=== PATIENT | female | born 2000 | race Caucasian/White ===

== ENCOUNTER 2019-02-15 22:50 | Emergency (ER) | payer SELFPAY ==
[2019-02-15 23:07] VITALS: BP 136/98
--- NOTE | 2019-02-16 01:09 | ED Physician Documentation ---
PD HPI HEENT - Stated complaint Stated Complaint: R EAR PX - Chief complaint Chief Complaint: Heent - History obtained from History obtained from: Patient - History of Present Illness Timing - onset: How many days ago (2-3) Timing - duration: Days Timing - details: Gradual onset, Constant, Waxing and waning Location: Right ear Improves: Nothing Worsens: Swalllowing Associated symptoms: No: Fever Similar symptoms before: Has not had sx before Recently seen: Not recently seen Review of Systems Constitutional: denies: Fever, Chills, Sweats Ears: reports: Ear pain PD PAST MEDICAL HISTORY - Past Medical History Past Medical History: No - Past Surgical History Past Surgical History: No - Present Medications Home Medications: Ambulatory Orders Medication Instructions Recorded Confirmed Amox/Clav 875/125 [Augmentin] 1 each PO Q12H #13 tablet 02/16/19 Hydrocodone/Acetaminophen 1 - 2 each PO Q6H PRN #14 tablet 02/16/19 [Hydrocodon-Acetaminophen 5-325] Neomycin/Polymyx/Hc Otic Drops 4 drops RIGHTEAR TID #1 bottle 02/16/19 [Cortisporin Ear Susp] - Allergies Allergies/Adverse Reactions: Allergies Allergy/AdvReac Type Severity Reaction Status Date / Time No Known Drug Allergies Allergy Verified 02/15/19 23:07 - Social History Does the pt smoke?: No Smoking Status: Never smoker Does the pt drink ETOH?: No Does the pt have substance abuse?: No PD ED PE NORMAL - Vitals Vital signs reviewed: Yes - General General: Alert and oriented X 3, No acute distress, Well developed/nourished - HEENT HEENT: Moist mucous membranes, Pharynx benign - Neck Neck: Supple, no meningeal sign PD ED PE EXPANDED - HEENT HEENT: R TM red, Other (right external auditory canal is erythematous and edematous. there is painful discomfort with traction on pinna and/or pressure on tragus) Results - Vitals Vitals: Vital Signs - 24 hr 02/15/19 23:03 Temperature 37 C Heart Rate 98 Respiratory 16 Rate Blood Pressure 136/98 H O2 Saturation 100 Oxygen O2 Source Room air PD MEDICAL DECISION MAKING - ED course Complexity details: considered differential, d/w patient Departure - Departure Disposition: Home, Self Care Clinical Impression: Otitis externa Qualifiers: Otitis externa type: unspecified type Chronicity: acute Laterality: right Qualified Code(s): H60.501 - Unspecified acute noninfective otitis externa, right ear Otitis media Qualifiers: Otitis media type: suppurative Chronicity: acute Laterality: right Recurrence: non-recurrent Spontaneous tympanic membrane rupture: without spontaneous rupture Qualified Code(s): H66.001 - Acute suppurative otitis media without spontaneous rupture of ear drum, right ear Condition: Good Health Concerns: right ear pain Plan of Treatment: antibiotic drops, oral antibiotic, oral analgesic Care Goals: pain control until symptom/infection resolution Assessment: see diagnoses Instructions: ED Otitis Media Acute Adult, ED Otitis Externa Prescriptions: Amox/Clav 875/125 [Augmentin] 1 each PO Q12H #13 tablet Hydrocodone/Acetaminophen [Hydrocodon-Acetaminophen 5-325] 1 - 2 each PO Q6H PRN #14 tablet PRN Reason: pain Neomycin/Polymyx/Hc Otic Drops [Cortisporin Ear Susp] 4 drops RIGHTEAR TID #1 bottle Discharge Date/Time: 02/16/19 01:40
[2019-02-16] MEDS ORDERED: NEOMYCIN/POLYMYX/HC OTIC DROPS RIGHTEAR STA (01:24)
[2019-02-16] MEDS ORDERED: HYDROcod/ACETAM 5/325 MG TABLET PO STA (01:24)
[2019-02-16] MEDS ORDERED: AMOX/CLAV 875 MG/125 MG TABLET PO STA (01:25)
== END 2019-02-16 01:40 | disposition home or self-care (01) ==
LOC: ED 22:50
DX: H60.91 Unspecified otitis externa, right ear (principal); H66.001 Acute suppurative otitis media without spontaneous rupture of ear drum, right ear
CPT/HCPCS: 99283; A9270

== ENCOUNTER 2019-04-03 17:20 | Emergency (ER) | payer OTHER ==
[2019-04-03 17:43] LABS: BASOPHILS % (AUTO) 0.4 %; EOSINOPHILS # (AUTO) 0.1 10^3/uL (0.0-0.7); EOSINOPHILS % (AUTO) 1.5 %; HGB - HEMOGLOBIN 12.8 g/dL (12.0-16.0); LYMPHOCYTES # (AUTO) 2.4 10^3/uL (1.5-3.5); LYMPHOCYTES % (AUTO) 29.3 %; MEAN CORPUSCULAR HEMOGLOBIN 23.3 pg (27.0-31.0); MEAN CORPUSCULAR HGB CONC 31.1 g/dL (32.0-36.0); MEAN PLATELET VOLUME 10.9 fL (7.9-10.8); MONOCYTES # (AUTO) 0.8 10^3/uL (0.0-1.0); MONOCYTES % (AUTO) 9.7 %; NEUTROPHILS # (AUTO) 4.8 10^3/uL (1.5-6.6); NEUTROPHILS % (AUTO) 58.9 %; PLT - PLATELET COUNT 362 10^3/uL (130-450); RED BLOOD COUNT 5.49 10^6/uL (4.20-5.40); RED CELL DISTRIBUTION WIDTH 17.2 % (12.0-15.0); WHITE BLOOD COUNT 8.2 x10^3/uL (4.8-10.8)
[2019-04-03 18:00] LABS: ALBUMIN 4.2 g/dL (3.2-5.5); ALBUMIN/GLOBULIN RATIO 1.2 (1.0-2.2); BILIRUBIN,TOTAL 0.2 mg/dL (0.2-1.0); CALCIUM 9.1 mg/dL (8.5-10.3); CREATININE 0.7 mg/dL (0.4-1.0); TOTAL PROTEIN 7.7 g/dL (6.7-8.2)
[2019-04-03 18:02] LABS: BILIRUBIN,URINE NEGATIVE (NEGATIVE); GLUCOSE, URINE (UA) NEGATIVE (NEGATIVE); KETONES,URINE (UA) NEGATIVE (NEGATIVE); LEUKOCYTE ESTERASE, URINE NEGATIVE (NEGATIVE); NITRITE,URINE NEGATIVE (NEGATIVE); OCCULT BLOOD,URINE TRACE-INTA (NEGATIVE); PH,URINE 7.5 PH (5.0-7.5); PROTEIN,URINE NEGATIVE (NEGATIVE); UROBILINOGEN,URINE 0.2 (NORMAL) E.U./dL (NORMAL)
[2019-04-03 18:03] LABS: CLARITY,URINE CLEAR (CLEAR)
--- NOTE | 2019-04-03 18:38 | ED Physician Documentation ---
PD HPI FEMALE - Stated complaint Stated Complaint: FEMALE - Chief complaint Chief Complaint: Abd Pain - History obtained from History obtained from: Patient - History of Present Illness Timing - onset: Today (this morning) Timing - details: Abrupt onset, Still present (had onset of some vag bleeding, small clot and now spotting, along with pelvic cramping that continues intermittent. Had had home preg tests positive (several tests over a few days) 2 weeks ago. Believes she is about 5-6 weeks .), Waxing and waning Associated symptoms: Vaginal bleeding. 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 denies: Dysuria, Frequency, Discharge Skin: denies: Rash, Lesions Neurologic: denies: Near syncope PD PAST MEDICAL HISTORY - Past Medical History Cardiovascular: None Respiratory: None - Past Surgical History Past Surgical History: No - Present Medications Home Medications: Ambulatory Orders Medication Instructions Recorded Confirmed Amox/Clav 875/125 [Augmentin] 1 each PO Q12H #13 tablet 02/16/19 Hydrocodone/Acetaminophen 1 - 2 each PO Q6H PRN #14 tablet 02/16/19 [Hydrocodon-Acetaminophen 5-325] Neomycin/Polymyx/Hc Otic Drops 4 drops RIGHTEAR TID #1 bottle 02/16/19 [Cortisporin Ear Susp] - Allergies Allergies/Adverse Reactions: Allergies Allergy/AdvReac Type Severity Reaction Status Date / Time No Known Drug Allergies Allergy Verified 04/03/19 17:28 - Social History Does the pt smoke?: No Smoking Status: Never smoker Does the pt drink ETOH?: No Does the pt have substance abuse?: No PD ED PE NORMAL - Vitals Vital signs reviewed: Yes - General General: Alert and oriented X 3, No acute distress, Well developed/nourished - HEENT HEENT: Pharynx benign - Neck Neck: Supple, no meningeal sign, No adenopathy - Cardiac Cardiac: RRR, No murmur - Respiratory Respiratory: Clear bilaterally - Abdomen Abdomen: Normal bowel sounds, Soft, Non tender - Female Female : Deferred - Back Back: No CVA TTP - Derm Derm: Normal color, Warm and dry Results - Vitals Vitals: Oxygen O2 Source Room air - Labs Labs: Laboratory Tests 04/03/19 04/03/19 04/03/19 17:35 17:35 17:35 WBC 8.2 RBC 5.49 H Hgb 12.8 Hct 41.2 MCV 75.0 L MCH 23.3 L MCHC 31.1 L RDW 17.2 H Plt Count 362 MPV 10.9 H Neut # (Auto) 4.8 Lymph # (Auto) 2.4 [place] # (Auto) 0.8 Eos # (Auto) 0.1 Baso # (Auto) 0.0 Absolute Nucleated RBC 0.00 Nucleated RBC % 0.0 Sodium 140 Potassium 4.0 Chloride 104 Carbon Dioxide 26 Anion Gap 10.0 BUN 10 Creatinine 0.7 Estimated GFR (MDRD) 107 Glucose 119 H Calcium 9.1 Total Bilirubin 0.2 AST 17 ALT 18 Alkaline Phosphatase 91 Total Protein 7.7 Albumin 4.2 Globulin 3.5 Albumin/Globulin Ratio 1.2 Lipase 27 HCG, Quant Urine Color Urine Clarity Urine pH Ur Specific [place] Urine Protein Urine Glucose (UA) Urine Ketones Urine Occult Blood Urine Nitrite Urine Bilirubin Urine Urobilinogen Ur Leukocyte Esterase Ur Microscopic Review Urine Culture Comments Blood Type O POSITIVE 04/03/19 04/03/19 17:35 17:55 WBC RBC Hgb Hct MCV MCH MCHC RDW Plt Count MPV Neut # (Auto) Lymph # (Auto) [place] # (Auto) Eos # (Auto) Baso # (Auto) Absolute Nucleated RBC Nucleated RBC % Sodium Potassium Chloride Carbon Dioxide Anion Gap BUN Creatinine Estimated GFR (MDRD) Glucose Calcium Total Bilirubin AST ALT Alkaline Phosphatase Total Protein Albumin Globulin Albumin/Globulin Ratio Lipase HCG, Quant < 0.60 Urine Color YELLOW Urine Clarity CLEAR Urine pH 7.5 Ur Specific [place] 1.015 Urine Protein NEGATIVE Urine Glucose (UA) NEGATIVE Urine Ketones NEGATIVE Urine Occult Blood TRACE-INTA Urine Nitrite NEGATIVE Urine Bilirubin NEGATIVE Urine Urobilinogen 0.2 (NORMAL) Ur Leukocyte Esterase NEGATIVE Ur Microscopic Review NOT INDICATED Urine Culture Comments NOT INDICATED Blood Type - Rads (name of study) pelvic U/S Radiology: Prelim report reviewed (normal. No IUP. ), See rad report PD MEDICAL DECISION MAKING - ED course Complexity details: reviewed results, considered differential (presume the home preg tests were true, the low quant and normal U/S would represent completed miscarriage. ), d/w patient Departure - Departure Disposition: 01 Home, Self Care Clinical Impression: Vaginal bleeding affecting early , Complete miscarriage Condition: Stable Record reviewed to determine appropriate education?: Yes Instructions: ED Miscarriage Completed Comments: If we presume your prior tests were accurate, then this would represent a complete miscarriage as you are hCG level is below the point and your ultrasound does not show any . I presume the cramping and bleeding will stop after a day or so. Tylenol ibuprofen as needed for pains. Stay well-hydrated. Recheck with your primary care if not all better over the next few days. Discharge Date/Time: 04/03/19 21:02
[2019-04-03 19:43] VITALS: BP 127/64
--- NOTE | 2019-04-03 20:50 | Ultrasound Report ---
Reason: had positive preg test 3 wks ago; vag bleeding Procedure Date: 04/03/2019 Accession Number: [id number] / [id number] Procedure: US - Pelvic w/Transvag+Doppler Ltd CPT Code: FULL RESULT: EXAM: PELVIC ULTRASOUND WITH DOPPLERS CLINICAL HISTORY: Had positive preg test 3 wks ago; vag bleeding. COMPARISON: None. TECHNIQUE: Realtime transabdominal imaging performed to identify the uterus and adnexa and as an overview of other pelvic structures, followed by transvaginal imaging for better assessment of the endometrium and adnexa, with static image documentation. Color flow imaging and Doppler spectral analysis was performed to evaluate blood flow to the ovaries given pelvic pain and clinical concern for ovarian torsion. FINDINGS: Uterus: 7.2 x 3.6 x 4.2 cm, volume 55.4 cc. Anteverted position. Normal overall size and echotexture. Masses: Right anterior 1.8 cm general fibroid. 1.2 cm left anterior intramural fibroid with a serosal component. Endometrium: 7 mm. No focal endometrial abnormalities. Cervix: Trace fluid Right Ovary: 2.7 x 3.3 x 2.2 cm, volume 10.3 cc. Normal echotexture. Arterial and venous blood flow are present. Adnexa are unremarkable. Left Ovary: 2.6 x 2 x 2.2 cm, volume 6.1 cc. Normal echotexture. Arterial and venous blood flow are present. Adnexa are unremarkable. Free Fluid: None. Other: None. IMPRESSION: No acute sonographic abnormalities. Fibroid uterus. RADIA
== END 2019-04-03 21:02 | disposition home or self-care (01) ==
LOC: ED 17:20
DX: O03.9 Complete or unspecified spontaneous abortion without complication (principal)
CPT/HCPCS: 36415; 76830; 76856; 80053; 81001; 81003; 83690; 84702; 85025; 86900; 86901; 87086; 93976; 99284

== ENCOUNTER 2019-06-02 04:47 | Emergency (ER) | payer OTHER ==
[2019-06-02] MEDS ORDERED: SODIUM CHLORIDE 0.9% 1,000 ML IV ONE (05:38)
[2019-06-02] MEDS ORDERED: LORazepam 2 MG/ML VIAL IVP STA (05:38)
[2019-06-02] MEDS ORDERED: KETOROLAC 15 MG/ML VIAL IVP STA (05:38)
[2019-06-02] MEDS ORDERED: MORPHINE 2 MG/ML CARPUJECT IVP STA (05:39)
[2019-06-02 06:15] LABS: BASOPHILS % (AUTO) 0.2 %; EOSINOPHILS # (AUTO) 0.2 10^3/uL (0.0-0.7); EOSINOPHILS % (AUTO) 2.1 %; HGB - HEMOGLOBIN 11.2 g/dL (12.0-16.0); LYMPHOCYTES # (AUTO) 2.8 10^3/uL (1.5-3.5); LYMPHOCYTES % (AUTO) 32.1 %; MEAN CORPUSCULAR HEMOGLOBIN 22.4 pg (27.0-31.0); MEAN CORPUSCULAR HGB CONC 30.2 g/dL (32.0-36.0); MEAN CORPUSCULAR VOLUME 74.2 fL (81.0-99.0); MEAN PLATELET VOLUME 10.7 fL (7.9-10.8); MONOCYTES # (AUTO) 0.8 10^3/uL (0.0-1.0); NEUTROPHILS # (AUTO) 4.9 10^3/uL (1.5-6.6); NEUTROPHILS % (AUTO) 56.3 %; PLT - PLATELET COUNT 354 10^3/uL (130-450); RED CELL DISTRIBUTION WIDTH 16.8 % (12.0-15.0); WHITE BLOOD COUNT 8.7 x10^3/uL (4.8-10.8)
--- NOTE | 2019-06-02 06:33 | CT Report ---
Reason: trouble speaking Procedure Date: 06/02/2019 Accession Number: [id number] / [id number] Procedure: CT - HEAD WO CPT Code: FULL RESULT: EXAM: CT HEAD EXAM DATE: 06/02/2019 06:10 AM. CLINICAL HISTORY: Trouble speaking. COMPARISON: None. TECHNIQUE: Multiaxial CT images were obtained from the foramen magnum to the vertex. Reformats: Sagittal and coronal. IV contrast: None. In accordance with CT protocol optimization, one or more of the following dose reduction techniques were utilized for this exam: automated exposure control, adjustment of mA and/or KV based on patient size, or use of iterative reconstructive technique. FINDINGS: Parenchyma: No intraparenchymal hemorrhage. No evidence of mass, midline shift, or CT findings of infarction. Bains-white differentiation is distinct. Extraaxial Spaces: Normal for age. No subdural or epidural collections identified. Ventricles: Normal in size and position. Sinuses and Orbits: Imaged paranasal sinuses, orbits, and mastoids show no significant abnormality. Bones: No evidence of fracture or calvarial defect. Other: None. IMPRESSION: Normal head CT. RADIA
[2019-06-02 06:37] LABS: ALBUMIN 3.9 g/dL (3.2-5.5); ALBUMIN/GLOBULIN RATIO 1.1 (1.0-2.2); ALKALINE PHOSPHATASE 93 IU/L (42-121); ALT ALANINE AMINOTRANSFERASE 15 IU/L (10-60); AST ASPARTATE AMINOTRANSFERASE 15 IU/L (10-42); BILIRUBIN,TOTAL < 0.2 mg/dL (0.2-1.0); BUN - BLOOD UREA NITROGEN 13 mg/dL (6-20); CALCIUM 8.9 mg/dL (8.5-10.3); CARBON DIOXIDE - CO2 24 mmol/L (21-32); CHLORIDE 107 mmol/L (101-111); CREATININE 0.6 mg/dL (0.4-1.0); GFR - MDRD 127 (>89); GLUCOSE 109 mg/dL (70-100); LIPASE 27 U/L (22-51); SODIUM 139 mmol/L (135-145); TOTAL PROTEIN 7.6 g/dL (6.7-8.2)
--- NOTE | 2019-06-02 06:45 | ED Physician Documentation ---
PD HPI ALTERED MENTAL STATUS - Stated complaint Stated Complaint: CONFUSION/SHAKING/SLURRED SPEECH - Chief complaint Chief Complaint: Cardiac - History obtained from History obtained from: Patient, Family - History of Present Illness Timing - onset: How many hours ago (1) Timing - duration: Hours (1) Timing - details: Abrupt onset (her partner said the patient started to have shaking while asleep. She awoke and had nausea and then vomited. She was having trouble speaking, seeming confused. Denies headache. Did have some chest pain and dyspnea.) Quality / character: Confused Associated symptoms: Dyspnea, NVD. No: Fever, Headache, Cough, Focal weakness Contributing factors: Other (She was seen about 6 weeks ago with presumed completed miscarriage. She and her partner state she has been having periods of anxiety and poor sleep and poor concentration since that time. She has had several episodes of general shakiness chest pain and shortness of breath. They were on a trip to [place] about 1-1/2 weeks ago and she had an episode they are similar to tonight. They went to the ER there and had blood tests x-ray and EKG and diagnosed with likely panic attack. No medications were prescribed. She had not been able to arrange a follow-up with her primary care as yet as they had been given an appointment for the of the month.). No: Recent illness, Recent injury Basline status: Alert and oriented X 3, Ambulatory Recently seen: Emergency Dept (About 10 days ago in [place] with a similar episode of chest pain and trouble breathing and confusion.), Other (She was seen about 6 weeks ago with some vaginal bleeding and cramping with diagnosis of completed miscarriage.) Review of Systems Constitutional: denies: Fever, Chills, Myalgias Nose: denies: Rhinorrhea / runny nose, Congestion Throat: denies: Sore throat Cardiac: reports: Chest pain / pressure, Palpitations, Pedal edema (mild at a nkles). denies: Calf pain Respiratory: denies: Cough GI: reports: Nausea, Vomiting (just this overnight, single episode). denies: Abdominal Pain, Diarrhea : denies: Dysuria, Frequency Musculoskeletal: denies: Neck pain, Back pain Neurologic: reports: Generalized weakness, Difficulty speaking. denies: Focal weakness, Numbness, Seizure, Headache, Head injury PD PAST MEDICAL HISTORY - Past Medical History Cardiovascular: None Respiratory: None - Past Surgical History Past Surgical History: No - Present Medications Home Medications: Ambulatory Orders Medication Instructions Recorded Confirmed LORazepam [Ativan] 1 mg PO BID PRN #15 tablet 06/02/19 Naproxen 500 mg PO BID #20 tablet 06/02/19 Trazodone HCl 25 - 50 mg PO QPM #15 tablet 06/02/19 - Allergies Allergies/Adverse Reactions: Allergies Allergy/AdvReac Type Severity Reaction Status Date / Time Bleach (Sodium Hypochlorite) Allergy Itching Verified 06/02/19 05:16 - Social History Does the pt smoke?: No Smoking Status: Never smoker Does the pt drink ETOH?: No Does the pt have substance abuse?: No PD ED PE NORMAL - Vitals Vital signs reviewed: Yes - General General: Alert and oriented X 3, No acute distress (She does seem generally a bit shaky and anxious. She is having some stuttering type speech pattern but is able to answer questions appropriately. She is awake and alert.), Well developed/nourished - HEENT HEENT: Pharynx benign, Other (no oral lesions) - Neck Neck: Supple, no meningeal sign, No adenopathy - Cardiac Cardiac: RRR (Regular but tachycardic.), No murmur - Respiratory Respiratory: No respiratory distress, Clear bilaterally, Other (Some tenderness noted in the parasternal area without any redness nor crepitance.) - Abdomen Abdomen: Soft, Non tender - Derm Derm: Normal color, Warm and dry - Extremities Extremities: No tenderness to palpate, Normal ROM s pain, No edema, Other (Mild calf tenderness on the right leg. No redness no edema.) - Neuro Neuro: Alert and oriented X 3, ict account manager 2-12 intact, No motor deficit, No sensory deficit. No: Normal speech (Slight stuttering and word search. It does seem to improve when she takes of breath and relaxes a little) Eye Opening: Spontaneous Motor: Obeys Commands Verbal: Oriented GCS Score: 15 - Psych Psych: No: Normal affect (anxious) Results - Vitals Vitals: Vital Signs - 24 hr 06/02/19 05:06 Temperature 37.4 C Heart Rate 114 H Respiratory 17 Rate Blood Pressure 122/48 L O2 Saturation 100 Oxygen O2 Source Room air - EKG (time done) 05:13 Rate: Rate (enter#) (91) Rhythm: NSR [place]: Normal Intervals: Normal [place] QRS: Normal Ischemia: Normal ST segments. No: ST elevation c/w ischemia, ST depression - Labs Labs: Laboratory Tests 06/02/19 06/02/19 06/02/19 06:00 06:00 06:00 WBC 8.7 RBC 5.00 Hgb 11.2 L Hct 37.1 MCV 74.2 L MCH 22.4 L MCHC 30.2 L RDW 16.8 H Plt Count 354 MPV 10.7 Neut # (Auto) 4.9 Lymph # (Auto) 2.8 [place] # (Auto) 0.8 Eos # (Auto) 0.2 Baso # (Auto) 0.0 Absolute Nucleated RBC 0.00 Nucleated RBC % 0.0 D-Dimer < 200.0 L Sodium 139 Potassium 3.4 L Chloride 107 Carbon Dioxide 24 Anion Gap 8.0 BUN 13 Creatinine 0.6 Estimated GFR (MDRD) 127 Glucose 109 H Calcium 8.9 Magnesium 2.0 Total Bilirubin < 0.2 L AST 15 ALT 15 Alkaline Phosphatase 93 Troponin I High Sens Total Protein 7.6 Albumin 3.9 Globulin 3.7 Albumin/Globulin Ratio 1.1 Lipase 27 TSH 06/02/19 06/02/19 06:00 06:00 WBC RBC Hgb Hct MCV MCH MCHC RDW Plt Count MPV Neut # (Auto) Lymph # (Auto) [place] # (Auto) Eos # (Auto) Baso # (Auto) Absolute Nucleated RBC Nucleated RBC % D-Dimer Sodium Potassium Chloride Carbon Dioxide Anion Gap BUN Creatinine Estimated GFR (MDRD) Glucose Calcium Magnesium Total Bilirubin AST ALT Alkaline Phosphatase Troponin I High Sens 2.6 Total Protein Albumin Globulin Albumin/Globulin Ratio Lipase TSH 4.27 - Rads (name of study) chest xray Radiology: Prelim report reviewed (normal), See rad report head CT Radiology: Prelim report reviewed (No acute process), See rad report PD MEDICAL DECISION MAKING - ED course Complexity details: considered differential (Does seem possibly panic attack with anxiety and shakiness right now. She does not have any headache as would consider a migraine with some shakiness difficulty speaking and nausea. Still could be some version of a migraine. Her chest is uncomfortable and her EKG chest x-ray and blood tests are normal. This excludes [place] and PE. Also excludes pneumonia and pneumothorax.), d/w patient ED course: She has been having general anxiety since her miscarriage about 6 weeks ago. She has been having chest pain episodes and shakiness. We could go short-term with some antianxiety type medicine and also a sleep aid at night as she states she has not slept very well for last several nights. It does not sound seizure like. They should follow-up with her primary care at the soonest appointment. Meanwhile we can prescribe perhaps low-dose trazodone at night for sleep and general anxiety and supplement with Ativan twice daily if needed for anxiety. For the chest pain, will prescribe naproxen anti-inflammatory twice daily for 7 to 10 days and add Tylenol if needed. Departure - Departure Disposition: Home, Self Care Clinical Impression: Anxiety reaction Chest pain Qualifiers: Chest pain type: chest pain on breathing Qualified Code(s): R07.1 - Chest pain on breathing; R07.81 - Pleurodynia AMS (altered mental status) Qualifiers: Altered mental status type: disorientation Qualified Code(s): R41.0 - Disorientation, unspecified Condition: Stable Record reviewed to determine appropriate education?: Yes Instructions: ED Chest Pain Costochondritis, ED Stress React Follow-Up: ED[facility]UN[facility] Lujan [Provider Group] Prescriptions: LORazepam [Ativan] 1 mg PO BID PRN #15 tablet PRN Reason: Anxiety Naproxen 500 mg PO BID #20 tablet Trazodone HCl 25 - 50 mg PO QPM #15 tablet Comments: Stay well-hydrated and normal activity. Naproxen anti-inflammatory twice daily with food for the next 7 to 10 days for the chest wall/chest pain. Use half to 1 tablet of the trazodone at night to help with sleep and see if it helps with general anxiety throughout the day as well. Add lorazepam twice daily if needed for general anxiety. Follow-up with your primary care at their soonest appointment. Seek counseling to help with acute grief reaction.
--- NOTE | 2019-06-02 06:49 | XRAY Report ---
Reason: chest pain Procedure Date: 06/02/2019 Accession Number: [id number] / [id number] Procedure: XR - Chest 1 View X-Ray CPT Code: 19331 FULL RESULT: EXAM: CHEST RADIOGRAPHY EXAM DATE: 06/02/2019 06:14 AM. CLINICAL HISTORY: Chest pain. COMPARISON: None. TECHNIQUE: 1 view. FINDINGS: Lungs/Pleura: No focal opacities evident. No pleural effusion. No pneumothorax. Mediastinum: Within exam limitations, the cardiomediastinal contour is normal. Other: None. IMPRESSION: Normal single view chest. RADIA
[2019-06-02 07:39] VITALS: BP 118/54
== END 2019-06-02 07:40 | disposition home or self-care (01) ==
LOC: ED 04:47
DX: F41.9 Anxiety disorder, unspecified (principal); R07.1 Chest pain on breathing; R07.81 Pleurodynia; R41.0 Disorientation, unspecified; R47.9 Unspecified speech disturbances; M79.661 Pain in right lower leg
CPT/HCPCS: 36415; 70450; 71045; 83690; 83735; 84484; 85379; 93005; 96374; 96375; 99283; 99284; J2060; 80053; 84443; 85025

== ENCOUNTER 2021-01-09 21:27 | Emergency (ER) | payer SELFPAY ==
--- OUTSIDE RECORDS SUMMARY | 2021-01-09 21:31 | EXTERNAL MEDICAL SUMMARY RPT | Continuity of Care Document ---
:2000 Demographics Phone Unavailable Preferred Language Unknown Marital Status Unknown Congregational Affiliation Unknown Race Unknown Ethnic Group Unknown Author Organization [address] [place] [address] Phone Allergies Encounters Medications Problems Results
[2021-01-09 22:11] VITALS: BP 138/74
--- NOTE | 2021-01-09 22:14 | ED Physician Documentation ---
PD HPI LOWER EXT INJURY - Stated complaint Stated Complaint: L FOOT INJ - Chief complaint Chief Complaint: Ext Problem - History obtained from History obtained from: Patient - History of Present Illness PD HPI LOW EXT INJURY LOCATION: Left, Toe (little and 4th toes) Type of injury: Blunt / blow (she struck toes on coffee table leg, with bending/splaying of the toes. Some bruising through the day and swelling. Hurting for walking through the day.) Where injury occurred: Home Timing - onset: Today (this morning) Timing - duration: Days (1/2 day) Timing - details: Abrupt onset, Still present Worsened by: Moving, Palpating Associated symptoms: Swelling, Discolored (some early bruising 4th toe middle phalanx dorsal). 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 : None HEENT: None Psych: None Musculoskeletal: None Derm: None - Past Surgical History Past Surgical History: No - Present Medications Home Medications: Ambulatory Orders Medication Instructions Recorded Confirmed No Known Home Medications 01/09/21 01/09/21 - Allergies Allergies/Adverse Reactions: Allergies Allergy/AdvReac Type Severity Reaction Status Date / Time Bleach (Sodium Hypochlorite) Allergy Itching Verified 01/09/21 22:11 - Social History Does the pt smoke?: No Smoking Status: Never smoker Does the pt drink ETOH?: No Does the pt have substance abuse?: No - Immunizations Immunizations are current?: Yes - POLST Patient has POLST: No PD ED PE NORMAL - Vitals Vital signs reviewed: Yes - General General: Alert and oriented X 3, No acute distress, Well developed/nourished - Derm Derm: Normal color, Warm and dry - Extremities Extremities: Other (4th and 5th toes tender dorsal aspect with faint bruising dorsal 4th middle phalanx. No noted deformity. Some swelling. Reluctant flexion due to pain/swelling. Normal color in cap refill. Normal sensation. ) - Neuro Neuro: No motor deficit, No sensory deficit Results - Vitals Vitals: Vital Signs - 24 hr 01/09/21 01/09/21 22:43 23:01 Respiratory 16 15 Rate Oxygen O2 Source Room air - Rads (name of study) toes Radiology: Prelim report reviewed (no fractures), See rad report PD MEDICAL DECISION MAKING - ED course Complexity details: considered differential, d/w patient Departure - Departure Disposition: Home, Self Care Clinical Impression: Sprain of toe Qualifiers: Encounter type: initial encounter Qualified Code(s): S93.509A - Unspecified sprain of unspecified toe(s), initial encounter Condition: Stable Record reviewed to determine appropriate education?: Yes Instructions: ED Sprain Toe Follow-Up: [facility] Lujan [Provider Group] Comments: No fracture seen on your x-ray. Presume you will still be sore and swollen from the injury and sprain for several days or so. Firm soled shoe and I wrote a note for no boot wearing for 3 to 4 days to allow improvement in the initial injury. Ibuprofen 400 to 600 mg 3 times a day for the next several days. Add Tylenol if needed for pains. Activity as tolerated. Forms: Activity restrictions Discharge Date/Time: 01/09/21 23:09
[2021-01-09] MEDS ORDERED: ACETAMINOPHEN 325 MG TABLET PO STA (22:24)
[2021-01-09] MEDS ORDERED: IBUPROFEN 600 MG TABLET PO STA (22:24)
--- OUTSIDE RECORDS SUMMARY | 2021-01-09 22:37 | EXTERNAL MEDICAL SUMMARY RPT | Continuity of Care Document ---
:2000 Demographics Phone Unavailable Preferred Language Unknown Marital Status Unknown Baptism Affiliation Unknown Race Unknown Ethnic Group Unknown Author Organization [facility] Address [address] [place] [address] Phone Allergies Encounters Medications Problems Results
--- NOTE | 2021-01-10 10:23 | XRAY Report ---
PROCEDURE: Foot 3 View LT INDICATIONS: PAIN/TENDERNESS L FOOT TECHNIQUE: 3 views of the foot were acquired. COMPARISON: None FINDINGS: Bones: No fractures or dislocations. No suspicious bony lesions. Soft tissues: No tibiotalar joint effusion. Achilles tendon appears normal. IMPRESSION: No visualized acute fracture or dislocation. However, occult injury cannot be excluded. Recommend brittany rt interval imaging follow-up in 7-10 days as clinically indicated for additional evaluation. Reviewed by: Juana Chaney MD on 01/10/2021 10:22 AM PDT Approved by: Juana Chaney MD on 01/10/2021 10:22 AM PDT Station ID: [id number]
== END 2021-01-09 23:09 | disposition home or self-care (01) ==
LOC: ED 21:27
DX: S93.515A Sprain of interphalangeal joint of left lesser toe(s), initial encounter (principal); S90.122A Contusion of left lesser toe(s) without damage to nail, initial encounter; W22.03XA Walked into furniture, initial encounter; Y93.01 Activity, walking, marching and hiking; Y92.009 Unspecified place in unspecified non-institutional (private) residence as the place of occurrence of the external cause
CPT/HCPCS: 73630; 99282; 99283; A9270

== ENCOUNTER 2021-02-06 18:41 | Emergency (ER) | payer SELFPAY ==
[2021-02-06 19:45] LABS: BASOPHILS % (AUTO) 0.2 %; EOSINOPHILS # (AUTO) 0.1 10^3/uL (0.0-0.7); EOSINOPHILS % (AUTO) 1.3 %; HGB - HEMOGLOBIN 10.9 g/dL (12.0-16.0); LYMPHOCYTES # (AUTO) 2.3 10^3/uL (1.5-3.5); LYMPHOCYTES % (AUTO) 24.7 %; MEAN CORPUSCULAR HGB CONC 29.5 g/dL (32.0-36.0); MEAN CORPUSCULAR VOLUME 71.2 fL (81.0-99.0); MEAN PLATELET VOLUME 10.8 fL (7.9-10.8); MONOCYTES # (AUTO) 0.8 10^3/uL (0.0-1.0); MONOCYTES % (AUTO) 8.1 %; NEUTROPHILS # (AUTO) 6.1 10^3/uL (1.5-6.6); NEUTROPHILS % (AUTO) 65.4 %; PLT - PLATELET COUNT 388 10^3/uL (130-450); RED CELL DISTRIBUTION WIDTH 17.7 % (12.0-15.0); WHITE BLOOD COUNT 9.4 x10^3/uL (4.8-10.8)
[2021-02-06 19:56] LABS: ALBUMIN 4.1 g/dL (3.2-5.5); ALBUMIN/GLOBULIN RATIO 1.2 (1.0-2.2); BILIRUBIN,TOTAL 0.4 mg/dL (0.2-1.0); CALCIUM 8.6 mg/dL (8.5-10.3); CREATININE 0.7 mg/dL (0.4-1.0); POTASSIUM 3.8 mmol/L (3.5-5.0); TOTAL PROTEIN 7.6 g/dL (6.7-8.2)
[2021-02-06 20:04] LABS: BILIRUBIN,URINE NEGATIVE (NEGATIVE); CLARITY,URINE CLEAR (CLEAR); GLUCOSE, URINE (UA) NEGATIVE (NEGATIVE); KETONES,URINE (UA) NEGATIVE (NEGATIVE); LEUKOCYTE ESTERASE, URINE NEGATIVE (NEGATIVE); NITRITE,URINE NEGATIVE (NEGATIVE); OCCULT BLOOD,URINE NEGATIVE (NEGATIVE); PH,URINE 6.5 PH (5.0-7.5); PROTEIN,URINE NEGATIVE (NEGATIVE); UROBILINOGEN,URINE 0.2 (NORMAL) E.U./dL (NORMAL)
--- NOTE | 2021-02-06 20:20 | ED Physician Documentation ---
History of Present Illness - Stated complaint Stated Complaint: CRAMPS/NAUSEA/DIZZY - Chief complaint Chief Complaint: Abd Pain - Additonal information Additional information: 20-year-old female presents emergency department for evaluation of a constellation of symptoms. For much of the last week she has been feeling faint and dizzy. She would feel dizzy if she stood up too fast. She has been nauseated and sensitive to light and smell. She has also had a headache. She took a number of home test that were negative. She has begun having lower abdominal uterine pain that began 3 days ago and the worst was this afternoon. Mostly right-sided. Some nausea. Vomiting once no diarrhea. No dysuria urgency or frequency. 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 Review of Systems Constitutional: reports: Fatigue. denies: Fever, Chills Eyes: denies: Loss of vision, Decreased vision Ears: reports: Reviewed and negative Nose: reports: Reviewed and negative Throat: reports: Reviewed and negative Cardiac: denies: Chest pain / pressure, Palpitations Respiratory: denies: Dyspnea, Cough GI: reports: Abdominal Pain, Nausea, Vomiting. denies: Constipation, Diarrhea, Hematemesis : denies: Dysuria, Frequency, Hesitancy Skin: denies: Rash, Lesions Musculoskeletal: denies: Neck pain, Back pain Neurologic: reports: Near syncope, Headache. denies: Generalized weakness, Focal weakness, Syncope, Seizure, Confused, Altered mental status, LOC PD PAST MEDICAL HISTORY - Past Medical History Past Medical History: Yes Cardiovascular: None Respiratory: None Neuro: None Endocrine/Autoimmune: None GI: None ADDICTIONS RECOVERY SPECIALIST: None : None HEENT: None Psych: None Musculoskeletal: None Derm: None - Past Surgical History Past Surgical History: No - Present Medications Home Medications: Ambulatory Orders Medication Instructions Recorded Confirmed No Known Home Medications 01/09/21 01/09/21 - Allergies Allergies/Adverse Reactions: Allergies Allergy/AdvReac Type Severity Reaction Status Date / Time Bleach (Sodium Hypochlorite) Allergy Itching Verified 02/06/21 19:25 - Social History Does the pt smoke?: No Smoking Status: Never smoker Does the pt drink ETOH?: No Does the pt have substance abuse?: No - Immunizations Immunizations are current?: Yes - POLST Patient has POLST: No PD ED PE EXPANDED - General General: Alert, No acute distress, Well developed/nourished - Cardiac Cardiac: Regular Rate, Radial strong equal, Pedal strong equal, Cap refill < 2 sec. No: Murmur Present - Respiratory Respiratory: Clear to ausultation abdullahi. No: Distress, Labored - Abdomen Abdomen: Normal Bowel sounds. No: Tender to palpation - Derm Derm: Normal color, Warm and dry - Extremities Extremities: Normal. No: Deformity, Tenderness - Neuro Neuro: Alert and Oriented X 3, CNII-XII intact, Normal gait, Normal finger nose, Normal speech - GCS Eye Opening: Spontaneous Motor: Obeys Commands Verbal: Oriented Total: 15 Results - Vitals Vitals: Vital Signs - 24 hr 02/06/21 02/06/21 02/06/21 19:20 19:24 21:22 Temperature 37.0 C Heart Rate 96 84 Heart Rate [ 82 Sitting] Heart Rate [ 91 Standing] Heart Rate [ 90 Supine] Respiratory 18 15 Rate Blood Pressure 126/79 111/88 H Blood Pressure 120/73 [Sitting] Blood Pressure 123/76 [Standing] Blood Pressure 128/74 [Supine] O2 Saturation 100 100 Oxygen O2 Source Room air - EKG (time done) 2021 Rate: Rate (enter#) (82) Rhythm: NSR [place]: Normal Intervals: Normal IN QRS: Normal Ischemia: Normal ST segments Compare to prior EKG: Old EKG unavailable Computer interpretation: Agree with computer - Labs Labs: Laboratory Tests 02/06/21 02/06/21 02/06/21 18:30 18:30 19:36 WBC 9.4 RBC 5.20 Hgb 10.9 L Hct 37.0 MCV 71.2 L MCH 21.0 L MCHC 29.5 L RDW 17.7 H Plt Count 388 MPV 10.8 Neut # (Auto) 6.1 Lymph # (Auto) 2.3 [place] # (Auto) 0.8 Eos # (Auto) 0.1 Baso # (Auto) 0.0 Absolute Nucleated RBC 0.00 Nucleated RBC % 0.0 Sodium Potassium Chloride Carbon Dioxide Anion Gap BUN Creatinine Estimated GFR (MDRD) Glucose Calcium Total Bilirubin AST ALT Alkaline Phosphatase Total Protein Albumin Globulin Albumin/Globulin Ratio Lipase Serum HCG, Qual Urine Color YELLOW Urine Clarity CLEAR Urine pH 6.5 Ur Specific [place] 1.025 Urine Protein NEGATIVE Urine Glucose (UA) NEGATIVE Urine Ketones NEGATIVE Urine Occult Blood NEGATIVE Urine Nitrite NEGATIVE Urine Bilirubin NEGATIVE Urine Urobilinogen 0.2 (NORMAL) Ur Leukocyte Esterase NEGATIVE Ur Microscopic Review NOT INDICATED Urine Culture Comments NOT INDICATED Urine HCG, Qual NEGATIVE 02/06/21 02/06/21 19:36 19:36 WBC RBC Hgb Hct MCV MCH MCHC RDW Plt Count MPV Neut # (Auto) Lymph # (Auto) [place] # (Auto) Eos # (Auto) Baso # (Auto) Absolute Nucleated RBC Nucleated RBC % Sodium 137 Potassium 3.8 Chloride 106 Carbon Dioxide 25 Anion Gap 6.0 BUN 13 Creatinine 0.7 Estimated GFR (MDRD) 105 Glucose 112 H Calcium 8.6 Total Bilirubin 0.4 AST 13 ALT 16 Alkaline Phosphatase 90 Total Protein 7.6 Albumin 4.1 Globulin 3.5 Albumin/Globulin Ratio 1.2 Lipase 25 Serum HCG, Qual NEGATIVE Urine Color Urine Clarity Urine pH Ur Specific [place] Urine Protein Urine Glucose (UA) Urine Ketones Urine Occult Blood Urine Nitrite Urine Bilirubin Urine Urobilinogen Ur Leukocyte Esterase Ur Microscopic Review Urine Culture Comments Urine HCG, Qual - Rads (name of study) CT abd Radiology: Final report received (Appendix is at the upper limits of normal in size without periappendiceal inflammation. Right lower quadrant subcentimeter lymph nodes are present suggestive of mesenteric adenitis) PD MEDICAL DECISION MAKING - ED course Complexity details: reviewed results, re-evaluated patient, d/w patient ED course: 20-year-old female presents emergency department for evaluation of feeling faint and lightheaded as well as nausea and right lower quadrant abdominal pain. The symptoms have been persisting for a few days. On exam she had right lower quadrant tenderness with a little bit of guarding and rebound. She was unsure if but her urine and serum chemistry today is a negative for . Screening labs do show a known and baseline microcytic anemia likely iron deficient. A CT of the abdomen does show likely mesenteric adenitis. No findings consistent with acute appendicitis. Patient was feeling improved here in the ER following IV fluids as well as analgesia and Zofran. Will recommend fluids and rest at home. Emergent return precautions were discussed for worsening symptoms. Departure - Departure Disposition: 01 Home, Self Care Clinical Impression: RLQ abdominal pain, Mesenteric adenitis Condition: Stable Record reviewed to determine appropriate education?: Yes Instructions: ED Adenitis Mesenteric Comments: You were seen in the emergency department today for headache, feeling lightheaded nauseated as well as having lower abdominal pain. Your screening labs did not show any worrisome findings though you do have a baseline but unchanged anemia. Continue vitamins. As we discussed the CT of the abdomen does show mesenteric adenitis. This is an inflammation in the lymph no todd of your mesenteric line. This is something that is typically self resolving and does not need antibiotics or other treatment. I do recommend ibuprofen with food 2-3 times a day. Take lots of fluids and get plenty rest. Return to the ER for fevers, suddenly severe or different abdominal pain, uncontrolled vomiting. Please discuss this ED visit with your primary care doctor as soon as you are able.
[2021-02-06 20:24] LABS: HCG UR QUAL NEGATIVE
[2021-02-06] MEDS ORDERED: IOVERSOL 320 100 ML VIAL IVP ONE ×2 (20:24→21:13)
[2021-02-06 20:37] LABS: HCG,QUALITATIVE BLOOD NEGATIVE
--- NOTE | 2021-02-06 21:46 | CT Report ---
PROCEDURE: Abdomen/Pelvis W INDICATIONS: RLQ abd pain CONTRAST: IV CONTRAST: Optiray 320 ml: 100 PO CONTRAST: *NO PO CONTRAST TECHNIQUE: After the administration of IV contrast, 5 mm thick sections acquired from the diaphragms to the symp hysis. 5 mm thick coronal and sagittal reformats were acquired. For radiation dose reduction, the f ollowing was used: automated exposure control, adjustment of mA and/or kV according to patient size. COMPARISON: None. FINDINGS: Image quality: Excellent. ABDOMEN: Lung bases: Lung bases are clear. Heart size is normal. Solid organs: Liver is mildly enlarged with steatosis. The spleen is normal in size and enhancement. Gallbladder . unremarkable Biliary system is non dilated. Pancreas enhances normally. No adrenal nodules. Kidneys demonstrate normal size and enhancement, without hydronephrosis. Peritoneum and bowel: Bowel loops demonstrate normal wall thickness and caliber. No free fluid or a ir. Appendix is visualized and at the upper limits of normal in size. There is no surrounding periap pendiceal inflammation. Nodes and vessels: No retroperitoneal or mesenteric adenopathy by size criteria. Aorta and inferior vena cava are normal in size. Multiple right lower quadrant lymph nodes are present, the largest me asuring approximately 5 mm. Miscellaneous: Fat-containing ventral hernia. PELVIS: Genitourinary: Bladder wall thickness is normal. Miscellaneous: No inguinal hernias or adenopathy. Bones: No suspicious bony lesions. No vertebral body compression fractures. IMPRESSION: 1. Appendix is at the upper limits of normal in size without periappendiceal inflammation. Right lowe r quadrant subcentimeter lymph nodes are present suggestive of mesenteric adenitis. Reviewed by: Juana Chaney MD on 02/06/2021 9:45 PM PDT Approved by: Juana Chaney MD on 02/06/2021 9:45 PM PDT Station ID: [id number]
[2021-02-06 22:09] VITALS: BP 132/80
== END 2021-02-06 22:09 | disposition home or self-care (01) ==
LOC: ED 18:41
DX: I88.0 Nonspecific mesenteric lymphadenitis (principal); R10.31 Right lower quadrant pain
CPT/HCPCS: 36415; 74177; 80053; 81003; 81025; 83690; 84703; 85025; 93005; 99284; Q9967; 81001; 87086

== ENCOUNTER 2021-03-23 09:19 | Emergency (ER) | payer MEDICAID ==
[2021-03-23 09:50] VITALS: BP 129/80
--- NOTE | 2021-03-23 10:11 | ED Physician Documentation ---
History of Present Illness - Stated complaint Stated Complaint: SOA,BODY ACHES,FEVER - Chief complaint Chief Complaint: General - History obtained from History obtained from: Patient - History of Present Illness Timing: How many days ago (2) Pain level max: 0 Pain level now: 0 - Additonal information Additional information: Patient is a 20-year-old female who presents to the emergency department with 2 days of cough, congestion, runny nose, sore throat and body aches. She has not yet had her Covid vaccination. Has not taken anything for her symptoms. Nothing makes it better or worse. Occasional nausea, no vomiting. Denies any possibility of . Review of Systems Constitutional: denies: Fever, Chills Nose: reports: Rhinorrhea / runny nose, Congestion Throat: reports: Sore throat Cardiac: reports: Chest pain / pressure (Patient states she gets sharp pains when she coughs). denies: Palpitations Respiratory: reports: Cough. denies: Dyspnea, Wheezing GI: reports: Nausea. denies: Vomiting, Diarrhea Skin: denies: Rash Musculoskeletal: denies: Neck pain, Back pain PD PAST MEDICAL HISTORY - Past Medical History Cardiovascular: None Respiratory: None Neuro: None Endocrine/Autoimmune: None GI: None FINANCIAL MANAGEMENT: None : None HEENT: None Psych: None Musculoskeletal: None Derm: None - Past Surgical History Past Surgical History: No - Present Medications Home Medications: Ambulatory Orders Medication Instructions Recorded Confirmed Benzonatate [Tessalon] 200 mg PO TID PRN #30 cap 03/23/21 Cetirizine HCl/Pseudoephedrine 1 each PO BID PRN #30 ea 03/23/21 [Zyrtec-D Tablet] Ibuprofen [Motrin] 800 mg PO Q8H PRN #30 tablet 03/23/21 - Allergies Allergies/Adverse Reactions: Allergies Allergy/AdvReac Type Severity Reaction Status Date / Time Bleach (Sodium Hypochlorite) Allergy Itching Verified 03/23/21 09:50 - Social History Does the pt smoke?: No Smoking Status: Never smoker Does the pt drink ETOH?: No Does the pt have substance abuse?: No - Immunizations Immunizations are current?: Yes - POLST Patient has POLST: No PD ED PE NORMAL - Vitals Vital signs reviewed: Yes - General General: Alert and oriented X 3, No acute distress, Well developed/nourished - HEENT HEENT: PERRL, Ears normal, Moist mucous membranes, Pharynx benign - Neck Neck: Supple, no meningeal sign - Cardiac Cardiac: RRR, Strong equal pulses - Respiratory Respiratory: No respiratory distress, Clear bilaterally - Abdomen Abdomen: Soft, Non tender, Non distended - Back Back: No CVA TTP - Derm Derm: Warm and dry - Extremities Extremities: No edema - Neuro Neuro: Alert and oriented X 3 - Psych Psych: Normal mood, Normal affect Results - Vitals Vitals: Vital Signs - 24 hr 03/23/21 09:39 Temperature 36.3 C L Heart Rate 75 Respiratory 16 Rate Blood Pressure 129/80 O2 Saturation 99 Oxygen O2 Source Room air PD MEDICAL DECISION MAKING - ED course Complexity details: reviewed results, re-evaluated patient, considered differential, d/w patient ED course: Patient with what appears to be a viral upper respiratory infection. She is well-appearing, nontoxic. Afebrile. Covid test performed. Sounds more consistent with a rhinovirus at the moment. We will continue conservative care and have her follow-up with her doctor. Encourage vaccination. Patient counseled regarding signs and symptoms for which I believe and urgent re- evaluation would be necessary. Patient with good understanding of and agreement to plan and is comfortable going home at this time This document was made in part using voice recognition software. While efforts are made to proofread this document, sound alike and grammatical errors may occur. Departure - Departure Disposition: 01 Home, Self Care Clinical Impression: Viral URI with cough Condition: Good Instructions: ED URI Viral Follow-Up: your,doctor in 1 week if not better [Other] Prescriptions: Ibuprofen [Motrin] 800 mg PO Q8H PRN #30 tablet PRN Reason: PAIN &/OR FEVER Benzonatate [Tessalon] 200 mg PO TID PRN #30 cap PRN Reason: Cough Cetirizine HCl/Pseudoephedrine [Zyrtec-D Tablet] 1 each PO BID PRN #30 ea PRN Reason: nasal congestion Comments: You have a Covid test pending. You need to self quarantine until the result is done and negative. Do not leave your house. Do not get near anybody. The results should be done in 48 to 72 hours. We will call with a positive result, the fastest way to get a negative result for confirmation though is to go to the hospital website at [email or web address], click on the my [facility] tab and sign up for the patient portal. If any friends or family get sick and would like to have a Covid test done, but do not have signs or symptoms that would necessitate being hospitalized, we encourage testing through our coronavirus swabbing station, call [phone] to schedule an appointment. Forms: Activity restrictions Discharge Date/Time: 03/23/21 10:30
[2021-03-23] MEDS: IBUPROFEN 800 MG TABLET PO STA (10:23)
== END 2021-03-23 10:30 | disposition home or self-care (01) ==
LOC: ED 09:19
DX: J06.9 Acute upper respiratory infection, unspecified (principal); Z20.822 Contact with and (suspected) exposure to COVID-19
CPT/HCPCS: 87635; 99283; 99284; A9270

== ENCOUNTER 2021-03-31 20:26 | Emergency (ER) | payer MEDICAID ==
[2021-03-31 20:51] LABS: BILIRUBIN,URINE NEGATIVE (NEGATIVE); GLUCOSE, URINE (UA) NEGATIVE (NEGATIVE); KETONES,URINE (UA) NEGATIVE (NEGATIVE); LEUKOCYTE ESTERASE, URINE NEGATIVE (NEGATIVE); NITRITE,URINE NEGATIVE (NEGATIVE); OCCULT BLOOD,URINE NEGATIVE (NEGATIVE); PROTEIN,URINE NEGATIVE (NEGATIVE); UROBILINOGEN,URINE 0.2 (NORMAL) E.U./dL (NORMAL)
[2021-03-31 20:52] LABS: CLARITY,URINE CLEAR (CLEAR)
[2021-03-31 20:54] LABS: BASOPHILS % (AUTO) 0.3 %; EOSINOPHILS # (AUTO) 0.1 10^3/uL (0.0-0.7); EOSINOPHILS % (AUTO) 0.7 %; HCT - HEMATOCRIT 36.3 % (37.0-47.0); LYMPHOCYTES # (AUTO) 2.9 10^3/uL (1.5-3.5); LYMPHOCYTES % (AUTO) 26.6 %; MEAN CORPUSCULAR HEMOGLOBIN 21.8 pg (27.0-31.0); MEAN CORPUSCULAR HGB CONC 30.3 g/dL (32.0-36.0); MEAN CORPUSCULAR VOLUME 71.9 fL (81.0-99.0); MEAN PLATELET VOLUME 10.8 fL (7.9-10.8); MONOCYTES # (AUTO) 0.9 10^3/uL (0.0-1.0); NEUTROPHILS # (AUTO) 6.9 10^3/uL (1.5-6.6); NEUTROPHILS % (AUTO) 64.1 %; PLT - PLATELET COUNT 377 10^3/uL (130-450); RED BLOOD COUNT 5.05 10^6/uL (4.20-5.40); RED CELL DISTRIBUTION WIDTH 18.2 % (12.0-15.0); WHITE BLOOD COUNT 10.8 x10^3/uL (4.8-10.8)
[2021-03-31 21:07] LABS: ALBUMIN 4.2 g/dL (3.2-5.5); ALBUMIN/GLOBULIN RATIO 1.3 (1.0-2.2); BILIRUBIN,TOTAL 0.5 mg/dL (0.2-1.0); CALCIUM 8.9 mg/dL (8.5-10.3); CREATININE 0.5 mg/dL (0.4-1.0); TOTAL PROTEIN 7.5 g/dL (6.7-8.2)
[2021-03-31 23:31] VITALS: BP 126/79
--- NOTE | 2021-03-31 23:41 | ED Physician Documentation ---
PD HPI FEMALE - Stated complaint Stated Complaint: BLEEDING,CRAMPING/OB - Chief complaint Chief Complaint: Abd Pain - History obtained from History obtained from: Patient - History of Present Illness Timing - onset: Today (vaginal bleeding) Timing - details: Abrupt onset (one episode of blood on toilet paper. + test last week, negative today) Pain level max: 4 Severity Comments: cramping constant lower abd pain, LLQ>RLQ Associated symptoms: Abdominal pain, Vaginal bleeding, Vaginal discharge. No: Fever, Back pain, Pelvic pain, Vaginal pain, Genital sore/lesion, Dysuria, Urinary frequency OB-RN PLASTICS History: G (13), P (0), Miscarriage(s) (13), Other (reports remote history of 6 days heavy uterine bleeding without surgical intervention or blood transfusion) Review of Systems Ten Systems: 10 systems reviewed and negative Constitutional: denies: Fever, Chills GI: reports: Abdominal Pain. denies: Nausea, Vomiting : reports: Vaginal bleeding, Missed period. denies: Dysuria Musculoskeletal: denies: Back pain PD PAST MEDICAL HISTORY - Past Medical History Past Medical History: No Cardiovascular: None Respiratory: None Neuro: None Endocrine/Autoimmune: None GI: None RN PLASTICS: None : None HEENT: None Psych: None Musculoskeletal: None Derm: None - Past Surgical History Past Surgical History: No - Present Medications Home Medications: Ambulatory Orders Medication Instructions Recorded Confirmed Benzonatate [Tessalon] 200 mg PO TID PRN #30 cap 03/23/21 Cetirizine HCl/Pseudoephedrine 1 each PO BID PRN #30 ea 03/23/21 [Zyrtec-D Tablet] Ibuprofen [Motrin] 800 mg PO Q8H PRN #30 tablet 03/23/21 - Allergies Allergies/Adverse Reactions: Allergies Allergy/AdvReac Type Severity Reaction Status Date / Time Bleach (Sodium Hypochlorite) Allergy Itching Verified 03/31/21 20:34 - Social History Does the pt smoke?: No Smoking Status: Never smoker Does the pt drink ETOH?: No Does the pt have substance abuse?: No - Immunizations Immunizations are current?: Yes - POLST Patient has POLST: No PD ED PE NORMAL - Vitals Vital signs reviewed: Yes - General General: Alert and oriented X 3, No acute distress, Well developed/nourished - HEENT HEENT: Atraumatic, PERRL, EOMI - Neck Neck: Supple, no meningeal sign - Cardiac Cardiac: RRR - Respiratory Respiratory: No respiratory distress, Clear bilaterally - Abdomen Abdomen: Non tender, Non distended, Other (discomfort to BLLQ palpation) - Back Back: No CVA TTP - Derm Derm: Normal color, Warm and dry - Extremities Extremities: No deformity - Neuro Neuro: Alert and oriented X 3 - Psych Psych: Normal mood, Other (intermittently tearful) Results - Vitals Vitals: Vital Signs - 24 hr 03/31/21 03/31/21 20:34 23:30 Temperature 36.5 C Heart Rate 90 67 Respiratory 16 18 Rate Blood Pressure 130/82 H 126/79 O2 Saturation 100 95 Oxygen O2 Source Room air - Labs Labs: Laboratory Tests 03/31/21 03/31/21 03/31/21 20:15 20:49 20:49 WBC 10.8 RBC 5.05 Hgb 11.0 L Hct 36.3 L MCV 71.9 L MCH 21.8 L MCHC 30.3 L RDW 18.2 H Plt Count 377 MPV 10.8 Neut # (Auto) 6.9 H Lymph # (Auto) 2.9 [place] # (Auto) 0.9 Eos # (Auto) 0.1 Baso # (Auto) 0.0 Absolute Nucleated RBC 0.00 Nucleated RBC % 0.0 Sodium 138 Potassium 4.0 Chloride 106 Carbon Dioxide 24 Anion Gap 8.0 BUN 12 Creatinine 0.5 Estimated GFR (MDRD) 154 Glucose 97 Calcium 8.9 Total Bilirubin 0.5 AST 13 ALT 14 Alkaline Phosphatase 81 Total Protein 7.5 Albumin 4.2 Globulin 3.3 Albumin/Globulin Ratio 1.3 Lipase 28 HCG, Quant Urine Color YELLOW Urine Clarity CLEAR Urine pH 6.0 Ur Specific [place] 1.025 Urine Protein NEGATIVE Urine Glucose (UA) NEGATIVE Urine Ketones NEGATIVE Urine Occult Blood NEGATIVE Urine Nitrite NEGATIVE Urine Bilirubin NEGATIVE Urine Urobilinogen 0.2 (NORMAL) Ur Leukocyte Esterase NEGATIVE Ur Microscopic Review NOT INDICATED Urine Culture Comments NOT INDICATED Blood Type Antibody Screen 03/31/21 03/31/21 20:49 22:19 WBC RBC Hgb Hct MCV MCH MCHC RDW Plt Count MPV Neut # (Auto) Lymph # (Auto) [place] # (Auto) Eos # (Auto) Baso # (Auto) Absolute Nucleated RBC Nucleated RBC % Sodium Potassium Chloride Carbon Dioxide Anion Gap BUN Creatinine Estimated GFR (MDRD) Glucose Calcium Total Bilirubin AST ALT Alkaline Phosphatase Total Protein Albumin Globulin Albumin/Globulin Ratio Lipase HCG, Quant 19.17 Urine Color Urine Clarity Urine pH Ur Specific [place] Urine Protein Urine Glucose (UA) Urine Ketones Urine Occult Blood Urine Nitrite Urine Bilirubin Urine Urobilinogen Ur Leukocyte Esterase Ur Microscopic Review Urine Culture Comments Blood Type O POSITIVE Antibody Screen NEGATIVE PD MEDICAL DECISION MAKING - ED course ED course: 20-year-old woman presents with mildly elevated hCG of 19.17, mild anemia hemoglobin 11. Patient had a positive home test a week ago vaginal spotting today. Transvaginal ultrasound does not show any retained products of conception and shows normal uterine and ovarian ultrasound. Rh+. She has a appointment with obstetrics and gynecology this Friday that she will keep to follow-up in regards to this. Strict return precautions given. Departure - Departure Clinical Impression: Elevated serum hCG, Vaginal bleeding, Anemia Condition: Good Instructions: ED Miscarriage Poss Comments: You were seen in the emergency department for evaluation of vaginal bleeding and possible . Your blood test shows a very slightly elevated hCG, but the test that is done when you get a test. It was 19.17, and the upper limit of normal for non woman is 5. This means that you may have had a miscarriage, and your hCG is now trending down. You also are mildly anemic, with a hemoglobin of 11. This is a measure of your red blood cells in the body. 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 Your blood type is O+. Please return if you have any new or worsening symptoms or other concerns.
--- NOTE | 2021-04-01 10:29 | Ultrasound Report ---
PROCEDURE: OB First Trimester w/TV INDICATIONS: vaginal bleeding, +HCG OUTSIDE/PRIOR DATING DATA: Last menstrual period (LMP): 02/28/2021. LMP-based estimated date of delivery (YNES): 12/05/2021. First dating scan (date and location): 03/31/2021. TECHNIQUE: Real-time scanning was performed of the fetus and maternal pelvic organs, with image documentation. Endovaginal scanning was also performed to better visualize the fetus and maternal ovaries. COMPARISON: None FINDINGS: Normal-appearing uterus with 9 mm endometrial thickness present. No uterine fibroids. No evidence of intrauterine . Right and left ovaries measure 3.3 x 1.8 x 2.1 cm and 3.1 x 1.8 x 1.7 cm respectively. Both ovaries h ave appropriate vascularity in echotexture without torsion. No adnexal mass. No free fluid. IMPRESSION: No evidence of intrauterine . Differential considerations include normal early , mi ssed and nonvisualized ectopic . Note: Final report is concordant with preliminary report provided by [facility] Reviewed by: Maxwell Perez MD on 04/01/2021 9:27 AM DARNELL Approved by: Maxwell Perez MD on 04/01/2021 9:27 AM DARNELL Station ID: [id number]
== END 2021-04-01 00:40 | disposition home or self-care (01) ==
LOC: ED 20:26
DX: N93.9 Abnormal uterine and vaginal bleeding, unspecified (principal); D64.9 Anemia, unspecified; R79.89 Other specified abnormal findings of blood chemistry
CPT/HCPCS: 36415; 80053; 81001; 81003; 83690; 84702; 85025; 86850; 86900; 86901; 87086; 99284

== ENCOUNTER 2021-04-03 14:29 | Outpatient (CLI) | payer MEDICAID | END 2021-04-03 14:30 | disposition critical access hospital (66) | LOC: EMS 14:29 | DX: O46.90 Antepartum hemorrhage, unspecified, unspecified trimester (principal); O99.891 Other specified diseases and conditions complicating pregnancy; R42 Dizziness and giddiness | CPT/HCPCS: A0425; A0427; A0999 ==

== ENCOUNTER 2021-04-03 14:53 | Emergency (ER) | payer MEDICAID ==
--- NOTE | 2021-04-03 15:01 | ED Physician Documentation ---
History of Present Illness - Stated complaint Stated Complaint: FEMALE / - Additonal information Additional information: 20-year-old female presents the emergency department for evaluation of severe vaginal bleeding. She reports that since noon 3 hours ago, she has been saturating 1-2 heavy flow menstrual pads each hour. She does report feeling somewhat lightheaded but no syncope. Denies chest pain or shortness of air. She reports that this is likely her 14 miscarriage. Last before this was in august 2020, which also resulted in a miscarriage LMP 02/27/2020 . She was seen in this emergency department on the for spotting and cramping in early . At that time her quant was only 19. Ultrasound did not reveal an IUP. Review of Systems Constitutional: reports: Fatigue. 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 HEENT: None Psych: None Musculoskeletal: None Derm: None - Past Surgical History Past Surgical History: No - Present Medications Home Medications: Ambulatory Orders Medication Instructions Recorded Confirmed Ibuprofen [Motrin] 800 mg PO Q8H PRN #30 tablet 03/23/21 04/03/21 HYDROcod/ACETAM 5/325 [[place] 5/325] 1 tablet PO BID PRN #10 tablet 04/03/21 - Allergies Allergies/Adverse Reactions: Allergies Allergy/AdvReac Type Severity Reaction Status Date / Time Bleach (Sodium Hypochlorite) Allergy Itching Verified 04/03/21 14:56 - Social History Does the pt smoke?: No Smoking Status: Never smoker Does the pt drink ETOH?: No Does the pt have substance abuse?: No - Immunizations Immunizations are current?: Yes - POLST Patient has POLST: No PD ED PE EXPANDED - General General: Alert, No acute distress, Well developed/nourished - Cardiac Cardiac: Regular Rate, Radial strong equal, Pedal strong equal, Cap refill < 2 sec. No: Murmur Present - Respiratory Respiratory: Clear to ausultation abdullahi. No: Distress, Labored - Abdomen Abdomen: Normal Bowel sounds. No: Tender to palpation - Extremities Extremities: Normal. No: Deformity, Tenderness - Neuro Neuro: Alert and Oriented X 3. No: Confused, Disoriented - GCS Eye Opening: Spontaneous Motor: Obeys Commands Verbal: Oriented Total: 15 Results - Vitals Vitals: Vital Signs - 24 hr 04/03/21 14:58 Temperature 36.8 C Heart Rate 83 Respiratory 18 Rate Blood Pressure 135/93 H O2 Saturation 94 Oxygen O2 Source Room air - Labs Labs: Laboratory Tests 04/03/21 04/03/21 04/03/21 15:08 15:08 15:08 WBC 9.9 RBC 5.25 Hgb 11.3 L Hct 38.0 MCV 72.4 L MCH 21.5 L MCHC 29.7 L RDW 18.5 H Plt Count 401 MPV 10.9 H Neut # (Auto) 6.6 Lymph # (Auto) 2.4 Bucks # (Auto) 0.8 Eos # (Auto) 0.1 Baso # (Auto) 0.0 Absolute Nucleated RBC 0.00 Nucleated RBC % 0.0 Sodium 137 Potassium 3.5 Chloride 105 Carbon Dioxide 22 Anion Gap 10.0 BUN 18 Creatinine 0.6 Estimated GFR (MDRD) 125 Glucose 95 Calcium 8.8 HCG, Quant 12.36 Blood Type Antibody Screen 04/03/21 15:08 WBC RBC Hgb Hct MCV MCH MCHC RDW Plt Count MPV Neut # (Auto) Lymph # (Auto) Bucks # (Auto) Eos # (Auto) Baso # (Auto) Absolute Nucleated RBC Nucleated RBC % Sodium Potassium Chloride Carbon Dioxide Anion Gap BUN Creatinine Estimated GFR (MDRD) Glucose Calcium HCG, Quant Blood Type O POSITIVE Antibody Screen NEGATIVE - Rads (name of study) pelvic US Radiology: Final report received, See rad report, Other (Per glass technologist no findings of an IUP, no ovarian torsion, no secondary findings of ectopic .) PD MEDICAL DECISION MAKING - ED course Complexity details: reviewed old records, reviewed results, re-evaluated patient, d/w patient, d/w family ED course: 20-year-old female presents to the emergency department for evaluation of heavy vaginal bleeding in the first trimester of . Seen for vaginal spotting 2 days ago. At that time had an hCG of only 19. And ultrasound did not show findings of an IUP. Today around noon she began having severe vaginal bleeding which she reported saturating 1-2 menstrual pads an hour for about 3 hours. Today her screening labs show an unchanged hemoglobin of 11.3. This is consistent with her baseline anemia with previous visits. Her hCG declined to 12 today. An ultrasound again does not show findings of an ectopic, it also does not show findings of intrauterine . Unfortunately with no findings of an IUP and a declining hormone level this is consistent with a miscarriage. On reevaluation the patient reported to me that her vaginal bleeding had slowed to a trickle. Given stable hemoglobin as well as vital signs she will be discharged home. We discussed that she can experience some vaginal spotting or period like bleeding for the next few days but for begins to become severe again she will return to the ER. She does have moderate lower abdominal pain and c carmening will prescribe a limited amount of [place]. I am prescribing a short course of short-acting opioid pain medication for this patient. I have reviewed the patients [employer] and no concerning findings were noted. I have discussed that the opioids are for short term therapy only, and will not be refilled from the ED. Departure - Departure Disposition: 01 Home, Self Care Clinical Impression: Miscarriage Condition: Stable Record reviewed to determine appropriate education?: Yes Instructions: Miscarriage Dc Prescriptions: HYDROcod/ACETAM 5/325 [[place] 5/325] 1 tablet PO BID PRN #10 tablet PRN Reason: Pain Comments: You were seen today in the emergency department for vaginal bleeding in the first trimester of . Unfortunately with a dropping hormone level as well as an ultrasound that does not show findings of the symptoms are consistent with an early miscarriage. It is important that you discuss with an disaster recovery specialist why you continue to have miscarriages so early in your . I would expect over the next few days that you continue to have some light spotting or bleeding that may be menstrual like. If you develop severe bleeding again such as saturating a pad an hour for 4 or more hours, feel lightheaded, faint or have any fainting episodes then please return immediately to the ER for a second look. I am prescribing a short course of narcotic pain medication for you. These are potentially dangerous and addictive medications that should be used carefully. These medications may constipate you. Take an xvcv-pik-pahffbz stool softener (docusate) twice daily with plenty of water while taking these medications. If you go 24 hours without a bowel movement, take prlz-rrx-urwwcob miralax, per package instructions. Do not drink or drive while taking these medications. If you received narcotic or sedating medications while in the emergency department, do not drive for 24 hours. Store this medication in a safe, secure place and out of reach of children. It is a violation of federal law to give or sell this medication to another person or to use in a manner other than prescribed. The ED will not refill narcotic prescriptions, including prescriptions lost or stolen. To dispose of unwanted medications: 1. [facility] at [address] in [place] has a medication drop box. They accept prescription medications (in pill form) Friday through Friday 9:00 a.m. to 5:00 p.m. 2. The [facility] accepts prescription medications (in pill form only) for disposal year round. Call for more information. 3. Contact the [facility] for the next [facility] sponsored prescription drug collection event. , [phone], or x7310; Note that many narcotic pain relievers also contain Tylenol/acetaminophen. Please ensure that your total dose of acetaminophen from all sources does not exceed 3 g (3000 mg) per day.
[2021-04-03 15:16] LABS: BASOPHILS % (AUTO) 0.4 %; EOSINOPHILS # (AUTO) 0.1 10^3/uL (0.0-0.7); EOSINOPHILS % (AUTO) 0.7 %; HGB - HEMOGLOBIN 11.3 g/dL (12.0-16.0); LYMPHOCYTES # (AUTO) 2.4 10^3/uL (1.5-3.5); LYMPHOCYTES % (AUTO) 24.2 %; MEAN CORPUSCULAR HEMOGLOBIN 21.5 pg (27.0-31.0); MEAN CORPUSCULAR HGB CONC 29.7 g/dL (32.0-36.0); MEAN CORPUSCULAR VOLUME 72.4 fL (81.0-99.0); MEAN PLATELET VOLUME 10.9 fL (7.9-10.8); MONOCYTES # (AUTO) 0.8 10^3/uL (0.0-1.0); MONOCYTES % (AUTO) 7.6 %; NEUTROPHILS # (AUTO) 6.6 10^3/uL (1.5-6.6); NEUTROPHILS % (AUTO) 66.9 %; PLT - PLATELET COUNT 401 10^3/uL (130-450); RED BLOOD COUNT 5.25 10^6/uL (4.20-5.40); RED CELL DISTRIBUTION WIDTH 18.5 % (12.0-15.0); WHITE BLOOD COUNT 9.9 x10^3/uL (4.8-10.8)
[2021-04-03 15:24] LABS: CALCIUM 8.8 mg/dL (8.5-10.3); CREATININE 0.6 mg/dL (0.4-1.0); POTASSIUM 3.5 mmol/L (3.5-5.0)
[2021-04-03 16:20] VITALS: BP 128/88
--- NOTE | 2021-04-03 16:44 | Ultrasound Report ---
PROCEDURE: Pelvic w/Transvag+Doppler Comp INDICATIONS: pelvic pain, R TECHNIQUE: Real-time scanning was performed of the pelvic organs, with image documentation. Additional endovagi nal scanning was necessary due to incomplete visualization of the adnexal and endometrial structures by transabdominal scanning. COMPARISON: US Pelvis 04/03/2019. CT Abdomen Pelvis 02/06/21. FINDINGS: No pathologic free abdominal or pelvic fluid. Uterus: Uterus is anteverted and measures 7.7 x 3.8 x 4.2 cm. The endometrium measures 0.6 cm in combined thickness. No gestational sac identified. There is a minimal endocervical fluid. Ovaries: The right ovary measures 4.1 x 2.4 x 2.7 cm and the left ovary measures 2.6 x 1.9 x 1.8 cm. No adnexal masses. There is patent arterial and venous flow demonstrated in the ovaries. IMPRESSION: 1. No evidence of ovarian torsion at this time. 2. No evidence of intrauterine . Reviewed by: Yuriy Lange MD on 04/03/2021 4:43 PM PDT Approved by: Yuriy Lange MD on 04/03/2021 4:43 PM PDT Station ID: [id number]
== END 2021-04-03 16:18 | disposition home or self-care (01) ==
LOC: EDUNIT# → ED 14:53
DX: O03.9 Complete or unspecified spontaneous abortion without complication (principal)
CPT/HCPCS: 36415; 80048; 84702; 85025; 86850; 86900; 86901; 93975; 99284

== ENCOUNTER 2021-05-10 02:01 | Emergency (ER) | payer MEDICAID ==
[2021-05-10] MEDS ORDERED: oxyCODONE 5 MG TABLET PO STA (02:35)
[2021-05-10] MEDS ORDERED: KETOROLAC 30 MG/ML VIAL IM STA (02:35)
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
[2021-05-10 03:28] VITALS: BP 122/71
--- NOTE | 2021-05-10 09:43 | XRAY Report ---
PROCEDURE: Knee 2 View RT INDICATIONS: knee pain s/p injury tonight TECHNIQUE: 2 views of the none knee(s) were acquired. COMPARISON: None. FINDINGS: Bones: No fractures or dislocations. No suspicious bony lesions. Soft tissues: No joint effusion. No suspicious soft tissue calcifications. IMPRESSION: No visualized acute fracture or dislocation. However, occult injury cannot be excluded. Recommend short interval imaging follow-up in 7-10 days as clinically indicated for additional evalua tion. The above findings are concordant with preliminary report. Reviewed by: Juana Chaney MD on 05/10/2021 9:41 AM PDT Approved by: Juana Chaney MD on 05/10/2021 9:41 AM PDT Station ID: [id number]
== END 2021-05-10 03:27 | disposition home or self-care (01) ==
LOC: ED 02:01
DX: S83.91XA Sprain of unspecified site of right knee, initial encounter (principal); W50.0XXA Accidental hit or strike by another person, initial encounter
CPT/HCPCS: 73560; 96372; 99283; A9270

== ENCOUNTER 2021-06-04 19:50 | Emergency (ER) | payer MEDICAID ==
[2021-06-04 21:09] LABS: BASOPHILS % (AUTO) 0.4 %; EOSINOPHILS # (AUTO) 0.1 10^3/uL (0.0-0.7); EOSINOPHILS % (AUTO) 1.4 %; HCT - HEMATOCRIT 39.7 % (37.0-47.0); HGB - HEMOGLOBIN 11.8 g/dL (12.0-16.0); LYMPHOCYTES # (AUTO) 2.3 10^3/uL (1.5-3.5); LYMPHOCYTES % (AUTO) 23.4 %; MEAN CORPUSCULAR HEMOGLOBIN 21.4 pg (27.0-31.0); MEAN CORPUSCULAR HGB CONC 29.7 g/dL (32.0-36.0); MEAN CORPUSCULAR VOLUME 71.9 fL (81.0-99.0); MEAN PLATELET VOLUME 10.3 fL (7.9-10.8); MONOCYTES # (AUTO) 0.8 10^3/uL (0.0-1.0); MONOCYTES % (AUTO) 7.9 %; NEUTROPHILS # (AUTO) 6.5 10^3/uL (1.5-6.6); NEUTROPHILS % (AUTO) 66.7 %; PLT - PLATELET COUNT 429 10^3/uL (130-450); RED BLOOD COUNT 5.52 10^6/uL (4.20-5.40); RED CELL DISTRIBUTION WIDTH 17.2 % (12.0-15.0); WHITE BLOOD COUNT 9.8 x10^3/uL (4.8-10.8)
[2021-06-04 21:23] LABS: CALCIUM 8.7 mg/dL (8.5-10.3); CREATININE 0.6 mg/dL (0.4-1.0); POTASSIUM 3.6 mmol/L (3.5-5.0)
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
[2021-06-04] MEDS ORDERED: KETOROLAC 30 MG/ML VIAL IM STA (22:01)
[2021-06-04] MEDS ORDERED: MAG HYDROX/AL HYDROX/SIMETH 30 ML UDC PO STA (22:02)
[2021-06-04] MEDS ORDERED: FAMOTIDINE 20 MG TABLET PO STA (22:02)
[2021-06-04] MEDS ORDERED: LIDOCAINE TOPICAL 4% 50 ML BOTTLE MM STA (22:02)
[2021-06-04] MEDS ORDERED: diphenhydrAMINE ELIXIR 25 MG/10 ML UDC PO STA (22:02)
--- NOTE | 2021-06-04 22:37 | XRAY Report ---
PROCEDURE: Chest 1 View X-Ray INDICATIONS: chest pain BL ribs during workouts TECHNIQUE: One view of the chest was acquired. COMPARISON: Chest radiograph 06/02/2019 FINDINGS: Surgical changes and devices: None. Lungs and pleura: No pleural effusions or pneumothorax. Lungs are clear. Mediastinum: Mediastinal contours appear normal. Heart size is normal. Bones and chest wall: No suspicious bony lesions. Overlying soft tissues appear unremarkable. IMPRESSION: No acute cardiopulmonary abnormality. Reviewed by: Claudio Dowd MD on 06/04/2021 10:36 PM PDT Approved by: Claudio Dowd MD on 06/04/2021 10:36 PM PDT Station ID: [id number]
[2021-06-04 22:50] LABS: BILIRUBIN,URINE NEGATIVE (NEGATIVE); GLUCOSE, URINE (UA) NEGATIVE (NEGATIVE); KETONES,URINE (UA) TRACE mg/dL (NEGATIVE); LEUKOCYTE ESTERASE, URINE NEGATIVE (NEGATIVE); NITRITE,URINE NEGATIVE (NEGATIVE); OCCULT BLOOD,URINE NEGATIVE (NEGATIVE); PROTEIN,URINE NEGATIVE (NEGATIVE); UROBILINOGEN,URINE 0.2 (NORMAL) E.U./dL (NORMAL)
[2021-06-04 22:51] LABS: CLARITY,URINE CLEAR (CLEAR); HCG UR QUAL NEGATIVE
[2021-06-04 23:06] VITALS: BP 110/60
== END 2021-06-04 23:05 | disposition home or self-care (01) ==
LOC: ED 19:50
DX: K31.89 Other diseases of stomach and duodenum (principal); R07.89 Other chest pain
CPT/HCPCS: 36415; 71045; 80048; 81003; 81025; 84702; 85025; 93005; 96372; 99284; A9270; 81001; 87086

== ENCOUNTER 2021-07-07 09:35 | Emergency (ER) | payer MEDICAID ==
[2021-07-07 09:43] VITALS: BP 144/79
--- NOTE | 2021-07-07 09:51 | ED Physician Documentation ---
PD HPI URI - Stated complaint Stated Complaint: CHEST PX - Chief complaint Chief Complaint: General - History obtained from History obtained from: Patient - History of Present Illness Timing - onset: How many days ago (5) Timing duration: Days (5) Timing details: Gradual onset, Still present (increased fevers and cough yesterday into today, with pains in ribs with coughing.) Associated symptoms: Chills, Nasal congestion, Sore throat, Dry cough. No: Fever, Productive cough, Hemoptysis Contributing factors: Sick contact (coworkers told her recent symptoms/Dx of COVID last week, and another Dx with rhinovirus. No improvement with mucinex type med.) Similar symptoms before: Has not had sx before Recently seen: Not recently seen Review of Systems Constitutional: reports: Chills, Myalgias. denies: Fever Nose: reports: Congestion Throat: reports: Sore throat Cardiac: reports: Chest pain / pressure. denies: Palpitations, Pedal edema Respiratory: reports: Dyspnea (mild with coughing), Cough. 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 : None HEENT: None Psych: None Musculoskeletal: None Derm: None - Past Surgical History Past Surgical History: No - Present Medications Home Medications: Ambulatory Orders Medication Instructions Recorded Confirmed Albuterol Sulf [Ventolin Hfa 1 - 2 puffs INH Q4HR PRN #1 inhaler 07/07/21 Inhaler] Benzonatate [Tessalon] 100 mg PO TID PRN #20 cap 07/07/21 Lidocaine Viscous 2% [Xylocaine 5 ml PO Q4H PRN #100 ml 07/07/21 Viscous 2%] dexAMETHasone [Decadron] 4 mg PO DAILY #5 tablet 07/07/21 - Allergies Allergies/Adverse Reactions: Allergies Allergy/AdvReac Type Severity Reaction Status Date / Time Bleach (Sodium Hypochlorite) Allergy Itching Verified 07/07/21 09:38 - Social History Does the pt smoke?: No Smoking Status: Never smoker Does the pt drink ETOH?: No Does the pt have substance abuse?: No - Immunizations Immunizations are current?: Yes - POLST Patient has POLST: No PD ED PE NORMAL - Vitals Vital signs reviewed: Yes - General General: Alert and oriented X 3, No acute distress, Well developed/nourished - HEENT HEENT: Ears normal, Moist mucous membranes, Pharynx benign - Neck Neck: Supple, no meningeal sign, No adenopathy - Cardiac Cardiac: RRR, No murmur - Respiratory Respiratory: Clear bilaterally (no noted wheezing nor coarse sounds. Guarded full breaths as induces coughing. ) - Abdomen Abdomen: Soft, Non tender - Derm Derm: Normal color, Warm and dry - Extremities Extremities: No edema, No calf tenderness / cord - Neuro Neuro: Alert and oriented X 3, No motor deficit, Normal speech Results - Vitals Vitals: Vital Signs - 24 hr 07/07/21 09:38 Temperature 36.9 C Heart Rate 84 Respiratory 18 Rate Blood Pressure 144/79 H O2 Saturation 100 Oxygen O2 Source Room air - EKG (time done) 09:44 Rate: Rate (enter#) (89) Rhythm: NSR [place]: Normal Intervals: Normal SD QRS: Normal Ischemia: Normal ST segments, T wave inversion (III only.). No: ST elevation c/w ischemia, ST depression - Rads (name of study) chest xray Radiology: Prelim report reviewed (no infiltrates nor PTX), See rad report PD MEDICAL DECISION MAKING - ED course Complexity details: considered differential, d/w patient, other (The patient had been in the . She is and getting . She had a healthcare power of patent prosecution attorney as recommended/required from the but would like to update it now to not include her been. I will have social work provide her with a new HC POA form. ) ED course: The patient also asked to fill out a DNR form. We provided her with a POLST form and I reviewed it with her. In particular she would like to have the portion of DO NOT INTUBATE given her current upper respiratory infection, should it become Covid and more severe she does not want to be on a breathing machine. Also she does not wish "heroic interventions" such as CPR. 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 We discussed range of potential interventions. She states she certainly would be okay with short-term airway control for surgery etc. but does not want to be "on a respirator prolonged nor in a vegetative state". I told her the importance of the healthcare power of patent prosecution attorney to also incorporate into her healthcare as most often or many times what sounds intervene able becomes more difficult in the POLST form emphasizes initial care and not ongoing changes. Departure - Departure Disposition: 01 Home, Self Care Clinical Impression: Upper respiratory infection Qualifiers: URI type: unspecified URI Qualified Code(s): J06.9 - Acute upper respiratory infection, unspecified Condition: Stable Record reviewed to determine appropriate education?: Yes Instructions: ED Upper Resp Infec No Abx Tx Prescriptions: Albuterol Sulf [Ventolin Hfa Inhaler] 1 - 2 puffs INH Q4HR PRN #1 inhaler PRN Reason: Shortness Of Air/Wheezing dexAMETHasone [Decadron] 4 mg PO DAILY #5 tablet Benzonatate [Tessalon] 100 mg PO TID PRN #20 cap PRN Reason: Cough Lidocaine Viscous 2% [Xylocaine Viscous 2%] 5 ml PO Q4H PRN #100 ml PRN Reason: Pain Comments: Your chest x-ray is clear without any signs of pneumonia. Presume a upper respiratory infection. Your Covid test should result in a day or 2 to evaluate for that. Other infections going around are rhinovirus and parainfluenza type infections (typical head cold and chest cold). You can use albuterol inhaler 2 puffs 4 times a day to help with breathing and cough. Decadron steroid daily for the next several days to decrease airway inflammation. Add benzonatate if needed for cough suppression. You can also use Benadryl combined with some lidocaine to help with sore throat and cough as well. Stay well-hydrated. Tylenol ibuprofen as needed for pains. I transmitted your prescriptions to [facility] pharmacy in [place]. You have a Covid test pending. You need to self quarantine until the result is done and negative. Do not leave your house. Do not get near anybody. The results should be done in 48 to 72 hours, but sometimes longer. We will call with a positive result, the fastest way to get a negative result for confirmation though is to go to the hospital website at [email or web address], click on the my [email or web address] tab and sign up for the patient portal. If any friends or family get sick and would like to have a Covid test done, but do not have signs or symptoms that would necessitate being hospitalized, we encourage testing throughone of the local pharmacies or the Health Department. Call them to schedule an appointment. The social and political studies professor should have supplied you with new forms for healthcare power of patent prosecution attorney and POLST. Forms: Activity restrictions
[2021-07-07] MEDS ORDERED: CHERRY SYRUP 10 ML UDC PO ONE (10:10)
[2021-07-07] MEDS ORDERED: BENZONATATE 100 MG CAPSULE PO STA (10:10)
[2021-07-07] MEDS ORDERED: DEXAMETHASONE 10 MG/ML VIAL PO STA (10:10)
[2021-07-07] MEDS ORDERED: ACETAMINOPHEN 325 MG TABLET PO STA (10:10)
[2021-07-07] MEDS ORDERED: diphenhydrAMINE ELIXIR 25 MG/10 ML UDC PO STA (10:10)
--- NOTE | 2021-07-07 10:36 | XRAY Report ---
PROCEDURE: Chest 1 View X-Ray INDICATIONS: chest pain/ cough TECHNIQUE: One view of the chest was acquired. COMPARISON: 06/04/2021, 06/02/2019 FINDINGS: Surgical changes and devices: None. Lungs and pleura: No pleural effusions or pneumothorax. Lungs are clear. Mediastinum: Mediastinal contours appear normal. Heart size is normal. Bones and chest wall: No suspicious bony lesions. Overlying soft tissues appear unremarkable. IMPRESSION: Portable chest within normal limits for age. Reviewed by: Eleuterio Iverson MD on 07/07/2021 9:35 AM [facility] Approved by: Eleuterio Iverson MD on 07/07/2021 9:35 AM [facility] Station ID: [id number]
== END 2021-07-07 11:40 | disposition home or self-care (01) ==
LOC: ED 09:35
DX: J06.9 Acute upper respiratory infection, unspecified (principal); Z20.822 Contact with and (suspected) exposure to COVID-19
CPT/HCPCS: 71045; 87635; 93005; 99283; 99284; A9270

== ENCOUNTER 2021-08-16 04:42 | Day surgery (SDC) | payer MEDICAID ==
[2021-08-16 05:04] LABS: BILIRUBIN,URINE NEGATIVE (NEGATIVE); GLUCOSE, URINE (UA) NEGATIVE (NEGATIVE); KETONES,URINE (UA) TRACE mg/dL (NEGATIVE); LEUKOCYTE ESTERASE, URINE NEGATIVE (NEGATIVE); NITRITE,URINE NEGATIVE (NEGATIVE); OCCULT BLOOD,URINE NEGATIVE (NEGATIVE); PROTEIN,URINE NEGATIVE (NEGATIVE); UROBILINOGEN,URINE 0.2 (NORMAL) E.U./dL (NORMAL)
[2021-08-16 05:18] LABS: BASOPHILS % (AUTO) 0.2 %; EOSINOPHILS % (AUTO) 0.1 %; HCT - HEMATOCRIT 37.9 % (37.0-47.0); HGB - HEMOGLOBIN 11.4 g/dL (12.0-16.0); LYMPHOCYTES # (AUTO) 1.5 10^3/uL (1.5-3.5); LYMPHOCYTES % (AUTO) 8.9 %; MEAN CORPUSCULAR HEMOGLOBIN 20.8 pg (27.0-31.0); MEAN CORPUSCULAR HGB CONC 30.1 g/dL (32.0-36.0); MEAN CORPUSCULAR VOLUME 69.3 fL (81.0-99.0); MEAN PLATELET VOLUME 11.1 fL (7.9-10.8); MONOCYTES # (AUTO) 0.8 10^3/uL (0.0-1.0); MONOCYTES % (AUTO) 4.8 %; NEUTROPHILS # (AUTO) 13.9 10^3/uL (1.5-6.6); NEUTROPHILS % (AUTO) 85.7 %; PLT - PLATELET COUNT 383 10^3/uL (130-450); RED BLOOD COUNT 5.47 10^6/uL (4.20-5.40); RED CELL DISTRIBUTION WIDTH 17.4 % (12.0-15.0); WHITE BLOOD COUNT 16.3 x10^3/uL (4.8-10.8)
[2021-08-16 05:29] LABS: ALBUMIN 4.3 g/dL (3.2-5.5); ALBUMIN/GLOBULIN RATIO 1.2 (1.0-2.2); BILIRUBIN,TOTAL 0.5 mg/dL (0.2-1.0); CALCIUM 8.9 mg/dL (8.5-10.3); CREATININE 0.6 mg/dL (0.4-1.0); POTASSIUM 3.9 mmol/L (3.5-5.0)
[2021-08-16 05:35] LABS: CLARITY,URINE CLEAR (CLEAR)
[2021-08-16 05:36] LABS: HCG UR QUAL NEGATIVE
[2021-08-16 05:37] LABS: SLIDE REVIEW? Indicated
[2021-08-16] MEDS ORDERED: SIMETHICONE CHEW 80 MG TABLET PO STA (05:37)
[2021-08-16] MEDS ORDERED: ONDANSETRON 4 MG/2 ML VIAL IVP STA (05:37)
[2021-08-16] MEDS ORDERED: KETOROLAC 15 MG/ML VIAL IVP STA (05:37)
[2021-08-16] MEDS ORDERED: SODIUM CHLORIDE 0.9% 1,000 ML IV STA ×2 (05:44→07:25)
--- NOTE | 2021-08-16 06:13 | ED Physician Documentation ---
History of Present Illness - Stated complaint Stated Complaint: ABD PX - Chief complaint Chief Complaint: Abd Pain - History obtained from History obtained from: Patient - Additonal information Additional information: 20yF p/w diffuse sharp, bloating abdominal pain intermittent over the past couple days, keeping her from sleeping early this morning. 9/10 severity, diffuse, nonradiating, improving with pressing on the abdomen. endorses normal brown stool this morning and one episode of nbnb emesis. denies diarrhea, urinary sx, possibility of . Review of Systems Ten Systems: 10 systems reviewed and negative Constitutional: denies: Fever, Chills GI: reports: Abdominal Pain, Nausea, Vomiting. 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: None : None HEENT: None Psych: None Musculoskeletal: None Derm: None - Past Surgical History Past Surgical History: No - Present Medications Home Medications: Ambulatory Orders Medication Instructions Recorded Confirmed Ondansetron Odt [Zofran Odt] 4 mg TL Q6H PRN #10 tablet 08/16/21 - Allergies Allergies/Adverse Reactions: Allergies Allergy/AdvReac Type Severity Reaction Status Date / Time Bleach (Sodium Hypochlorite) Allergy Itching Verified 08/16/21 04:53 - Social History Does the pt smoke?: No Smoking Status: Never smoker Does the pt drink ETOH?: No Does the pt have substance abuse?: No - Immunizations Immunizations are current?: Yes - POLST Patient has POLST: No PD ED PE NORMAL - Vitals Vital signs reviewed: Yes - General General: Alert and oriented X 3, Well developed/nourished, Other (mild to moderate distress) - HEENT HEENT: Atraumatic, PERRL, EOMI - Neck Neck: Supple, no meningeal sign - Cardiac Cardiac: RRR - Respiratory Respiratory: No respiratory distress, Clear bilaterally - Abdomen Abdomen: Non tender, Other (mildly distended abdomen. nontender to palpation) - Back Back: No CVA TTP - Derm Derm: Normal color, Warm and dry - Extremities Extremities: No deformity - Neuro Neuro: Alert and oriented X 3 - Psych Psych: Normal mood, Normal affect Results - Vitals Vitals: Vital Signs - 24 hr 08/16/21 08/16/21 04:45 06:36 Temperature 37.1 C Heart Rate 95 66 Respiratory 24 19 Rate Blood Pressure 142/82 H 105/61 O2 Saturation 98 98 Oxygen O2 Source Room air - Labs Labs: Laboratory Tests 08/16/21 08/16/21 08/16/21 04:52 04:52 04:56 WBC 16.3 H RBC 5.47 H Hgb 11.4 L Hct 37.9 MCV 69.3 L MCH 20.8 L MCHC 30.1 L RDW 17.4 H Plt Count 383 MPV 11.1 H Neut # (Auto) 13.9 H Lymph # (Auto) 1.5 Roberts # (Auto) 0.8 Eos # (Auto) 0.0 Baso # (Auto) 0.0 Absolute Nucleated RBC 0.00 Nucleated RBC % 0.0 Manual Slide Review Indicated Platelet Estimate NORMAL (130-450,000) RBC Morph Micro Appear 1+ OVALOCYTES Sodium Potassium Chloride Carbon Dioxide Anion Gap BUN Creatinine Estimated GFR (MDRD) Glucose Calcium Total Bilirubin AST ALT Alkaline Phosphatase Total Protein Albumin Globulin Albumin/Globulin Ratio Lipase Urine Color YELLOW Urine Clarity CLEAR Urine pH 6.0 Ur Specific [place] >=1.030 H Urine Protein NEGATIVE Urine Glucose (UA) NEGATIVE Urine Ketones TRACE Urine Occult Blood NEGATIVE Urine Nitrite NEGATIVE Urine Bilirubin NEGATIVE Urine Urobilinogen 0.2 (NORMAL) Ur Leukocyte Esterase NEGATIVE Ur Microscopic Review NOT INDICATED Urine Culture Comments NOT INDICATED Urine HCG, Qual NEGATIVE 08/16/21 04:56 WBC RBC Hgb Hct MCV MCH MCHC RDW Plt Count MPV Neut # (Auto) Lymph # (Auto) Roberts # (Auto) Eos # (Auto) Baso # (Auto) Absolute Nucleated RBC Nucleated RBC % Manual Slide Review Platelet Estimate RBC Morph Micro Appear Sodium 137 Potassium 3.9 Chloride 105 Carbon Dioxide 22 Anion Gap 10.0 BUN 17 Creatinine 0.6 Estimated GFR (MDRD) 125 Glucose 133 H Calcium 8.9 Total Bilirubin 0.5 AST 15 ALT 18 Alkaline Phosphatase 94 Total Protein 8.0 Albumin 4.3 Globulin 3.7 Albumin/Globulin Ratio 1.2 Lipase 25 Urine Color Urine Clarity Urine pH Ur Specific [place] Urine Protein Urine Glucose (UA) Urine Ketones Urine Occult Blood Urine Nitrite Urine Bilirubin Urine Urobilinogen Ur Leukocyte Esterase Ur Microscopic Review Urine Culture Comments Urine HCG, Qual PD MEDICAL DECISION MAKING - ED course ED course: 20yF p/w diffuse midabdominal pain. significant leukocytosis with WBC 16 on labwork. will plan to obtain CT to evaluate further. d/w Dr. Dahl - patient with appendicitis. will admit [facility] Departure - Departure Disposition: ED Transfer to [facility] Clinical Impression: Nausea and vomiting, Bloating, Abdominal pain, Appendicitis Condition: Stable Prescriptions: Ondansetron Odt [Zofran Odt] 4 mg TL Q6H PRN #10 tablet PRN Reason: Nausea / Vomiting
[2021-08-16 06:18] LABS: PLATELET ESTIMATE, MANUAL NORMAL (130-450,000) (NORMAL)
[2021-08-16] MEDS ORDERED: iohexoL-300 100 ML VIAL IVP ONE (06:32)
[2021-08-16] MEDS ORDERED: AMPICILLIN/SULBACTAM 3 GM in SODIUM CHLORIDE 0.9% MINIBAG 100 ML IV STA (07:21)
--- NOTE | 2021-08-16 08:12 | CT Report ---
PROCEDURE: Abdomen/Pelvis W INDICATIONS: leukocytosis, severe diffuse abd pain CONTRAST: IV CONTRAST: Isovue 300 ml: 100 PO CONTRAST: *NO PO CONTRAST TECHNIQUE: After the administration of intravenous contrast, 5 mm thick sections acquired from the diaphragms to the symphysis. 5 mm thick coronal and sagittal reformats were acquired. For radiation dose reducti on, the following was used: automated exposure control, adjustment of mA and/or kV according to erwin ent size. COMPARISON: CT 02/06/2021. FINDINGS: Image quality: Excellent. ABDOMEN: Lung bases: Lung bases are clear. Heart size is normal. Solid organs: Liver and spleen are normal in size and enhancement. Gallbladder appears normal. Kevin iary system is non dilated. Pancreas enhances normally. No adrenal nodules. Kidneys demonstrate no rmal size and enhancement, without hydronephrosis. Peritoneum and bowel: The appendix is dilated, measuring up to 11 mm in diameter on coronal images pr oximally, with enhancing bowser. Trace periappendiceal fat stranding is seen. No appendicolith is iden tified. The appendix is located adjacent to the cecal tip in the right lower quadrant. Bowel loops ot herwise appear normal. No signs of bowel obstruction. No pneumoperitoneum or abscess. Nodes and vessels: No retroperitoneal or mesenteric adenopathy by size criteria. Aorta and inferior vena cava are normal in size. Miscellaneous: No ventral hernias. PELVIS: Genitourinary: Bladder wall thickness is normal. Miscellaneous: No inguinal hernias or adenopathy. Bones: No suspicious bony lesions. No vertebral body compression fractures. There is mild scolioti c curvature of the included spine. IMPRESSION: Dilated and hyperenhancing appendix with trace periappendiceal fat stranding is suspicio us for acute appendicitis. No signs of perforation or abscess formation. There is no significant discrepancy when compared with the overnight teleradiology report. Reviewed by: Claudio Dowd MD on 08/16/2021 8:11 AM PST Approved by: Claudio Dowd MD on 08/16/2021 8:11 AM PST Station ID: [id number]
--- NOTE | 2021-08-16 08:19 | ANESTHESIA ---
Pre-Anesthesia VS, & Labs - Diagnosis appendecitis - Procedure lap appy Vital Signs: Temp Pulse Resp BP Pulse Ox 37.1 C 66 19 105/61 98 08/16/21 04:45 08/16/21 06:36 08/16/21 06:36 08/16/21 06:36 08/16/21 06:36 Height: 5 ft 1 in Weight (kg): 99.79 kg Body Mass Index: 41.5 BMI Classification: Morbidly Obese - NPO >8 hours - Is Patient ?: No - Lab Results Current Lab Results: Laboratory Tests 08/16/21 04:56: Sodium 137, Potassium 3.9, Chloride 105, Carbon Dioxide 22, Anion Gap 10.0, BUN 17, Creatinine 0.6, Estimated GFR (MDRD) 125, Glucose 133 H, Calcium 8.9, Total Bilirubin 0.5, AST 15, ALT 18, Alkaline Phosphatase 94, Total Protein 8.0, Albumin 4.3, Globulin 3.7, Albumin/Globulin Ratio 1.2, Lipase 25 08/16/21 04:56: WBC 16.3 H, RBC 5.47 H, Hgb 11.4 L, Hct 37.9, MCV 69.3 L, MCH 20.8 L, MCHC 30.1 L, RDW 17.4 H, Plt Count 383, MPV 11.1 H, Neut # (Auto) 13.9 H , Lymph # (Auto) 1.5, [place] # (Auto) 0.8, Eos # (Auto) 0.0, Baso # (Auto) 0.0, Absolute Nucleated RBC 0.00, Nucleated RBC % 0.0, Manual Slide Review Indicated, Platelet Estimate NORMAL (130-450,000), RBC Morph Micro Appear 1+ OVALOCYTES Lab results reviewed: Yes Fish Bones: 08/16/21 04:56 08/16/21 04:56 Home Medications and Allergies Active Medications Sodium Chloride (Normal Saline 0.9%) 1,000 mls @ 150 mls/hr IV .Q6H40M STA Stop: 08/16/21 14:04 Last Admin: 08/16/21 08:06 Dose: 150 mls/hr Documented by: Allergies/Adverse Reactions: Allergies Allergy/AdvReac Type Severity Reaction Status Date / Time Bleach (Sodium Hypochlorite) Allergy Itching Verified 08/16/21 04:53 Anes History & Medical History - Anesthetic History Anesthesia Complications: reports: No previous complications (never had anesthesia) Family history of Anesthesia Complications: Denies Family history of Malignant Hyperthermia: Denies - Medical History Cardiovascular: reports: None Pulmonary: reports: None Gastrointestinal: reports: None Urinary: reports: None Neuro: reports: None Musculoskeletal: reports: None Endocrine/Autoimmune: reports: None Blood Disorders: reports: None Skin: reports: None Smoking Status: Never smoker Exam General: Alert, Oriented x3, Cooperative, No acute distress Dental: WNL Mouth Openin Fingerbreadth Neck Mobility: Normal Mallampati classification: II Respiratory: Lungs clear, Normal breath sounds, No respiratory distress, No accessory muscle use Cardiovascular: Regular rate, Normal S1, Normal S2, No murmurs Plan Anesthesia Type: General Consent for Procedure(s) Verified and Reviewed: Yes Code Status: Attempt Resuscitation ASA classification: 3-Severe systemic disease Is this case an emergency?: No
[2021-08-16] MEDS ORDERED: ACETAMINOPHEN 325 MG TABLET PO PRN (09:17)
[2021-08-16] MEDS ORDERED: ONDANSETRON ODT 4 MG TABLET TL PRN (09:17)
[2021-08-16] MEDS ORDERED: SODIUM CHLORIDE FLUSH 0.9% 10 ML SYRINGE IVP PRN (09:17)
[2021-08-16] MEDS ORDERED: ONDANSETRON 4 MG/2 ML VIAL IVP PRN ×2 (09:17→14:44)
[2021-08-16 09:22] LABS: B. PARAPERTUSSIS- RESP PCR PAN NOT DETECTED; B. PERTUSSIS- RESP PCR PANEL NOT DETECTED; C. PNEUMONIAE- RESP PCR PANEL NOT DETECTED; CORONAVIRUS 229E-RESP PCR DETECTED; CORONAVIRUS HKU1-RESP PCR NOT DETECTED; CORONAVIRUS NL63-RESP PCR NOT DETECTED; CORONAVIRUS OC43-RESP PCR NOT DETECTED; HUMAN METAPNEUMOVIRUS NOT DETECTED; INFLUENZA A- RESP PCR PANEL NOT DETECTED; INFLUENZA B - RESP PCR PANEL NOT DETECTED; M. PNEUMONIAE- RESP PCR PANEL NOT DETECTED; PARAINFLUENZA VIRUS 1 NOT DETECTED; PARAINFLUENZA VIRUS 2 NOT DETECTED; PARAINFLUENZA VIRUS 3 NOT DETECTED; PARAINFLUENZA VIRUS 4 NOT DETECTED; RHINOVIRUS/ENTEROVIRUS NOT DETECTED; RSV- RESP PCR PANEL NOT DETECTED; SARS-CoV-2 -RESP PCR PANEL NOT DETECTED
[2021-08-16] MEDS ORDERED: LIDOCAINE MPF 2%-EPI 1:200000 20 ML VIAL ONE (09:48)
[2021-08-16] MEDS ORDERED: BUPIVACAINE 0.5% PF 10 ML VIAL ONE (09:48)
[2021-08-16] MEDS: LACTATED RINGERS 1,000 ML IV SCH ×2 (10:20→23:41)
[2021-08-16] MEDS: HYDROmorphone 0.5 MG/0.5 ML SYRINGE IVP PRN ×5 (10:20→22:08)
[2021-08-16] MEDS ORDERED: LIDOCAINE-MPF 2% 5 ML VIAL ONE (11:01)
[2021-08-16] MEDS ORDERED: ONDANSETRON 4 MG/2 ML VIAL ONE (11:01)
[2021-08-16] MEDS ORDERED: KETOROLAC 30 MG/ML VIAL ONE (11:01)
[2021-08-16] MEDS ORDERED: ROCURONIUM 50 MG/5 ML VIAL ONE ×2 (11:01→13:43)
[2021-08-16] MEDS ORDERED: PROPOFOL 200 MG/20 ML VIAL IVP ONE (11:01)
[2021-08-16] MEDS ORDERED: DEXAMETHASONE 4 MG/ML VIAL ONE (11:01)
[2021-08-16] MEDS ORDERED: fentaNYL 100 MCG/2 ML VIAL ONE (11:02)
[2021-08-16] MEDS ORDERED: MIDAZOLAM 2 MG/2 ML VIAL ONE (11:02)
[2021-08-16] MEDS: PIPERACILLIN/TAZOBACTAM 3.375 GM in SODIUM CHLORIDE 0.9% MINIBAG 100 ML IV SCH ×3 (12:22→22:49)
--- NOTE | 2021-08-16 12:39 | HISTORY & PHYSICAL EXAMINATION ---
Chief Complaint - Chief Complaint Chief Complaint: abdominal pain History of Present Illness - Admitted From Admitted From:: ed - History Obtained From Records Reviewed: yes History obtained from: pt Exam Limitations: none - History of Present Illness HPI Comment/Other: 2 days of abdominal pain, getting worse. wbc 16 ct scan appendicitis past ct scan several months ago thickened appendix without surrounding inflammation. 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 : reports: None HEENT: reports: None Psych: reports: None Musculoskeletal: reports: None Derm: reports: None MRSA Hx?: No - POLST Patient has POLST: No Meds/Allgy - Home Medications Home Medications: Ambulatory Orders Medication Instructions Recorded Confirmed Ondansetron Odt [Zofran Odt] 4 mg TL Q6H PRN #10 tablet 08/16/21 - Allergies Allergies/Adverse Reactions: Allergies Allergy/AdvReac Type Severity Reaction Status Date / Time Bleach (Sodium Hypochlorite) Allergy Itching Verified 08/16/21 04:53 Review of Systems - Constitutional Constitutional: reports: Poor appetite - Gastrointestinal Gastrointestinal: reports: Abdominal pain, Nausea, Vomiting (10 pt ros as above otherwise unremarkable) Exam - Vital Signs Reviewed Vital Signs: Yes Vital Signs: Vital Signs x48h Temp Pulse Resp BP Pulse Ox 08/16/21 11:00 36.9 C 72 14 111/78 99 08/16/21 09:20 36.7 C 68 16 98/67 100 08/16/21 06:36 66 19 105/61 98 08/16/21 04:45 37.1 C 95 24 142/82 H 98 - Physical Exam General Appearance: positive: No acute distress, Alert Eyes Bilateral: positive: PERRL, EOMI ENT: positive: No signs of dehydration Neck: positive: No JVD Respiratory: positive: No respiratory distress, Breath sounds nml Cardiovascular: positive: Regular rate & rhythm Abdomen: positive: No distention, Other (lower abdominal tenderness present) Neurologic/Psychiatric: positive: Oriented x3 Conclusion/Plan - Problem List (1) Appendicitis Conclusion/Plan: plan laparoscopic appendectomy. parq held and consent obtained - Lab Results Lab results reviewed: Yes Fish Bones: 08/16/21 04:56 08/16/21 04:56
[2021-08-16] MEDS ORDERED: LIDOCAINE MPF 2%-EPI 1:200000 20 ML VIAL SUBQ ONE (13:26)
[2021-08-16] MEDS ORDERED: BUPIVACAINE 0.5% PF 10 ML VIAL SUBQ ONE (13:28)
[2021-08-16] MEDS ORDERED: SUGAMMADEX 200 MG/2 ML VIAL IVP ONE (14:03)
--- NOTE | 2021-08-16 14:33 | OPERATIVE REPORT ---
Operative Report - General Procedure Date: 08/16/21 Planned Procedure: laparoscopic appendectomy Pre-Op Diagnosis: appendicitis Procedure Performed: laparoscopic appendectomy Post Op Diagnosis: appendicitis purulent - Procedure Note Primary Surgeon: rakesh garrison Anesthesia Technique: General ET tube, Local Pathology: appendix Estimated Blood Loss (mL): 25 Drain/Tube Type: Jamal Harper drain Indications: appendicitis Findings: non ruptured appendicitis 50 ml pus in abdomen and pelvis pictures ovaries and uterus taken given history chronic pelvic pain Complications: none - Other Other Information/Narrative: The patient was properly identified brought to the operating room and placed in supine position. The patient was previously given antibiotics. Sequential compression devices were placed. General endotracheal anesthesia was induced. The patient was prepped and draped in a sterile fashion. Local anesthetic was given to incision areas. An infraumbilical incision was made in and proceeded down to the fascia. The fascia was incised lifted upwards and abdomen entered with a Veress needle. CO2 was insufflated to a pressure of 15. A 12 mm trocar was placed with 30 degree scope. There was no evidence of injury from Veress needle or trocar placement. Under direct vision a 5 mm trocar was placed suprapubic and a 5 mm trocar was placed in the right upper quadrant. Appendix was identified and retracted anteriorly. Peritoneal attachments were taken down with careful use of cautery. Appendix was mobilized more anterior. A plane was then created between the mesoappendix and the appendix at the cecum. Appendix was divided with an Endo ROSALINDA intestinal load to include up a small portion of the cecum. The mesoappendix was then divided with an Endo ROSALINDA vascular load. There was bleeding at the staple line. 3 10 mm clips were placed. There was secure closure at the cecum and hemostasis was assured. The appendix was brought out. The abdomen was thoroughly irrigated and hemostasis again assured. 50 ml purulent fluid present in the abdomen and pelvis at the start of the procedure. A 10 flat boris was placed and brought out suprpubic site and secured with a 3 O nylon. Trochars were removed under direct vision. Fascia at the infraumbilical site was closed with a running 0 Vicryl suture. Subcutaneous tissue was irrigated and skin reapproximated with buried interrupted 4-0 Monocryl. Dressings were applied. The patient tolerated the procedure well was awakened and brought to recovery in good condition.
[2021-08-16] MEDS ORDERED: LACTATED RINGERS 1,000 ML IV ONE (14:38)
[2021-08-16] MEDS ORDERED: ePHEDrine 50 MG/ML VIAL IVP PRN (14:44)
[2021-08-16] MEDS ORDERED: NALOXONE 0.4 MG/ML VIAL IVP PRN (14:44)
[2021-08-16] MEDS ORDERED: fentaNYL 100 MCG/2 ML VIAL IVP PRN (14:44)
[2021-08-16] MEDS ORDERED: ATROPINE ABBOJECT 1 MG/10 ML SYRINGE IVP PRN (14:44)
[2021-08-16] MEDS ORDERED: METOCLOPRAMIDE 10 MG/2 ML VIAL IVP PRN (14:44)
[2021-08-16] MEDS ORDERED: MORPHINE 2 MG/ML CARPUJECT IVP PRN (14:44)
[2021-08-16] MEDS ORDERED: LACTATED RINGERS 1,000 ML IV SCH (15:00)
[2021-08-16] MEDS ORDERED: HYDROmorphone 1 MG/ML CARPUJECT ONE (15:15)
--- NOTE | 2021-08-16 15:55 | ANESTHESIA POST OP EVALUATION ---
Anesthesia Post Eval - Post Anesthesia Eval Vitals: Last Vital Signs Temp 36.9 C 08/16/21 15:30 Pulse 88 08/16/21 15:30 Resp 21 08/16/21 15:30 BP 129/83 H 08/16/21 15:30 Pulse Ox 95 08/16/21 15:30 CV Function Including HR & BP: Stable Pain Control: Satisfactory Nausea & Vomiting: Negative Mental Status: Baseline Respiratory Status: Airway Patent Hydration Status: Satisfactory Anesthesia Complications: None
[2021-08-16] MEDS: HYDROcod/ACETAM 5/325 MG TABLET PO PRN ×2 (17:00→21:23)
[2021-08-16] MEDS: SODIUM CHLORIDE FLUSH 0.9% 10 ML SYRINGE IVP SCH (17:01)
[2021-08-17] MEDS: HYDROmorphone 0.5 MG/0.5 ML SYRINGE IVP PRN ×5 (00:19→12:16)
[2021-08-17] MEDS: SODIUM CHLORIDE FLUSH 0.9% 10 ML SYRINGE IVP SCH ×2 (00:20→08:47)
[2021-08-17] MEDS: HYDROcod/ACETAM 5/325 MG TABLET PO PRN ×2 (04:18→11:05)
[2021-08-17] MEDS: PIPERACILLIN/TAZOBACTAM 3.375 GM in SODIUM CHLORIDE 0.9% MINIBAG 100 ML IV SCH ×2 (04:19→11:04)
[2021-08-17] MEDS: LACTATED RINGERS 1,000 ML IV SCH (09:43)
--- NOTE | 2021-08-17 11:26 | Discharge Plan ---
Discharge Plan Problem Reviewed?: Yes Disposition: Home, Self Care Condition: Good Prescriptions: Ondansetron Odt [Zofran Odt] 4 mg TL Q6H PRN #10 tablet PRN Reason: Nausea / Vomiting Diet: Regular (diet as tolerated. light diet for a few days and slowly advance) Activity Restrictions: No Restrictions Shower Restrictions: Yes (keep incision areas dry for 2 days after surgery) Driving Restrictions: Yes (no driving while taking prescription pain pills) Health Concerns: none other than recent appendicitis and surgery Plan of Treatment: iv antibiotics and surgery for appendicitis Assessment: doing well after surgery Additional Instructions or Follow Up instructions: call for fever over 101, incision area redness, continued nausea and vomiting. call the office friday and make a follow up appointment for friday. plan drain removal friday [phone] No Smoking: If you smoke, Please STOP! Call for help. Follow-up with: Don Dahl MD [Provider Admit Priv/Credential] -
--- NOTE | 2021-08-17 11:33 | DISCHARGE SUMMARY ---
"Discharge Summary Admit Date: 08/16/21 Discharge Date: 08/17/21 Discharging Provider: rakesh garrison md Code Status: Attempt Resuscitation Condition at Discharge: Good Discharge Disposition: Home, Self Care Discharge Facility Name: [facility] - DIAGNOSES Admission Diagnoses: appendicitis Discharge Diagnoses with Status of Each Condition: home in good condition, tolerating clears, afebrile - HPI History of Present Illness: 2 days of abdominal pain n/v. Work up wbc [address] scan appendicitis Surgery 08/16/2021 - CONSULTS | PROCEDURES Procedures: laparoscopic appendectomy 08/16/2021 - HOSPITAL COURSE Hospital Course: doing well after surgery. tolerating clears. normal postop exam. afebrile. - ALLERGIES Allergies/Adverse Reactions: Allergies Allergy/AdvReac Type Severity Reaction Status Date / Time Bleach (Sodium Hypochlorite) Allergy Itching Verified 08/16/21 04:53 - MEDICATIONS Home Medications: Ambulatory Orders Medication Instructions Recorded Confirmed Ondansetron Odt [Zofran Odt] 4 mg TL Q6H PRN #10 tablet 08/16/21 HYDROcod/ACETAM 5/325 [[place] 5/325] 1 each PO Q4HR PRN #35 tablet 08/17/21 Ondansetron Odt [Zofran Odt] 4 mg PO Q6H PRN #15 tablet 08/17/21 - PHYSICAL EXAM AT DISCHARGE General Appearance: positive: No acute distress, Alert Eyes Bilateral: positive: PERRL, EOMI ENT: positive: No signs of dehydration Neck: positive: No JVD Respiratory: positive: No respiratory distress Abdomen: positive: Non-tender, No distention, Other (boris scant serosanguinous) Neurologic/Psychiatric: positive: Oriented x3 - LABS Result Diagrams: 08/16/21 04:56 08/16/21 04:56 - DIAGNOSTIC IMAGING Diagnostic Imaging Results: Read independently - FOLLOW UP Follow Up: surgery office friday. please call friday to make an appointment [phone]"
[2021-08-17 12:09] VITALS: BP 123/48
== END 2021-08-17 12:32 | disposition home or self-care (01) ==
LOC: ED 04:42 → SDS 09:17 → MS2 15:37 → SDS 08-17 12:32
PROVIDERS: ATTEND Surgery
PROC: 0DTJ4ZZ Resection of Appendix, Percutaneous Endoscopic Approach (ICD-10-PCS; principal; 2021-08-16 12:00)
DX: K35.80 Unspecified acute appendicitis (principal); G89.29 Other chronic pain; R10.2 Pelvic and perineal pain; E66.01 Morbid (severe) obesity due to excess calories; Z20.822 Contact with and (suspected) exposure to COVID-19; Z32.02 Encounter for pregnancy test, result negative; Z68.41 Body mass index [BMI] 40.0-44.9, adult
CPT/HCPCS: 0202U; 36415; 44970; 74177; 80053; 81003; 81025; 83690; 85025; 86850; 86900; 86901; 96365; 96375; 99284; 99285; A9270; J1170; J7120; Q9967; 81001; 87086

== ENCOUNTER 2021-08-18 02:00 | Emergency (ER) | payer MEDICAID ==
--- NOTE | 2021-08-18 02:43 | ED Physician Documentation ---
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 No: Fever, Vomiting Recently seen: Surgery - Additional information Additional information: patient underwent laparoscopic appendectomy 2 days ago. Tonight she sat down on toilet and accidentally sat on the SAÚL drain, causing it to pull traction from insertion site. this caused sudden severe pain; she says the sudden pain caused her to reflexively move her arms in such a way that her elbow struck her abdomen, further exacerbating the sudden abdominal pain. Review of Systems Constitutional: reports: Reviewed and negative GI: reports: Abdominal Pain, Nausea. 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 : None HEENT: None Psych: None Musculoskeletal: None Derm: None Other Past Medical History: Appendicitis - Past Surgical History Past Surgical History: Yes General: Appendectomy - Present Medications Home Medications: Ambulatory Orders Medication Instructions Recorded Confirmed Ondansetron Odt [Zofran Odt] 4 mg TL Q6H PRN #10 tablet 08/16/21 HYDROcod/ACETAM 5/325 [[place] 5/325] 1 each PO Q4HR PRN #35 tablet 08/17/21 Ondansetron Odt [Zofran Odt] 4 mg PO Q6H PRN #15 tablet 08/17/21 oxyCODONE [Roxicodone] 5 - 10 mg PO Q6H PRN #14 tablet 08/18/21 - Allergies Allergies/Adverse Reactions: Allergies Allergy/AdvReac Type Severity Reaction Status Date / Time Bleach (Sodium Hypochlorite) Allergy Itching Verified 08/18/21 02:15 - Social History Does the pt smoke?: No Smoking Status: Never smoker Does the pt drink ETOH?: No Does the pt have substance abuse?: No - Immunizations Immunizations are current?: Yes - POLST Patient has POLST: No PD ED PE NORMAL - Vitals Vital signs reviewed: Yes - General General: Alert and oriented X 3, Well developed/nourished, Other (appears to be in painful distress with movement) - HEENT HEENT: Moist mucous membranes - Cardiac Cardiac: RRR, No murmur - Respiratory Respiratory: No respiratory distress, Clear bilaterally - Abdomen Abdomen: Soft, Non distended, Other (diffuse TTP. SAÚL drain in place with scant serosanguinous drainage in tubing and bulb. the SAÚL insertion site is intact and without bleeding or dislodgement of the drain. ) Results - Vitals Vitals: Vital Signs - 24 hr 08/18/21 08/18/21 08/18/21 02:11 02:15 03:28 Temperature 36.8 C 36.8 C Heart Rate 87 87 65 Respiratory 22 22 17 Rate Blood Pressure 133/62 H 133/62 H 111/66 O2 Saturation 97 97 99 08/18/21 08/18/21 03:41 05:04 Temperature 37.2 C Heart Rate 61 68 Respiratory 15 20 Rate Blood Pressure 117/68 O2 Saturation 99 97 Oxygen O2 Source Room air - Labs Labs: Laboratory Tests 08/18/21 03:00 WBC 9.6 RBC 5.06 Hgb 10.5 L Hct 35.6 L MCV 70.4 L MCH 20.8 L MCHC 29.5 L RDW 17.6 H Plt Count 367 MPV 12.1 H Neut # (Auto) 5.1 Lymph # (Auto) 3.3 [place] # (Auto) 1.0 Eos # (Auto) 0.1 Baso # (Auto) 0.0 Absolute Nucleated RBC 0.00 Nucleated RBC % 0.0 PD MEDICAL DECISION MAKING - ED course Complexity details: reviewed old records, reviewed results, re-evaluated patient, considered differential, d/w patient ED course: Patient had laparoscopic appendectomy 2 days ago, presents due to sudden severe abdominal pain from accidental traction on SAÚL drain and reflexively striking herself in the abdomen. She is given IV dilaudid and zofran and on reevaluation she is in NAD, able to stand at bedside. I discussed the case with Dr. Dahl after I initially evaluated her to discuss whether CT scan would be warranted based on the HPI and exam in light of her recent procedure; he does not feel CT scan is indicated at this time but does recommend CBC and requests call back if WBC is at/above 20K. He also recommends dose of toradol in addition to the dilaudid and zofran I had already ordered. WBC is normal. On reevaluation, she says she still has significant pain and says the prescribed hydrocodone was not providing adequate, lasting relief. She is given a second dose of 1mg IV dilaudid as well as 1mg PO lorazepam (to augment the effect of the dilaudid), and I will transmit rx for oxycodone to her pharmacy ([facility]) to be used in place of the vicodin (perhaps will have superior analgesic effect but I explained to her to use one or the other of these medications, and to switch back to the vicodin if she finds the oxycodone is not more effective). I am prescribing a short course of short-acting opioid pain medication for this patient. 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 I have discussed that the opioids are for short term therapy only, and will not be refilled from the ED Departure - Departure Disposition: Home, Self Care Clinical Impression: Post-operative pain Condition: Good Instructions: ED Post Op Pain Follow-Up: Don Dahl MD [Provider Admit Priv/Credential] - (Friday as scheduled) Prescriptions: oxyCODONE [Roxicodone] 5 - 10 mg PO Q6H PRN #14 tablet PRN Reason: Pain Comments: A prescription for oxycodone has been electronically submitted to [facility] pharmacy in [place]. As we discussed, this medication often provides stronger pain relief than hydrocodone. You can use the oxycodone in place of the hydrocodone; do not take both of these medications. If you find that the hydrocodone was more effective, you can switch back to it 6 hours after the oxycodone. I am prescribing a short course of narcotic pain medication for you. These are potentially dangerous and addictive medications that should be used carefully. These medications may constipate you. Take an kphk-lce-orkyrvs stool softener (docusate) twice daily with plenty of water while taking these medications. If you go 24 hours without a bowel movement, take jzea-[id number] miralax, per package instructions. Do not drink or drive while taking these medications. If you received narcotic or sedating medications while in the emergency department, do not drive for 24 hours. Store this medication in a safe, secure place and out of reach of children. It is a violation of federal law to give or sell this medication to another person or to use in a manner other than prescribed. The ED will not refill narcotic prescriptions, including prescriptions lost or stolen. To dispose of unwanted medications: 1. [facility] at [address] in [place] has a medication drop box. They accept prescription medications (in pill form) Friday through Friday 9:00 a.m. to 5:00 p.m. 2. [facility] [employer] accepts prescription medications (in pill form only) for disposal year round. Call for more information. 3. Contact the [facility] for the next [facility] sponsored prescription drug collection event. , [phone], or [phone]; Discharge Date/Time: 08/18/21 05:10
[2021-08-18] MEDS ORDERED: HYDROmorphone 1 MG/ML CARPUJECT IVP STA ×2 (02:56→04:34)
[2021-08-18] MEDS ORDERED: ONDANSETRON 4 MG/2 ML VIAL IVP STA (02:57)
[2021-08-18] MEDS ORDERED: KETOROLAC 30 MG/ML VIAL IVP STA (02:58)
[2021-08-18 03:58] LABS: BASOPHILS % (AUTO) 0.3 %; EOSINOPHILS # (AUTO) 0.1 10^3/uL (0.0-0.7); EOSINOPHILS % (AUTO) 1.5 %; HCT - HEMATOCRIT 35.6 % (37.0-47.0); HGB - HEMOGLOBIN 10.5 g/dL (12.0-16.0); LYMPHOCYTES # (AUTO) 3.3 10^3/uL (1.5-3.5); LYMPHOCYTES % (AUTO) 34.6 %; MEAN CORPUSCULAR HEMOGLOBIN 20.8 pg (27.0-31.0); MEAN CORPUSCULAR HGB CONC 29.5 g/dL (32.0-36.0); MEAN CORPUSCULAR VOLUME 70.4 fL (81.0-99.0); MEAN PLATELET VOLUME 12.1 fL (7.9-10.8); MONOCYTES % (AUTO) 9.9 %; NEUTROPHILS # (AUTO) 5.1 10^3/uL (1.5-6.6); NEUTROPHILS % (AUTO) 53.4 %; PLT - PLATELET COUNT 367 10^3/uL (130-450); RED BLOOD COUNT 5.06 10^6/uL (4.20-5.40); RED CELL DISTRIBUTION WIDTH 17.6 % (12.0-15.0); WHITE BLOOD COUNT 9.6 x10^3/uL (4.8-10.8)
[2021-08-18] MEDS ORDERED: LORazepam 0.5 MG TABLET PO STA (04:34)
[2021-08-18 05:08] VITALS: BP 117/68
== END 2021-08-18 05:10 | disposition home or self-care (01) ==
LOC: ED 02:00
DX: T85.848A Pain due to other internal prosthetic devices, implants and grafts, initial encounter (principal); Y82.8 Other medical devices associated with adverse incidents
CPT/HCPCS: 36415; 85025; 96374; 96375; 99283; 99284; A9270; J1170

== ENCOUNTER 2021-08-31 13:05 | Emergency (ER) | payer MEDICAID ==
[2021-08-31 13:35] LABS: BILIRUBIN,URINE NEGATIVE (NEGATIVE); GLUCOSE, URINE (UA) NEGATIVE (NEGATIVE); KETONES,URINE (UA) NEGATIVE (NEGATIVE); LEUKOCYTE ESTERASE, URINE NEGATIVE (NEGATIVE); NITRITE,URINE NEGATIVE (NEGATIVE); OCCULT BLOOD,URINE NEGATIVE (NEGATIVE); PROTEIN,URINE NEGATIVE (NEGATIVE); UROBILINOGEN,URINE 0.2 (NORMAL) E.U./dL (NORMAL)
[2021-08-31 13:37] LABS: CLARITY,URINE CLEAR (CLEAR); HCG UR QUAL NEGATIVE
[2021-08-31 13:38] LABS: BASOPHILS % (AUTO) 0.4 %; EOSINOPHILS # (AUTO) 0.2 10^3/uL (0.0-0.7); EOSINOPHILS % (AUTO) 2.1 %; HCT - HEMATOCRIT 35.2 % (37.0-47.0); HGB - HEMOGLOBIN 10.6 g/dL (12.0-16.0); LYMPHOCYTES # (AUTO) 2.7 10^3/uL (1.5-3.5); MEAN CORPUSCULAR HEMOGLOBIN 21.1 pg (27.0-31.0); MEAN CORPUSCULAR HGB CONC 30.1 g/dL (32.0-36.0); MEAN CORPUSCULAR VOLUME 70.1 fL (81.0-99.0); MEAN PLATELET VOLUME 10.6 fL (7.9-10.8); MONOCYTES # (AUTO) 0.8 10^3/uL (0.0-1.0); MONOCYTES % (AUTO) 10.5 %; NEUTROPHILS # (AUTO) 3.9 10^3/uL (1.5-6.6); NEUTROPHILS % (AUTO) 50.7 %; PLT - PLATELET COUNT 416 10^3/uL (130-450); RED BLOOD COUNT 5.02 10^6/uL (4.20-5.40); RED CELL DISTRIBUTION WIDTH 17.3 % (12.0-15.0); WHITE BLOOD COUNT 7.6 x10^3/uL (4.8-10.8)
[2021-08-31 13:50] LABS: ALBUMIN/GLOBULIN RATIO 1.1 (1.0-2.2); BILIRUBIN,TOTAL 0.3 mg/dL (0.2-1.0); CALCIUM 8.6 mg/dL (8.5-10.3); CREATININE 0.6 mg/dL (0.4-1.0); POTASSIUM 3.5 mmol/L (3.5-5.0); TOTAL PROTEIN 7.5 g/dL (6.7-8.2)
[2021-08-31 14:35] VITALS: BP 108/73
[2021-08-31] MEDS ORDERED: HYDROmorphone 1 MG/ML CARPUJECT IVP STA (14:47)
[2021-08-31] MEDS ORDERED: ONDANSETRON 4 MG/2 ML VIAL IVP STA (14:47)
[2021-08-31] MEDS ORDERED: SODIUM CHLORIDE 0.9% 1,000 ML IV STA (14:49)
--- NOTE | 2021-08-31 14:52 | ED Physician Documentation ---
History of Present Illness - Stated complaint Stated Complaint: NAUSEA,FEVER,INCISION PX,POST SURGERY - Chief complaint Chief Complaint: Abd Pain - Additonal information Additional information: 21-year-old female presents the emergency department for evaluation of 2 days periumbilical pain. She underwent a appendectomy on 14 August. She did have a SAÚL drain postoperatively which was removed in clinic. She had been doing well until 2 days ago when she developed sharp ousb-rba-mqqhewx sensation in her periumbilical area. Some nausea and vomiting. No fevers. She is passing gas. Review of Systems Constitutional: denies: Fever Eyes: reports: Reviewed and negative Ears: reports: Reviewed and negative Nose: reports: Reviewed and negative Throat: reports: Reviewed and negative Cardiac: reports: Reviewed and negative Respiratory: reports: Reviewed and negative GI: reports: Abdominal Pain : reports: Reviewed and negative Skin: reports: Reviewed and negative Musculoskeletal: reports: Reviewed and negative PD PAST MEDICAL HISTORY - Past Medical History Cardiovascular: None Respiratory: None Neuro: None Endocrine/Autoimmune: None GI: Other PAGINATOR: None : None HEENT: None Psych: None Musculoskeletal: None Derm: None - Past Surgical History Past Surgical History: Yes General: Appendectomy - Present Medications Home Medications: Ambulatory Orders Medication Instructions Recorded Confirmed Ondansetron Odt [Zofran Odt] 4 mg TL Q6H PRN #10 tablet 08/16/21 HYDROcod/ACETAM 5/325 [[place] 5/325] 1 each PO Q4HR PRN #35 tablet 08/17/21 Ondansetron Odt [Zofran Odt] 4 mg PO Q6H PRN #15 tablet 08/17/21 oxyCODONE [Roxicodone] 5 - 10 mg PO Q6H PRN #14 tablet 08/18/21 - Allergies Allergies/Adverse Reactions: Allergies Allergy/AdvReac Type Severity Reaction Status Date / Time Bleach (Sodium Hypochlorite) Allergy Itching Verified 08/31/21 13:14 - Social History Does the pt smoke?: No Smoking Status: Never smoker Does the pt drink ETOH?: No Does the pt have substance abuse?: No - Immunizations Immunizations are current?: Yes - POLST Patient has POLST: No PD ED PE EXPANDED - General General: Alert, In Pain - Cardiac Cardiac: Regular Rate, Radial strong equal, Pedal strong equal, Cap refill < 2 sec. No: Murmur Present - Respiratory Respiratory: Clear to ausultation abdullahi. No: Distress, Labored - Abdomen Abdomen: Normal Bowel sounds, Tender to palpation (periumbilical tenderness without guarding or rebound. Surgical incision sites are clean dry and intact without drainage.) - Back Back: Normal exam - Neuro Neuro: Alert and Oriented X 3, CNII-XII intact - GCS Eye Opening: Spontaneous Motor: Obeys Commands Verbal: Oriented Total: 15 Results - Vitals Vitals: Vital Signs - 24 hr 08/31/21 08/31/21 13:10 14:34 Temperature 36.4 C L Heart Rate 81 76 Respiratory 16 16 Rate Blood Pressure 141/89 H 108/73 O2 Saturation 99 99 Oxygen O2 Source Room air - Labs Labs: Laboratory Tests 08/31/21 08/31/21 08/31/21 13:24 13:34 13:34 WBC 7.6 RBC 5.02 Hgb 10.6 L Hct 35.2 L MCV 70.1 L MCH 21.1 L MCHC 30.1 L RDW 17.3 H Plt Count 416 MPV 10.6 Neut # (Auto) 3.9 Lymph # (Auto) 2.7 [place] # (Auto) 0.8 Eos # (Auto) 0.2 Baso # (Auto) 0.0 Absolute Nucleated RBC 0.00 Nucleated RBC % 0.0 Sodium 139 Potassium 3.5 Chloride 105 Carbon Dioxide 24 Anion Gap 10.0 BUN 14 Creatinine 0.6 Estimated GFR (MDRD) 124 Glucose 93 Calcium 8.6 Total Bilirubin 0.3 AST 15 ALT 15 Alkaline Phosphatase 104 Total Protein 7.5 Albumin 4.0 Globulin 3.5 Albumin/Globulin Ratio 1.1 Lipase 27 Urine Color YELLOW Urine Clarity CLEAR Urine pH 6.0 Ur Specific [place] 1.025 Urine Protein NEGATIVE Urine Glucose (UA) NEGATIVE Urine Ketones NEGATIVE Urine Occult Blood NEGATIVE Urine Nitrite NEGATIVE Urine Bilirubin NEGATIVE Urine Urobilinogen 0.2 (NORMAL) Ur Leukocyte Esterase NEGATIVE Ur Microscopic Review NOT INDICATED Urine Culture Comments NOT INDICATED Urine HCG, Qual NEGATIVE - Rads (name of study) CT abd Radiology: Final report received (No acute abdominal process.) PD MEDICAL DECISION MAKING - ED course Complexity details: reviewed results, re-evaluated patient, d/w patient ED course: 21-year-old ak female presents emergency department for evaluation of periumbilical abdominal pain. She underwent an appendectomy on 14 August. She did require postoperatively a SAÚL drain to be placed. It was removed 08/20/21 in surgical office. Pain began suddenly this morning when she was sitting at her desk. She did endorse nausea and vomiting. On exam she did have some periumbilical pain without guarding or rebound. Screening labs were without acute findings. CT did not show any concerns related to the recent appendectomy or the drain removal. Specifically there was no abscess collection or fat stranding noted. Here in the emergency department she is given a dose of Dilaudid, Zofran as well as IV fluids with marked improvement in symptoms now tolerating p.o. liquids. I did briefly discussed this case with Dr. Dahl who saw her postoperatively. He however did not examine her. She is welcome to follow-up in the surgical clinic but given numerous visits postoperatively for pain he did recommend limiting the amount of narcotics that we do prescribed. Patient is clinically stable for discharge home. I have advised her to have closer follow-up with her primary care providers. Her pain may simply be healing tissues as no acute findings are seen today. Departure - Departure Disposition: Home, Self Care Clinical Impression: Periumbilical pain, Hx of appendectomy Condition: Stable Record reviewed to determine appropriate education?: Yes Comments: Jud you were seen in the emergency department today for sudden pain around your bellybutton. This was near the site where your SAÚL drain had been placed. Your screening labs today were all essentially normal and did not show any findings to suggest infection. The CT scan of your abdomen was also fairly unremarkable. I suspect that the cause of your pain may simply be tissues as they continue to heal. You can schedule follow-up with Dr. Dahl in clinic for reevaluation. In general it is okay to take the Tylenol or ibuprofen at home for discomfort. If at any point you develop fevers, have uncontrolled vomiting, have black or bloody stools or feel that your symptoms are not well controlled then you can return to the ER for second evaluation.
[2021-08-31] MEDS ORDERED: iohexoL-300 100 ML VIAL ONE (15:00)
[2021-08-31] MEDS ORDERED: iohexoL-300 100 ML VIAL IVP ONE (15:45)
--- NOTE | 2021-08-31 16:10 | CT Report ---
PROCEDURE: Abdomen/Pelvis W INDICATIONS: periumbilical pain after appy CONTRAST: IV CONTRAST: Isovue 300 ml: 100 PO CONTRAST: *NO PO CONTRAST TECHNIQUE: After the administration of intravenous contrast, 5 mm thick sections acquired from the diaphragms to the symphysis. 5 mm thick coronal and sagittal reformats were acquired. For radiation dose reducti on, the following was used: automated exposure control, adjustment of mA and/or kV according to erwin ent size. COMPARISON: August 16, 2021 FINDINGS: Inferior chest: No focal consolidation, pleural effusion, or pneumothorax. No cardiomegaly or perica rdial effusion. Gallbladder: The gallbladder is distended with a smooth thin wall. Biliary tree: No intra-or extrahepatic biliary ductal dilatation. Liver: The liver demonstrates normal enhancement, size, and contour. Spleen: Normal enhancement, size and morphology is seen. Pancreas: No contour deforming mass or inflammatory change. Adrenals: Normal size without masses. Kidneys/ureters: Normal size and morphology. No solid masses or hydronephrosis. Vasculature: No evidence of aneurysm or other significant vascular pathology. Lymphatic system: No pathologic enlargement by size criteria. GI/mesentery: No evidence of intestinal obstruction. Cecal suture material, compatible prior appendec rashad. Peritoneum/Retroperitoneum: No free intraperitoneal gas or large collection. Urinary bladder: The urinary bladder is distended with a smooth thin wall. Pelvic organs: No significant abnormality. Bones/soft tissues: No significant abnormality. Dextrocurvature of the thoracolumbar spine, unchanged . Trace fat-containing umbilical hernia. IMPRESSION: 1.No significant abnormality. Reviewed by: Osmar Bonner MD on 08/31/2021 4:09 PM [facility] Approved by: Osmar Bonner MD on 08/31/2021 4:09 PM PST Station ID: [id number]
== END 2021-08-31 16:47 | disposition home or self-care (01) ==
LOC: ED 13:05
DX: R10.33 Periumbilical pain (principal); Z98.890 Other specified postprocedural states
CPT/HCPCS: 36415; 74177; 80053; 81003; 81025; 83690; 85025; 96374; 96375; 99284; J1170; Q9967; 81001; 87086

== ENCOUNTER 2021-09-19 00:14 | Emergency (ER) | payer MEDICAID ==
[2021-09-19 01:17] VITALS: BP 140/85
[2021-09-19] MEDS ORDERED: BACITRACIN ZINC OINT 1 PACKET TOP STA (01:47)
--- NOTE | 2021-09-19 01:48 | ED Physician Documentation ---
PD HPI UPPER EXT INJURY - Stated complaint Stated Complaint: L THUMB INJ - Chief complaint Chief Complaint: Ext Problem - History obtained from History obtained from: Patient - Additonal information Additional information: The patient comes to the emergency department chief complaint of left thumb laceration. She states that she was using a knife at work and that it had lead residue on it. The knife slipped and she stabbed into the radial aspect of her Left thumb, over the mid proximal phalanx. The patient states that the knife was actually stuck in her thumb and had to be pulled out. She has not had any trouble using it, but does note that her thumb is sore in the area of the cut and also states she feels the pain shooting all the way up to her left shoulder. She does not notice redness or swelling. No weakness of flexion or extension. No drainage. She states the incident just happened earlier today. On scene, she washed the cut immediately, and a coworker super glued it. Her last tetanus shot she thinks was around 2018. No other complaints at this time. Review of Systems Ten Systems: 10 systems reviewed and negative Constitutional: reports: Reviewed and negative Eyes: reports: Reviewed and negative Ears: reports: Reviewed and negative Nose: reports: Reviewed and negative Throat: reports: Reviewed and negative Cardiac: reports: Reviewed and negative Respiratory: reports: Reviewed and negative GI: reports: Reviewed and negative : reports: Reviewed and negative Skin: reports: Laceration (s) Musculoskeletal: reports: Reviewed and negative Neurologic: reports: Reviewed and negative Psychiatric: reports: Reviewed and negative Endocrine: reports: Reviewed and negative Immunocompromised: reports: Reviewed and negative PD PAST MEDICAL HISTORY - Past Medical History Past Medical History: Yes Cardiovascular: None Respiratory: None Neuro: None Endocrine/Autoimmune: None GI: 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 HEENT: None Psych: None Musculoskeletal: None Derm: None - Past Surgical History Past Surgical History: Yes General: Appendectomy - Present Medications Home Medications: Ambulatory Orders Medication Instructions Recorded Confirmed No Known Home Medications 09/19/21 09/19/21 - Allergies Allergies/Adverse Reactions: Allergies Allergy/AdvReac Type Severity Reaction Status Date / Time Bleach (Sodium Hypochlorite) Allergy Itching Verified 09/19/21 01:17 - Social History Does the pt smoke?: No Smoking Status: Never smoker Does the pt drink ETOH?: No Does the pt have substance abuse?: No - Immunizations Immunizations are current?: Yes - POLST Patient has POLST: No PD ED PE NORMAL - Vitals Vital signs reviewed: Yes - General General: Alert and oriented X 3, No acute distress, Well developed/nourished - HEENT HEENT: Atraumatic, PERRL, EOMI, Moist mucous membranes - Neck Neck: Supple, no meningeal sign - Cardiac Cardiac: Strong equal pulses - Respiratory Respiratory: No respiratory distress - Derm Derm: Normal color, Warm and dry, No rash, Other (5 mm laceration with wound edges well approximated and no active bleeding, located on left mid proximal phalanx on radial aspect of thumb. No foreign bodies.) - Extremities Extremities: No deformity, Normal ROM s pain, No edema, Other (Tenderness to palpation over laceration noted above on left thumb proximal phalanx. No bony deformity. No soft tissue swelling. Full range of motion with both flexion and extension to resistance.) - Neuro Neuro: Alert and oriented X 3 - Psych Psych: Normal mood, Normal affect Results - Vitals Vitals: Vital Signs - 24 hr 09/19/21 01:15 Temperature 36.4 C L Heart Rate 74 Respiratory 15 Rate Blood Pressure 140/85 H O2 Saturation 100 Oxygen O2 Source Room air PD MEDICAL DECISION MAKING - ED course Complexity details: considered differential, d/w patient ED course: The patient had a benign and very small laceration with bleeding controlled and no evidence of more serious injury. We discussed symptomatic management at home and the usual indications for return. Departure - Departure Disposition: 01 Home, Self Care Clinical Impression: Laceration Condition: Stable Instructions: ED Laceration Small Superf No Sutr Discharge Date/Time: 09/19/21 01:59
== END 2021-09-19 01:59 | disposition home or self-care (01) ==
LOC: ED 00:14
DX: S61.012A Laceration without foreign body of left thumb without damage to nail, initial encounter (principal); W26.0XXA Contact with knife, initial encounter; Y99.0 Civilian activity done for income or pay
CPT/HCPCS: 99282; A9270

== ENCOUNTER 2021-09-22 00:25 | Emergency (ER) | payer MEDICAID ==
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
[2021-09-22 01:12] LABS: MUDS CUTOFF CONCENTRATIONS CUTOFF CONC BELOW:
[2021-09-22 01:19] LABS: BILIRUBIN,URINE NEGATIVE (NEGATIVE); GLUCOSE, URINE (UA) NEGATIVE (NEGATIVE); KETONES,URINE (UA) NEGATIVE (NEGATIVE); LEUKOCYTE ESTERASE, URINE NEGATIVE (NEGATIVE); NITRITE,URINE NEGATIVE (NEGATIVE); OCCULT BLOOD,URINE NEGATIVE (NEGATIVE); PH,URINE 6.5 PH (5.0-7.5); PROTEIN,URINE NEGATIVE (NEGATIVE); UROBILINOGEN,URINE 0.2 (NORMAL) E.U./dL (NORMAL)
[2021-09-22 01:23] LABS: CLARITY,URINE CLEAR (CLEAR); HCG UR QUAL NEGATIVE
[2021-09-22 01:28] LABS: BASOPHILS % (AUTO) 0.4 %; EOSINOPHILS # (AUTO) 0.2 10^3/uL (0.0-0.7); EOSINOPHILS % (AUTO) 2.3 %; HCT - HEMATOCRIT 34.1 % (37.0-47.0); HGB - HEMOGLOBIN 10.1 g/dL (12.0-16.0); LYMPHOCYTES # (AUTO) 2.8 10^3/uL (1.5-3.5); LYMPHOCYTES % (AUTO) 35.6 %; MEAN CORPUSCULAR HEMOGLOBIN 21.2 pg (27.0-31.0); MEAN CORPUSCULAR HGB CONC 29.6 g/dL (32.0-36.0); MEAN CORPUSCULAR VOLUME 71.5 fL (81.0-99.0); MEAN PLATELET VOLUME 10.6 fL (7.9-10.8); MONOCYTES # (AUTO) 0.7 10^3/uL (0.0-1.0); MONOCYTES % (AUTO) 8.3 %; NEUTROPHILS # (AUTO) 4.3 10^3/uL (1.5-6.6); NEUTROPHILS % (AUTO) 53.3 %; PLT - PLATELET COUNT 357 10^3/uL (130-450); RED BLOOD COUNT 4.77 10^6/uL (4.20-5.40); RED CELL DISTRIBUTION WIDTH 17.4 % (12.0-15.0)
[2021-09-22 01:33] LABS: AMPHETAMINE SCREEN,URINE NEGATIVE (NEGATIVE); BARBITURATE SCREEN,UR NEGATIVE (NEGATIVE); BENZODIAZEPINES SCREEN, URINE NEGATIVE (NEGATIVE); COCAINE SCREEN URINE NEGATIVE (NEGATIVE); METHADONE SCREEN, URINE NEGATIVE (NEGATIVE); METHAMPHETAMINES SCREEN, URINE NEGATIVE (NEGATIVE); OPIATE SCREEN, URINE NEGATIVE (NEGATIVE); OXYCODONE SCREEN, URINE NEGATIVE (NEGATIVE); PROPOXYPHENE SCREEN, URINE NEGATIVE (NEGATIVE); THC CANNABINOID SCREEN, URINE NEGATIVE (NEGATIVE); TRICYCLIC ANTIDEPRESSANT,URINE NEGATIVE (NEGATIVE)
[2021-09-22 01:43] LABS: ACETAMINOPHEN < 10 ug/mL (10-30); ALBUMIN 3.7 g/dL (3.2-5.5); ALBUMIN/GLOBULIN RATIO 1.1 (1.0-2.2); ALKALINE PHOSPHATASE 82 IU/L (42-121); ALT ALANINE AMINOTRANSFERASE 16 IU/L (10-60); AST ASPARTATE AMINOTRANSFERASE 14 IU/L (10-42); BILIRUBIN,TOTAL 0.2 mg/dL (0.2-1.0); BUN - BLOOD UREA NITROGEN 15 mg/dL (6-20); CALCIUM 8.8 mg/dL (8.5-10.3); CARBON DIOXIDE - CO2 24 mmol/L (21-32); CHLORIDE 109 mmol/L (101-111); CREATININE 0.7 mg/dL (0.4-1.0); ETOH - ETHANOL < 5.0 mg/dL; GFR - MDRD 104 (>89); GLUCOSE 112 mg/dL (70-100); LIPASE 27 U/L (22-51); POTASSIUM 3.6 mmol/L (3.5-5.0); SALICYLATE < 6.0 mg/dL; SODIUM 141 mmol/L (135-145)
[2021-09-22 02:10] LABS: B. PARAPERTUSSIS- RESP PCR PAN NOT DETECTED; B. PERTUSSIS- RESP PCR PANEL NOT DETECTED; C. PNEUMONIAE- RESP PCR PANEL NOT DETECTED; CORONAVIRUS 229E-RESP PCR NOT DETECTED; CORONAVIRUS HKU1-RESP PCR NOT DETECTED; CORONAVIRUS NL63-RESP PCR NOT DETECTED; CORONAVIRUS OC43-RESP PCR NOT DETECTED; HUMAN METAPNEUMOVIRUS NOT DETECTED; INFLUENZA A- RESP PCR PANEL NOT DETECTED; INFLUENZA B - RESP PCR PANEL NOT DETECTED; M. PNEUMONIAE- RESP PCR PANEL NOT DETECTED; PARAINFLUENZA VIRUS 1 NOT DETECTED; PARAINFLUENZA VIRUS 2 NOT DETECTED; PARAINFLUENZA VIRUS 3 NOT DETECTED; PARAINFLUENZA VIRUS 4 NOT DETECTED; RHINOVIRUS/ENTEROVIRUS NOT DETECTED; RSV- RESP PCR PANEL NOT DETECTED; SARS-CoV-2 -RESP PCR PANEL NOT DETECTED
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
[2021-09-22] MEDS ORDERED: SERTRALINE 25 MG TABLET PO STA (17:17)
[2021-09-22] MEDS ORDERED: PRAZOSIN 1 MG CAPSULE PO STA (17:17)
--- NOTE | 2021-09-22 17:20 | ED Physician Documentation ---
ED Addendum - Addendum Addendum: 09/22/21 17:18 Patient is a 21-year-old female who was signed out to me by Dr. Hutton. Social work did evaluate the patient. I contacted several facilities who declined her stating that she did not have high enough acuity to be admitted to the hospital. The patient is not suicidal or homicidal. She is able to contract for safety. Safety planning was performed with social work. Patient's fianc is comfortable with her coming home at this time. He will be with her tonight. We will start her on Zoloft and prazosin as recommended by telepsychiatry. Patient counseled regarding signs and symptoms for which I believe and urgent re-evaluation would be necessary. Patient with good understanding of and agreement to plan and is comfortable going home at this time This document was made in part using voice recognition software. While efforts are made to proofread this document, sound alike and grammatical errors may occur. Departure - Departure Disposition: 01 Home, Self Care Clinical Impression: Anxiety, Posttraumatic stress disorder Depression Qualifiers: Depression Type: unspecified Qualified Code(s): F32.A - Depression, unspecified Condition: Good Instructions: ED Depression Follow-Up: Your,doctor in 1 week [Other] Prescriptions: Prazosin HCl [Minipress] 2 mg PO QPM 30 Days #30 cap Sertraline [Zoloft] 25 mg PO DAILY 30 Days #30 tablet Comments: Your prescriptions were sent to [facility] in [place]. Please follow-up with your doctor for further care. Start the medications as prescribed. Return if you worsen. Crisis Line and is available to talk to someone [email or web address] is also available to chat with someone online if you prefer. There are also many resources on this website and apps for your phone to help with your mental health You can also text the word START to [phone] to chat with someome via text.
[2021-09-22 17:29] VITALS: BP 123/79
== END 2021-09-22 18:16 | disposition home or self-care (01) ==
LOC: ED 00:25
DX: F41.1 Generalized anxiety disorder (principal); F32.A Depression, unspecified; F43.10 Post-traumatic stress disorder, unspecified; Z20.822 Contact with and (suspected) exposure to COVID-19
CPT/HCPCS: 0202U; 36415; 80053; 80306; 80307; 80320; 80329; 81003; 81025; 83690; 84443; 85025; 99283; A9270; G0427; Q3014; 81001; 87086

== ENCOUNTER 2021-10-11 14:26 | Emergency (ER) | payer MEDICAID ==
[2021-10-11 15:07] LABS: BILIRUBIN,URINE NEGATIVE (NEGATIVE); GLUCOSE, URINE (UA) NEGATIVE (NEGATIVE); KETONES,URINE (UA) NEGATIVE (NEGATIVE); LEUKOCYTE ESTERASE, URINE NEGATIVE (NEGATIVE); NITRITE,URINE NEGATIVE (NEGATIVE); OCCULT BLOOD,URINE NEGATIVE (NEGATIVE); PROTEIN,URINE NEGATIVE (NEGATIVE); UROBILINOGEN,URINE 0.2 (NORMAL) E.U./dL (NORMAL)
[2021-10-11 15:15] LABS: BASOPHILS % (AUTO) 0.4 %; EOSINOPHILS # (AUTO) 0.1 10^3/uL (0.0-0.7); EOSINOPHILS % (AUTO) 1.3 %; HGB - HEMOGLOBIN 10.8 g/dL (12.0-16.0); LYMPHOCYTES # (AUTO) 2.4 10^3/uL (1.5-3.5); LYMPHOCYTES % (AUTO) 28.4 %; MEAN CORPUSCULAR HEMOGLOBIN 21.1 pg (27.0-31.0); MEAN CORPUSCULAR VOLUME 70.2 fL (81.0-99.0); MEAN PLATELET VOLUME 10.5 fL (7.9-10.8); MONOCYTES # (AUTO) 0.7 10^3/uL (0.0-1.0); MONOCYTES % (AUTO) 8.2 %; NEUTROPHILS # (AUTO) 5.2 10^3/uL (1.5-6.6); NEUTROPHILS % (AUTO) 61.5 %; PLT - PLATELET COUNT 410 10^3/uL (130-450); RED BLOOD COUNT 5.13 10^6/uL (4.20-5.40); RED CELL DISTRIBUTION WIDTH 17.6 % (12.0-15.0); WHITE BLOOD COUNT 8.5 x10^3/uL (4.8-10.8)
[2021-10-11 15:17] LABS: CLARITY,URINE CLEAR (CLEAR); HCG UR QUAL NEGATIVE
[2021-10-11 15:26] LABS: ALBUMIN 4.2 g/dL (3.2-5.5); ALBUMIN/GLOBULIN RATIO 1.2 (1.0-2.2); BILIRUBIN,TOTAL 0.7 mg/dL (0.2-1.0); CALCIUM 8.6 mg/dL (8.5-10.3); CREATININE 0.6 mg/dL (0.4-1.0); POTASSIUM 3.6 mmol/L (3.5-5.0); TOTAL PROTEIN 7.8 g/dL (6.7-8.2)
--- NOTE | 2021-10-11 15:54 | ED Physician Documentation ---
PD HPI NVD - Stated complaint Stated Complaint: VOMITTING - Chief complaint Chief Complaint: Abd Pain - History obtained from History obtained from: Patient - History of Present Illness Timing - onset: How many days ago (3) Timing - duration: Days (3) Timing - details: Abrupt onset, Still present Associated symptoms: Abdominal pain (crampy upper pain), Hematemesis (just the last emesis [employer] had noted small amount red blood with emesis.), Loss of appetite. No: Fever, Near syncope / syncope Contributing factors: Other (had appy 1 1/2 months ago, healed okay. MOst recently is on ZOLoft the past 2 weeks with increasing dose. increased to just 25 mg daily the day prior to onset of symptoms.). No: Sick contact, Bad food, Recent antibiotics Improved by: No: Vomiting Similar symptoms before: Has not had sx before Recently seen: Emergency Dept Review of Systems Constitutional: denies: Fever, Chills Nose: denies: Rhinorrhea / runny nose, Congestion Throat: denies: Sore throat Respiratory: denies: Cough GI: reports: Abdominal Pain (upper), Nausea, Vomiting. 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 : None HEENT: None Psych: Depression, Post traumatic stress disorder Musculoskeletal: None Derm: None - Past Surgical History Past Surgical History: Yes General: Appendectomy - Present Medications Home Medications: Ambulatory Orders Medication Instructions Recorded Confirmed Prazosin HCl [Minipress] 2 mg PO QPM 30 Days #30 cap 09/22/21 Sertraline [Zoloft] 25 mg PO DAILY 30 Days #30 tablet 09/22/21 Famotidine [Pepcid] 20 mg PO DAILY #20 tablet 10/11/21 Ondansetron Odt [Zofran] 4 mg TL Q6H PRN #20 tablet 10/11/21 - Allergies Allergies/Adverse Reactions: Allergies Allergy/AdvReac Type Severity Reaction Status Date / Time Bleach (Sodium Hypochlorite) Allergy Itching Verified 10/11/21 14:54 - Social History Does the pt smoke?: No Smoking Status: Never smoker Does the pt drink ETOH?: No Does the pt have substance abuse?: No - Immunizations Immunizations are current?: Yes - POLST Patient has POLST: No PD ED PE NORMAL - Vitals Vital signs reviewed: Yes - General General: Alert and oriented X 3, No acute distress, Well developed/nourished - HEENT HEENT: Moist mucous membranes, Pharynx benign - Neck Neck: Supple, no meningeal sign, No adenopathy - Cardiac Cardiac: RRR, No murmur - Respiratory Respiratory: Clear bilaterally - Abdomen Abdomen: Normal bowel sounds, Soft, No organomegaly, Other (tender upper abd/epigastric area without guarding nor percussion tender. Bowel sounds decreased. Healed appy scope scars noted lower abd. Mild abd distension. ) - Female Female : Deferred - Rectal Rectal: Deferred - Derm Derm: Normal color, Warm and dry - Extremities Extremities: Normal ROM s pain - Neuro Neuro: Alert and oriented X 3, No motor deficit, Normal speech Results - Vitals Vitals: Vital Signs - 24 hr 10/11/21 10/11/21 10/11/21 14:48 16:54 18:00 Temperature 36.8 C Heart Rate 74 75 70 Respiratory 17 19 18 Rate Blood Pressure 128/72 140/77 H 117/65 O2 Saturation 98 98 100 Oxygen O2 Source Room air - Labs Labs: Laboratory Tests 10/11/21 10/11/21 10/11/21 15:04 15:08 15:08 WBC 8.5 RBC 5.13 Hgb 10.8 L Hct 36.0 L MCV 70.2 L MCH 21.1 L MCHC 30.0 L RDW 17.6 H Plt Count 410 MPV 10.5 Neut # (Auto) 5.2 Lymph # (Auto) 2.4 [place] # (Auto) 0.7 Eos # (Auto) 0.1 Baso # (Auto) 0.0 Absolute Nucleated RBC 0.00 Nucleated RBC % 0.0 Sodium 132 L Potassium 3.6 Chloride 103 Carbon Dioxide 22 Anion Gap 7.0 BUN 12 Creatinine 0.6 Estimated GFR (MDRD) 124 Glucose 95 Calcium 8.6 Total Bilirubin 0.7 AST 15 ALT 16 Alkaline Phosphatase 93 Total Protein 7.8 Albumin 4.2 Globulin 3.6 Albumin/Globulin Ratio 1.2 Lipase 29 Urine Color YELLOW Urine Clarity CLEAR Urine pH 6.0 Ur Specific [place] >=1.030 H Urine Protein NEGATIVE Urine Glucose (UA) NEGATIVE Urine Ketones NEGATIVE Urine Occult Blood NEGATIVE Urine Nitrite NEGATIVE Urine Bilirubin NEGATIVE Urine Urobilinogen 0.2 (NORMAL) Ur Leukocyte Esterase NEGATIVE Ur Microscopic Review NOT INDICATED Urine Culture Comments NOT INDICATED Urine HCG, Qual NEGATIVE - Rads (name of study) abd/pelvic ct Radiology: Prelim report reviewed (no acute process.), See rad report PD MEDICAL DECISION MAKING - ED course Complexity details: reviewed results (abd CT is okay, so no apparent adhesions/SBO, other problem.), re-evaluated patient (much improved symptoms with fluids and meds. ), considered differential (consider gastritis, viral GE, med side effect (Had increased dose and developed these symptoms). recent appy, so consider partial SBO.), d/w patient Departure - Departure Disposition: Home, Self Care Clinical Impression: Medication side effect Nausea and vomiting Qualifiers: Vomiting type: unspecified Qualified Code(s): R11.2 - Nausea with vomiting, unspecified Gastritis Qualifiers: Gastritis type: unspecified gastritis Chronicity: acute Gastritis bleeding: with bleeding Qualified Code(s): K29.01 - Acute gastritis with bleeding Condition: Stable Record reviewed to determine appropriate education?: Yes Instructions: ED Nausea Vomiting Prescriptions: Famotidine [Pepcid] 20 mg PO DAILY #20 tablet Ondansetron Odt [Zofran] 4 mg TL Q6H PRN #20 tablet PRN Reason: Nausea / Vomiting Comments: Your CT scan does not show any acute abnormalities. Your blood tests urine test and test are also all normal/negative. It sounds most likely that your nausea vomiting and stomach discomfort relate to side effects to your new medication. Potentially possible would be just viral illness otherwise but the timing would share sound suspicious to be medication related. As such I would suggest holding your Zoloft for 2 days and then resuming it at either half or quarter dose (12.5 or 6.25 mg) for a few days and call and discuss it with your provider to see if they want to extend that a bit more before stopping it. Also did discuss replacement for it to try a different medicine. Other medications may have side effects to but it commonly is that a different medication in the same class will do better. For now you can use ondansetron if needed for nausea. I would suggest famotidine acid reducing medicine twice daily for the next few days and then once daily for another week or 2. Add Tylenol every 4-6 hours if needed for pains. Avoid irritants of the stomach such as NSAIDs, caffeine, alcohol, spicy food. Recheck if not better over the next several days. I transmitted your prescriptions to the [facility] pharmacy. Discharge Date/Time: 10/11/21 18:13
[2021-10-11] MEDS ORDERED: KETOROLAC 15 MG/ML VIAL IVP STA (16:13)
[2021-10-11] MEDS ORDERED: ONDANSETRON 4 MG/2 ML VIAL IVP STA (16:13)
[2021-10-11] MEDS ORDERED: FAMOTIDINE 20 MG/2 ML VIAL IVP STA (16:13)
[2021-10-11] MEDS ORDERED: SODIUM CHLORIDE 0.9% 1,000 ML IV STA (16:13)
[2021-10-11] MEDS ORDERED: IOVERSOL 320 100 ML VIAL IVP ONE (16:31)
--- NOTE | 2021-10-11 17:47 | CT Report ---
PROCEDURE: Abdomen/Pelvis W INDICATIONS: upper abd pain, and vomiting; 6 wks post appy CONTRAST: IV CONTRAST: Optiray 320 ml: 100 PO CONTRAST: *NO PO CONTRAST TECHNIQUE: After the administration of intravenous contrast, 5 mm thick sections acquired from the diaphragms to the symphysis. 5 mm thick coronal and sagittal reformats were acquired. For radiation dose reducti on, the following was used: automated exposure control, adjustment of mA and/or kV according to erwin ent size. COMPARISON: CT abdomen and pelvis with contrast, 08/31/2021. FINDINGS: Image quality: Excellent. ABDOMEN: Lung bases: Lung bases are clear. Heart size is normal. Small hiatal hernia. Solid organs: Mild hepatic steatosis. Liver and spleen are normal in size and enhancement. Gallblad corbin is normal. Biliary system is non dilated. Pancreas enhances normally. No adrenal nodules. Kid neys demonstrate normal size and enhancement, without hydronephrosis. Peritoneum and bowel: There are postsurgical changes related to appendectomy. Bowel loops demonstrat e normal wall thickness and caliber. No free fluid or air. Nodes and vessels: No retroperitoneal or mesenteric adenopathy by size criteria. Small normal-sized mesenteric lymph nodes in the right upper quadrant are likely reactive. Aorta and inferior vena cava are normal in size. Miscellaneous: No ventral hernias. PELVIS: Genitourinary: Uterus and ovaries are grossly normal. Bladder wall thickness is normal. No patholog ical free fluid in the cul-de-sac. Miscellaneous: No inguinal hernias or adenopathy. Bones: There is a small sclerotic focus in the right iliac bone, probably a bone island. No suspicio us bony lesions. No vertebral body compression fractures. IMPRESSION: 1. No acute medication and terminal pelvis. 2. Appendectomy. 3. Mild hepatic steatosis. Reviewed by: Alyx Carrera MD on 10/11/2021 5:45 PM PST Approved by: Alyx Carrera MD on 10/11/2021 5:45 PM PST Station ID: [id number]
[2021-10-11 18:06] VITALS: BP 117/65
== END 2021-10-11 18:13 | disposition home or self-care (01) ==
LOC: ED 14:26
DX: K29.01 Acute gastritis with bleeding (principal)
CPT/HCPCS: 36415; 74177; 80053; 81003; 81025; 83655; 83690; 85025; 96374; 96375; 99282; 99284; Q9967; 81001; 87086

== ENCOUNTER 2022-01-05 01:22 | Emergency (ER) | payer MEDICAID ==
--- NOTE | 2022-01-05 03:27 | ED Physician Documentation ---
PD HPI HEADACHE - Stated complaint Stated Complaint: NAUSEA/MIGRAINE - Chief complaint Chief Complaint: Neuro - History obtained from History obtained from: Patient - History of Present Illness Timing - onset: How many weeks ago (2 weeks) Timing - details: Gradual onset, Constant, Waxing and waning Pain level now: 6 Location: Global Quality: Throbbing, Aching Improved by: Dark room Worsened by: Light Contributing factors: No: Anticoagulated, Hypertension, Recent illness, Trauma Similar symptoms before: Has not had sx before Recently seen: Not recently seen - Additional information Additional information: c/o 2 weeks of generalized headache with intermittent stuttering speech, tremulousness and lightheadedness, photophobia, nausea but no vomiting. Has had intermittent relief with acetaminophen. Has not been medically evaluated for headaches before tonight. Denies injury. Review of Systems Constitutional: reports: Reviewed and negative Eyes: reports: Photophobia. denies: Loss of vision, Decreased vision Cardiac: reports: Reviewed and negative Respiratory: reports: Reviewed and negative GI: reports: Nausea. denies: Abdominal Pain, Vomiting : denies: Now EGA Neurologic: reports: Difficulty speaking (episodic stuttering speech), Headache. 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 : None HEENT: None Psych: Depression, Post traumatic stress disorder Musculoskeletal: None Derm: None - Past Surgical History Past Surgical History: Yes General: Appendectomy - Present Medications Home Medications: Ambulatory Orders Medication Instructions Recorded Confirmed Prazosin HCl [Minipress] 2 mg PO QPM 30 Days #30 cap 09/22/21 Sertraline [Zoloft] 25 mg PO DAILY 30 Days #30 tablet 09/22/21 Famotidine [Pepcid] 20 mg PO DAILY #20 tablet 10/11/21 Ondansetron Odt [Zofran] 4 mg TL Q6H PRN #20 tablet 10/11/21 - Allergies Allergies/Adverse Reactions: Allergies Allergy/AdvReac Type Severity Reaction Status Date / Time Bleach (Sodium Hypochlorite) Allergy Itching Verified 10/11/21 14:54 - Social History Does the pt smoke?: No Smoking Status: Never smoker Does the pt drink ETOH?: No Does the pt have substance abuse?: No - Immunizations Immunizations are current?: Yes - POLST Patient has POLST: No PD ED PE NORMAL - Vitals Vital signs reviewed: Yes - General General: Alert and oriented X 3, No acute distress, Well developed/nourished, Other (lights are off in room for patient comfort at her request (due to photophobia)) - HEENT HEENT: Atraumatic, PERRL, EOMI, Moist mucous membranes - Neck Neck: Supple, no meningeal sign - Cardiac Cardiac: RRR, No murmur - Respiratory Respiratory: No respiratory distress, Clear bilaterally - Abdomen Abdomen: Soft, Non tender - Neuro Neuro: Alert and oriented X 3, channel marketing manager 2-12 intact, No motor deficit, No sensory deficit, Normal speech Eye Opening: Spontaneous Motor: Obeys Commands Verbal: Oriented GCS Score: 15 Results - Vitals Vitals: Oxygen O2 Source Room air - Labs Labs: Laboratory Tests 01/05/22 01/05/22 01/05/22 03:58 03:58 03:58 WBC 9.9 RBC 5.43 H Hgb 11.1 L Hct 37.7 MCV 69.4 L MCH 20.4 L MCHC 29.4 L RDW 19.5 H Plt Count 389 MPV 11.7 H Neut # (Auto) 5.2 Lymph # (Auto) 3.5 [place] # (Auto) 0.9 Eos # (Auto) 0.2 Baso # (Auto) 0.0 Absolute Nucleated RBC 0.00 Nucleated RBC % 0.0 Manual Slide Review Indicated Platelet Estimate NORMAL (130-450,000) RBC Morph Micro Appear 1+ OVALOCYTES Sodium 138 Potassium 4.0 Chloride 106 Carbon Dioxide 21 Anion Gap 11.0 BUN 16 Creatinine 0.7 Estimated GFR (MDRD) 104 Glucose 104 H Calcium 8.4 L Total Bilirubin 0.3 AST 14 ALT 15 Alkaline Phosphatase 91 Total Protein 7.4 Albumin 4.0 Globulin 3.4 Albumin/Globulin Ratio 1.2 Lipase 30 TSH 3.36 - Rads (name of study) CT head Radiology: Prelim report reviewed, See rad report PD MEDICAL DECISION MAKING - ED course Complexity details: reviewed results, re-evaluated patient, considered differential, d/w patient ED course: given toradol and zofran IV as well as 1 liter NS bolus IV. CT head is without abnormality and there are no concerning findings on blood tests. She is afebrile and WBC normal, no meningismus. She is asleep on reevaluation after these interventions and tests resulted, easily awakens to verbal and reports resolution of her symptoms. Her neurological exam is unremarkable except for mild/moderate photophobia on initial exam (which resolved by the time of reevaluation). Etiology of her symptoms is not apparent at this time. Differential would include migraine headache, although the duration would be atypical. She also has not had similar previous headaches, and thus I did not prescribe migraine-specific medication (such as imitrex), although this might be reconsidered if she develops a recurrent pattern of similar headaches. I reviewed results with patient. I instructed her to follow up with primary care provider, return if worse. Departure - Departure Disposition: 01 Home, Self Care Clinical Impression: Headache Condition: Good Instructions: ED Cephalgia Unspecified Comments: There were no concerning findings on tonight's tests, including CT scan of your head as well as blood tests. As we discussed, your red blood cell count was slightly below normal but not nearly low enough to cause any symptoms. The cause of your symptoms is not apparent at this time. Follow up with your primary care provider. Return to the emergency department if your symptoms worsen. Discharge Date/Time: 01/05/22 06:38
[2022-01-05] MEDS ORDERED: SODIUM CHLORIDE 0.9% 1,000 ML IV STA (03:44)
[2022-01-05] MEDS ORDERED: KETOROLAC 30 MG/ML VIAL IVP STA (03:44)
[2022-01-05] MEDS ORDERED: ONDANSETRON 4 MG/2 ML VIAL IVP STA (03:44)
[2022-01-05 04:30] LABS: BASOPHILS % (AUTO) 0.4 %; EOSINOPHILS # (AUTO) 0.2 10^3/uL (0.0-0.7); HCT - HEMATOCRIT 37.7 % (37.0-47.0); HGB - HEMOGLOBIN 11.1 g/dL (12.0-16.0); LYMPHOCYTES # (AUTO) 3.5 10^3/uL (1.5-3.5); LYMPHOCYTES % (AUTO) 35.6 %; MEAN CORPUSCULAR HEMOGLOBIN 20.4 pg (27.0-31.0); MEAN CORPUSCULAR HGB CONC 29.4 g/dL (32.0-36.0); MEAN CORPUSCULAR VOLUME 69.4 fL (81.0-99.0); MEAN PLATELET VOLUME 11.7 fL (7.9-10.8); MONOCYTES # (AUTO) 0.9 10^3/uL (0.0-1.0); MONOCYTES % (AUTO) 8.7 %; NEUTROPHILS # (AUTO) 5.2 10^3/uL (1.5-6.6); NEUTROPHILS % (AUTO) 53.1 %; PLT - PLATELET COUNT 389 10^3/uL (130-450); RED BLOOD COUNT 5.43 10^6/uL (4.20-5.40); RED CELL DISTRIBUTION WIDTH 19.5 % (12.0-15.0); WHITE BLOOD COUNT 9.9 x10^3/uL (4.8-10.8)
[2022-01-05 04:31] LABS: SLIDE REVIEW? Indicated
[2022-01-05 04:40] LABS: ALBUMIN/GLOBULIN RATIO 1.2 (1.0-2.2); BILIRUBIN,TOTAL 0.3 mg/dL (0.2-1.0); CALCIUM 8.4 mg/dL (8.5-10.3); CREATININE 0.7 mg/dL (0.4-1.0); TOTAL PROTEIN 7.4 g/dL (6.7-8.2)
[2022-01-05 04:57] LABS: PLATELET ESTIMATE, MANUAL NORMAL (130-450,000) (NORMAL)
[2022-01-05 06:40] VITALS: BP 105/61
--- NOTE | 2022-01-05 07:20 | CT Report ---
PROCEDURE: HEAD WO INDICATIONS: WELLER TECHNIQUE: Noncontrast 4.5 mm thick angled axial sections acquired from the foramen magnum to the vertex. For r adiation dose reduction, the following was used: automated exposure control, adjustment of mA and/or kV according to patient size. COMPARISON: None. FINDINGS: Image quality: Excellent. CSF spaces: Basal cisterns are patent. No extra-axial fluid collections. Ventricles are normal in size and shape. Brain: No midline shift. No intracranial masses or hemorrhage. Bains-white matter interface is norm al. Skull and face: Calvarium and visualized facial bones are intact, without suspicious lesions. Sinuses: Visualized sinuses and mastoids are clear. IMPRESSION: No evidence of acute intracranial process. Findings are concordant with preliminary interpretation provided by [facility]. Reviewed by: Napoleon Silva MD on 01/05/2022 7:18 AM PDT Approved by: Napoleon Silva MD on 01/05/2022 7:18 AM PDT Station ID: [id number]
== END 2022-01-05 06:38 | disposition home or self-care (01) ==
LOC: ED 01:22
DX: R51.9 Headache, unspecified (principal); I10 Essential (primary) hypertension
CPT/HCPCS: 36415; 80053; 83690; 84443; 85025; 96374; 96375; 99282

== ENCOUNTER 2022-01-28 18:19 | Emergency (ER) | payer MEDICAID ==
[2022-01-28 18:42] VITALS: BP 140/79
[2022-01-28] MEDS ORDERED: DOXEPIN 10 MG CAPSULE PO STA (18:58)
[2022-01-28] MEDS ORDERED: predniSONE 20 MG TABLET PO STA (18:58)
--- NOTE | 2022-01-28 19:01 | ED Physician Documentation ---
History of Present Illness - Stated complaint Stated Complaint: ALLERGIC REACTION - Chief complaint Chief Complaint: Allergic Rx - History obtained from History obtained from: Patient (21-year-old woman has had 2 weeks of hives predominantly on the upper chest and anterior neck that are quite itchy. She wonders if it might be related to bleach but she has not particularly been exposed to bleach that she knows of. She never had a reaction like this before. 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 : None HEENT: None Psych: Depression, Post traumatic stress disorder Musculoskeletal: None Derm: None - Past Surgical History Past Surgical History: Yes General: Appendectomy - Present Medications Home Medications: Ambulatory Orders Medication Instructions Recorded Confirmed Prazosin HCl [Minipress] 2 mg PO QPM 30 Days #30 cap 09/22/21 Sertraline [Zoloft] 25 mg PO DAILY 30 Days #30 tablet 09/22/21 Famotidine [Pepcid] 20 mg PO DAILY #20 tablet 10/11/21 Ondansetron Odt [Zofran] 4 mg TL Q6H PRN #20 tablet 10/11/21 Doxepin [SINEquan] 10 mg PO TID PRN #30 cap 01/28/22 predniSONE [Deltasone] 60 mg PO DAILY 5 Days #15 tablet 01/28/22 - Allergies Allergies/Adverse Reactions: Allergies Allergy/AdvReac Type Severity Reaction Status Date / Time Bleach (Sodium Hypochlorite) Allergy Itching Verified 01/28/22 18:42 - Social History Does the pt smoke?: No Smoking Status: Never smoker Does the pt drink ETOH?: No Does the pt have substance abuse?: No - Immunizations Immunizations are current?: Yes - POLST Patient has POLST: No PD ED PE NORMAL - Vitals Vital signs reviewed: Yes - General General: Alert and oriented X 3, No acute distress - HEENT HEENT: Pharynx benign - Respiratory Respiratory: No respiratory distress, Clear bilaterally - Derm Derm: Other (Macular hives mostly on the anterior neck and upper chest. Also a bit on the face and behind the ears.) Results - Vitals Vitals: Vital Signs - 24 hr 01/28/22 18:39 Temperature 36.7 C Heart Rate 87 Respiratory 16 Rate Blood Pressure 140/79 H O2 Saturation 100 Oxygen O2 Source Room air PD MEDICAL DECISION MAKING - ED course ED course: 21-year-old woman with urticaria, cause unknown. She is treated with doxepin and prednisone and advised for allergy follow-up if not quickly improved with sustained resolution. Departure - Departure Disposition: 01 Home, Self Care Clinical Impression: Allergic urticaria Condition: Good Instructions: ED Urticaria Prescriptions: predniSONE [Deltasone] 60 mg PO DAILY 5 Days #15 tablet Doxepin [SINEquan] 10 mg PO TID PRN #30 cap PRN Reason: Itching Comments: [facility] [place]. Return for new or worsening symptoms. If symptoms are persistent reasonable to follow-up with an butcher head, look like the closest is in [facility] [phone]. Discharge Date/Time: 01/28/22 19:14
== END 2022-01-28 19:14 | disposition home or self-care (01) ==
LOC: ED 18:19
DX: L50.0 Allergic urticaria (principal)
CPT/HCPCS: 99282; A9270; J7512

== ENCOUNTER 2022-05-02 21:09 | Emergency (ER) | payer MEDICAID ==
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
[2022-05-02] MEDS ORDERED: KETOROLAC 15 MG/ML VIAL IVP STA (21:36)
[2022-05-02] MEDS ORDERED: SODIUM CHLORIDE 0.9% 1,000 ML IV STA (21:36)
[2022-05-02 21:46] LABS: BASOPHILS % (AUTO) 0.1 %; EOSINOPHILS % (AUTO) 0.3 %; HCT - HEMATOCRIT 35.1 % (37.0-47.0); HGB - HEMOGLOBIN 10.7 g/dL (12.0-16.0); LYMPHOCYTES # (AUTO) 0.3 10^3/uL (1.5-3.5); LYMPHOCYTES % (AUTO) 4.5 %; MEAN CORPUSCULAR HEMOGLOBIN 20.9 pg (27.0-31.0); MEAN CORPUSCULAR HGB CONC 30.5 g/dL (32.0-36.0); MEAN CORPUSCULAR VOLUME 68.7 fL (81.0-99.0); MEAN PLATELET VOLUME 10.6 fL (7.9-10.8); MONOCYTES # (AUTO) 0.8 10^3/uL (0.0-1.0); MONOCYTES % (AUTO) 11.3 %; NEUTROPHILS # (AUTO) 5.9 10^3/uL (1.5-6.6); NEUTROPHILS % (AUTO) 83.7 %; PLT - PLATELET COUNT 369 10^3/uL (130-450); RED BLOOD COUNT 5.11 10^6/uL (4.20-5.40); RED CELL DISTRIBUTION WIDTH 17.9 % (12.0-15.0); SLIDE REVIEW? Indicated; WHITE BLOOD COUNT 7.1 x10^3/uL (4.8-10.8)
[2022-05-02 22:02] LABS: ALBUMIN 4.1 g/dL (3.2-5.5); ALBUMIN/GLOBULIN RATIO 1.2 (1.0-2.2); BILIRUBIN,TOTAL 0.6 mg/dL (0.2-1.0); CALCIUM 8.5 mg/dL (8.5-10.3); CREATININE 0.7 mg/dL (0.4-1.0); POTASSIUM 3.8 mmol/L (3.5-5.0); TOTAL PROTEIN 7.5 g/dL (6.7-8.2)
[2022-05-02 22:03] LABS: PLATELET ESTIMATE, MANUAL NORMAL (130-450,000) (NORMAL); PLATELET MORPHOLOGY 1+ LARGE PLATELETS (NORMAL); WBC MORPHOLOGY (MULTIPLE) NORMAL APPEARANCE (NORMAL)
--- NOTE | 2022-05-02 23:22 | XRAY Report ---
PROCEDURE: Chest 1 View X-Ray INDICATIONS: CP/DYSPNEA TECHNIQUE: One view of the chest was acquired. COMPARISON: Chest x-ray 07/07/2021. FINDINGS: Surgical changes and devices: None. Lungs and pleura: No pleural effusions or pneumothorax. There are low lung volumes with mild pulmon jeni vascular prominence likely representing vascular crowding. No focal consolidation. Mediastinum: Mediastinal contours appear unchanged. Heart size is normal. Bones and chest wall: No suspicious bony lesions. Overlying soft tissues appear unremarkable. IMPRESSION: 1. Low lung volumes with likely associated vascular crowding. The differential includes mild pulmonar y edema. Reviewed by: Yuriy Nunez MD on 05/02/2022 11:28 PM PDT Approved by: Yuriy Nunez MD on 05/02/2022 11:28 PM PDT Station ID: [id number]
--- NOTE | 2022-05-02 23:28 | ED Physician Documentation ---
PD HPI CHEST PAIN - Stated complaint Stated Complaint: TROUBLE BREATHING,WELLER - Chief complaint Chief Complaint: Resp - History obtained from History obtained from: Patient - History of Present Illness Timing - onset: Today - Additional information Additional information: 21-year-old female with no reported past medical history presents by private vehicle for 1 day of generalized chest pain and shortness of breath that she noticed when she woke up. Patient states that it started with a sore throat and then gradually progressed to her current symptoms. She states that it hurts to breathe and she feels generally unwell. She took NyQuil earlier today for her symptoms but it did not really help and so she is presenting today for evaluation. Review of Systems Ten Systems: 10 systems reviewed and negative Constitutional: denies: Fever, Chills Throat: reports: Sore throat. denies: Dental pain / toothache Cardiac: reports: Chest pain / pressure. denies: Palpitations Respiratory: reports: Dyspnea. denies: Cough, Wheezing GI: denies: Abdominal Pain, Abdominal Swelling, Nausea, Vomiting Skin: denies: Rash, Lesions, Abrasion (s) PD PAST MEDICAL HISTORY - Past Medical History Cardiovascular: None Respiratory: None Neuro: None Endocrine/Autoimmune: None GI: Other AWNING MAKER: None : None HEENT: None Psych: Depression, Post traumatic stress disorder Musculoskeletal: None Derm: None - Past Surgical History Past Surgical History: Yes General: Appendectomy - Present Medications Home Medications: Ambulatory Orders Medication Instructions Recorded Confirmed Prazosin HCl [Minipress] 2 mg PO QPM 30 Days #30 cap 09/22/21 Sertraline [Zoloft] 25 mg PO DAILY 30 Days #30 tablet 09/22/21 Famotidine [Pepcid] 20 mg PO DAILY #20 tablet 10/11/21 Ondansetron Odt [Zofran] 4 mg TL Q6H PRN #20 tablet 10/11/21 Doxepin [SINEquan] 10 mg PO TID PRN #30 cap 01/28/22 predniSONE [Deltasone] 60 mg PO DAILY 5 Days #15 tablet 01/28/22 - Allergies Allergies/Adverse Reactions: Allergies Allergy/AdvReac Type Severity Reaction Status Date / Time Bleach (Sodium Hypochlorite) Allergy Itching Verified 05/02/22 21:13 - Social History Does the pt smoke?: No Smoking Status: Never smoker Does the pt drink ETOH?: No Does the pt have substance abuse?: No - Immunizations Immunizations are current?: Yes - POLST Patient has POLST: No PD ED PE NORMAL - Vitals Vital signs reviewed: Yes - General General: Alert and oriented X 3, Well developed/nourished - HEENT HEENT: Atraumatic, PERRL, EOMI, Ears normal, Moist mucous membranes, Pharynx benign (no edema, erythema, or exudates), Dentition benign - Cardiac Cardiac: RRR, Strong equal pulses - Respiratory Respiratory: No respiratory distress, Clear bilaterally - Abdomen Abdomen: Soft, Non tender, Non distended, No organomegaly - Back Back: No CVA TTP, No spinal TTP - Derm Derm: Normal color, Warm and dry, No rash - Extremities Extremities: No deformity, No tenderness to palpate, Normal ROM s pain - Neuro Neuro: Alert and oriented X 3, fiber optic assembler 2-12 intact, No motor deficit, No sensory deficit, Normal speech - Psych Psych: Normal mood, Normal affect Results - Vitals Vitals: Vital Signs - 24 hr 05/02/22 05/02/22 05/02/22 21:13 23:15 23:29 Temperature 37.9 C 37.2 C Heart Rate 120 H 97 Respiratory 24 16 Rate Blood Pressure 146/71 H 105/66 O2 Saturation 98 97 05/02/22 23:49 Temperature 37 C Heart Rate 96 Respiratory 16 Rate Blood Pressure 107/66 O2 Saturation 97 Oxygen O2 Source Room air - Labs Labs: Laboratory Tests 05/02/22 05/02/22 05/02/22 21:42 21:42 21:42 WBC 7.1 RBC 5.11 Hgb 10.7 L Hct 35.1 L MCV 68.7 L MCH 20.9 L MCHC 30.5 L RDW 17.9 H Plt Count 369 MPV 10.6 Neut # (Auto) 5.9 Lymph # (Auto) 0.3 L [place] # (Auto) 0.8 Eos # (Auto) 0.0 Baso # (Auto) 0.0 Absolute Nucleated RBC 0.00 Nucleated RBC % 0.0 Manual Slide Review Indicated WBC Morphology NORMAL APPEARANCE Platelet Estimate NORMAL (130-450,000) Platelet Morphology 1+ LARGE PLATELETS RBC Morph Micro Appear 2+ MICROCYTOSIS D-Dimer Sodium 132 L Potassium 3.8 Chloride 102 Carbon Dioxide 23 Anion Gap 7.0 BUN 12 Creatinine 0.7 Estimated GFR (MDRD) 104 Glucose 103 H Calcium 8.5 Total Bilirubin 0.6 AST 13 ALT 16 Alkaline Phosphatase 93 Troponin I High Sens < 2.3 L Total Protein 7.5 Albumin 4.1 Globulin 3.4 Albumin/Globulin Ratio 1.2 05/02/22 21:42 WBC RBC Hgb Hct MCV MCH MCHC RDW Plt Count MPV Neut # (Auto) Lymph # (Auto) [place] # (Auto) Eos # (Auto) Baso # (Auto) Absolute Nucleated RBC Nucleated RBC % Manual Slide Review WBC Morphology Platelet Estimate Platelet Morphology RBC Morph Micro Appear D-Dimer 209.4 Sodium Potassium Chloride Carbon Dioxide Anion Gap BUN Creatinine Estimated GFR (MDRD) Glucose Calcium Total Bilirubin AST ALT Alkaline Phosphatase Troponin I High Sens Total Protein Albumin Globulin Albumin/Globulin Ratio PD MEDICAL DECISION MAKING - ED course Complexity details: reviewed old records, reviewed results, re-evaluated patient, considered differential, d/w patient, d/w family ED course: Patient presenting for sore throat, chest pain, shortness of breath. Patient taking shallow breaths and not breathing deeply because "it hurts everywhere from my chest to my hips". Temperature is mildly elevated, nearly febrile. D- dimer negative. Chest x-ray shows possible vascular crowding, however this is thought to be much more likely due to poor inspiratory effort. EKG otherwise unremarkable, troponin negative. Patient given Toradol and IV fluids with improvement in symptoms. Symptoms thought to be likely secondary to viral syndrome given that the patient had elevated temperature and sore throat preceding symptoms. Counseled to take Tylenol and Motrin as needed for symptoms, and to drink plenty of fluids and get rest. PCP follow-up advised. Departure - Departure Disposition: 01 Home, Self Care Clinical Impression: Nonspecific syndrome suggestive of viral illness Condition: Stable Instructions: ED Viral Syndrome Comments: Today your laboratory work, your chest x-ray, your EKG were unremarkable. Please take Tylenol and Motrin at home for symptoms. Drink plenty fluids, get plenty of rest. Discharge Date/Time: 05/02/22 23:49
[2022-05-02 23:51] VITALS: BP 107/66
== END 2022-05-02 23:49 | disposition home or self-care (01) ==
LOC: ED 21:09
DX: R07.9 Chest pain, unspecified (principal); R06.09 Other forms of dyspnea
CPT/HCPCS: 36415; 80053; 84484; 85025; 85379; 93005; 96360; 99284

== ENCOUNTER 2022-07-01 19:25 | Emergency (ER) | payer MEDICAID ==
[2022-07-01 19:39] VITALS: BP 167/116
--- OUTSIDE RECORDS SUMMARY | 2022-07-01 19:41 | EXTERNAL MEDICAL SUMMARY RPT | Continuity of Care Document ---
:2000 Author Organization [facility] Address [address] [place] [address] Phone Allergies and Intolerances date description facility type (no date) Bleach (Sodium Hypochlorite) [facility] (unknown) Encounters No information. Functional Status No information. Immunizations No information. Medications No information. Problems No information. Procedures No information. Results/Labs test date author facility value unit interpret ation Result panel 1 (unknown) (no date) (unknown) (unknown) (no value) (units (un known) unknown) (unknown) (no date) (unknown) (unknown) [id number] (units (unk nown) unknown) (unknown) (no date) (unknown) (unknown) 05/26/22 (units (unkn own) unknown) (unknown) (no date) (unknown) (unknown) [address] (units (unk nown) [address] unknown) (unknown) (no date) (unknown) (unknown) Accession (units (unk nown) Number: unknown) [id number] (unknown) (no date) (unknown) (unknown) Accession (units (unk nown) Number: unknown) [id number] (unknown) (no date) (unknown) (unknown) Accession (units (unk nown) Number: unknown) [id number] (unknown) (no date) (unknown) (unknown) Accession (units (unk nown) Number: unknown) [id number] (unknown) (no date) (unknown) (unknown) Age/Sex: 21 / (units (unknown) F Date of unknown) Service: (unknown) (no date) (unknown) (unknown) [place] (units (unknown) [id number] unknown) (unknown) (no date) (unknown) (unknown) Approved by: (units ( unknown) briana Nieto) Marsha on 05/26/2022 at 0:40 (unknown) (no date) (unknown) (unknown) Approved by: (units ( unknown) Garth Monterroso, unknown) M.D. on 05/26/2022 at 0:41 (unknown) (no date) (unknown) (unknown) Approved by: (units ( unknown) Garth Monterroso unknown) M.D. on 05/26/2022 at 0:42 (unknown) (no date) (unknown) (unknown) Bones: 5 (units (unkn own) [id number] unknown) vertebrae are present. There is normal bony (unknown) (no date) (unknown) (unknown) Bones: No (units (unk nown) fractures or unknown) dislocations. Ankle mortise is normally aligned. No (unknown) (no date) (unknown) (unknown) Bones: No (units (unk nown) fractures or unknown) dislocations. No suspicious bony lesions. (unknown) (no date) (unknown) (unknown) Bones: No (units (unk nown) fractures or unknown) dislocations. Pelvic ring appears intact. No (unknown) (no date) (unknown) (unknown) COMPARISON: (units (u nknown) None. unknown) (unknown) (no date) (unknown) (unknown) : (units (unkn own) 2000 unknown) Acct:[id number] (unknown) (no date) (unknown) (unknown) Dictated by: (units ( unknown) Garth Monterroso unknown) M.D. on 05/26/2022 at 0:39 (unknown) (no date) (unknown) (unknown) Dictated by: (units ( unknown) Garth Monterroso unknown) M.D. on 05/26/2022 at 0:40 (unknown) (no date) (unknown) (unknown) Dictated by: (units ( unknown) briana Nieto) M.D. on 05/26/2022 at 0:41 (unknown) (no date) (unknown) (unknown) FINDINGS: (units (unk nown) unknown) (unknown) (no date) (unknown) (unknown) IMPRESSION: No (units (unknown) osseous trauma unknown) found. (unknown) (no date) (unknown) (unknown) IMPRESSION: No (units (unknown) trauma found. unknown) Surgical clips at the right lower quadrant (unknown) (no date) (unknown) (unknown) IMPRESSION: No (units (unknown) trauma found. unknown) (unknown) (no date) (unknown) (unknown) INDICATIONS: (units ( unknown) fall with R hip unknown) pain (unknown) (no date) (unknown) (unknown) INDICATIONS: (units ( unknown) fall with ankle unknown) pain (unknown) (no date) (unknown) (unknown) INDICATIONS: (units ( unknown) fall with back unknown) pain (unknown) (no date) (unknown) (unknown) INDICATIONS: (units ( unknown) fall with knee unknown) pain (unknown) (no date) (unknown) (unknown) [facility] (unknown) (no date) (unknown) (unknown) Loc: ED (units (unkn own) unknown) (unknown) (no date) (unknown) (unknown) Ordering (units (unkn own) Provider: unknown) Sunil Andrews D.O. (unknown) (no date) (unknown) (unknown) PROCEDURE: XR (units (unknown) ANKLE RT MIN 3V unknown) (unknown) (no date) (unknown) (unknown) PROCEDURE: XR (units (unknown) HIP W PEL IF unknown) DONE RT 2V (unknown) (no date) (unknown) (unknown) PROCEDURE: XR (units (unknown) KNEE RT 3V unknown) (unknown) (no date) (unknown) (unknown) PROCEDURE: XR (units (unknown) LUMBAR SPINE unknown) 2-3V (unknown) (no date) (unknown) (unknown) Patient: (units (unkn own) Jud Bae unknown) C MR#: [id number] (unknown) (no date) (unknown) (unknown) Procedure: XR (units (unknown) ankle RT min 3V unknown) (unknown) (no date) (unknown) (unknown) Procedure: XR (units (unknown) hip w pel if unknown) done RT 2V (unknown) (no date) (unknown) (unknown) Procedure: XR (units (unknown) knee RT 3V unknown) (unknown) (no date) (unknown) (unknown) Procedure: XR (units (unknown) lumbar spine unknown) 2-3V (unknown) (no date) (unknown) (unknown) Signed (units (unkn own) unknown) (unknown) (no date) (unknown) (unknown) Soft tissues: (units (unknown) No joint unknown) effusion. No suspicious soft tissue calcifications. (unknown) (no date) (unknown) (unknown) Soft tissues: (units (unknown) No tibiotalar unknown) joint effusion. Achilles tendon appears normal. (unknown) (no date) (unknown) (unknown) Soft tissues: (units (unknown) Overlying bowel unknown) gas pattern is normal. No suspicious soft (unknown) (no date) (unknown) (unknown) Soft tissues: (units (unknown) The visualized unknown) bowel gas pattern is normal. No suspicious soft (unknown) (no date) (unknown) (unknown) TECHNIQUE: 2 (units ( unknown) views of the unknown) lumbar spine were acquired. (unknown) (no date) (unknown) (unknown) TECHNIQUE: 3 (units ( unknown) views of the unknown) ankle were acquired. (unknown) (no date) (unknown) (unknown) TECHNIQUE: 3 (units ( unknown) views of the unknown) knee were acquired. (unknown) (no date) (unknown) (unknown) TECHNIQUE: AP (units (unknown) pelvis with unknown) lateral view(s) of the right hip(s). (unknown) (no date) (unknown) (unknown) XRay Report (units (u nknown) unknown) (unknown) (no date) (unknown) (unknown) alignment. No (units (unknown) unknown) (unknown) (no date) (unknown) (unknown) appendectomy. (units (unknown) unknown) (unknown) (no date) (unknown) (unknown) bony lesions. (units (unknown) unknown) (unknown) (no date) (unknown) (unknown) calcifications (units (unknown) . Surgical unknown) clips suggest prior appendectomy. (unknown) (no date) (unknown) (unknown) calcifications (units (unknown) . unknown) (unknown) (no date) (unknown) (unknown) lesions. (units (unkn own) unknown) (unknown) (no date) (unknown) (unknown) suggest prior (units (unknown) unknown) (unknown) (no date) (unknown) (unknown) suspicious (units (un known) bony unknown) (unknown) (no date) (unknown) (unknown) suspicious (units (un known) unknown) (unknown) (no date) (unknown) (unknown) tissue (units (unkn own) unknown) (unknown) (no date) (unknown) (unknown) vertebral body (units (unknown) compression unknown) fractures. No suspicious bony lesions. Result panel 2 (unknown) (no (unknown) (unknown) (no value) (units (unk nown) date) unknown) (unknown) (no (unknown) (unknown) [id number] (units (unkno wn) date) unknown) (unknown) (no (unknown) (unknown) 05/26/22 00:02 (units (unknown) date) unknown) (unknown) (no (unknown) (unknown) 12 point review (units (unknown) date) of systems is unknown) negative except for those stated above (unknown) (no (unknown) (unknown) 21-year-old (units (un known) date) female nonsmoker unknown) with noncontributory medical history presents with (unknown) (no (unknown) (unknown) Age/Sex: 21 / F (units (unknown) date) unknown) (unknown) (no (unknown) (unknown) Allergies (units (unkn own) date) unknown) (unknown) (no (unknown) (unknown) Allergy/AdvReac (units (unknown) date) Type Severity unknown) Reaction Status Date / Time (unknown) (no (unknown) (unknown) BACK: curing oven tender (units (unknown) date) but free of any unknown) obvious external abnormalities. Patient exam (unknown) (no (unknown) (unknown) Bleach (Sodium (units (unknown) date) Hypochlorite) unknown) Allergy Verified 02/04/22 18:14 (unknown) (no (unknown) (unknown) CARDIOVASCULAR: (units (unknown) date) Denies chest pain, unknown) palpitations, orthopnea, edema, (unknown) (no (unknown) (unknown) CARDIOVASCULAR: (units (unknown) date) Regular rate and unknown) rhythm without murmurs, gallops, or rubs. (unknown) (no (unknown) (unknown) Course (units (unkno wn) date) unknown) (unknown) (no (unknown) (unknown) : 2000 (units (unknown) date) Acct:[id number] unknown) (unknown) (no (unknown) (unknown) Date of Service: (units (unknown) date) 05/25/22 unknown) (unknown) (no (unknown) (unknown) Departure (units (unkn own) date) unknown) (unknown) (no (unknown) (unknown) Discharge Plan (units (unknown) date) unknown) (unknown) (no (unknown) (unknown) ED Orders (units (unkn own) date) unknown) (unknown) (no (unknown) (unknown) ENT: Nose without (units (unknown) date) bleeding, purulent unknown) drainage. Throat without erythema, (unknown) (no (unknown) (unknown) ER Physician: (units ( unknown) date) Sunil Andrews D.O. unknown) (unknown) (no (unknown) (unknown) EXTREMITIES: Full (units (unknown) date) but painful range unknown) of motion of right hip, knee and ankle. (unknown) (no (unknown) (unknown) EYES: Pupils (units (u nknown) date) equal round and unknown) reactive. Extraocular motions intact. No scleral (unknown) (no (unknown) (unknown) Emergency Report (units (unknown) date) unknown) (unknown) (no (unknown) (unknown) Exam Narrative: (units (unknown) date) unknown) (unknown) (no (unknown) (unknown) Exam (units (unkno wn) date) unknown) (unknown) (no (unknown) (unknown) GASTROINTESTINAL: (units (unknown) date) Abdomen soft, unknown) non-tender, nondistended. (unknown) (no (unknown) (unknown) GASTROINTESTINAL: (units (unknown) date) Denies nausea, unknown) vomiting, abdominal pain, diarrhea, (unknown) (no (unknown) (unknown) GENERAL: Denies (units (unknown) date) chills, fatigue, unknown) malaise, fever, sweats. (unknown) (no (unknown) (unknown) GENERAL: [21] (units ( unknown) date) year old patient unknown) appears stated age. Well-developed patient, in (unknown) (no (unknown) (unknown) : Denies (units (unk nown) date) dysuria, unknown) frequency, incontinence, hematuria, urinary retention. (unknown) (no (unknown) (unknown) General (units (unkno wn) date) unknown) (unknown) (no (unknown) (unknown) HEAD: Atraumatic. (units (unknown) date) Normocephalic. unknown) (unknown) (no (unknown) (unknown) HEENT: Denies (units ( unknown) date) sinus pain, ear unknown) pain, sore throat, difficulty swallowing, (unknown) (no (unknown) (unknown) HPI - Fall (units (unk nown) date) unknown) (unknown) (no (unknown) (unknown) HPI Narrative: (units (unknown) date) unknown) (unknown) (no (unknown) (unknown) History of (units (unk nown) date) Present Illness unknown) (unknown) (no (unknown) (unknown) [facility] (units (unknown) date) [address] [place] [address] Street unknown) [place] [address] (unknown) (no (unknown) (unknown) MUSCULOSKELETAL: (units (unknown) date) See HPI unknown) (unknown) (no (unknown) (unknown) Miscellaneous,Doc (units (unknown) date) MD lynnette [Primary unknown) Care Provider] (unknown) (no (unknown) (unknown) NECK: Trachea (units ( unknown) date) midline. Non unknown) tender (unknown) (no (unknown) (unknown) NEURO: AOx3. (units (u nknown) date) unknown) (unknown) (no (unknown) (unknown) NEUROLOGIC: (units (un known) date) Denies weakness, unknown) headache, numbness, change in speech, confusion, (unknown) (no (unknown) (unknown) Narrative (units (unkn own) date) unknown) (unknown) (no (unknown) (unknown) Narrative: (units (unk nown) date) unknown) (unknown) (no (unknown) (unknown) Ordered: (units (unkno wn) date) unknown) (unknown) (no (unknown) (unknown) Orders (units (unkno wn) date) unknown) (unknown) (no (unknown) (unknown) PSYCHIATRIC: No (units (unknown) date) concerning unknown) psychosocial issues. (unknown) (no (unknown) (unknown) Patient History (units (unknown) date) unknown) (unknown) (no (unknown) (unknown) Patient: (units (unkno wn) date) Jud Bae C unknown) MR#: [id number] (unknown) (no (unknown) (unknown) RESPIRATORY: Clear (units (unknown) date) to auscultation. unknown) Breath sounds equal bilaterally. No wheezes, (unknown) (no (unknown) (unknown) RESPIRATORY: (units (u nknown) date) Denies dyspnea, unknown) cough, wheezing, hemoptysis, sputum. (unknown) (no (unknown) (unknown) Referrals: (units (unk nown) date) unknown) (unknown) (no (unknown) (unknown) Related Data (units (u nknown) date) unknown) (unknown) (no (unknown) (unknown) Review of Systems (units (unknown) date) unknown) (unknown) (no (unknown) (unknown) SKIN: Denies (units (u nknown) date) rash, skin unknown) lesions, or other (unknown) (no (unknown) (unknown) SKIN: No rash or (units (unknown) date) erythema of unknown) visible areas (unknown) (no (unknown) (unknown) She has increased (units (unknown) date) pain on palpation unknown) but no obvious ligamentous instability or (unknown) (no (unknown) (unknown) She took Motrin (units (unknown) date) with little to no unknown) relief prior to her arrival. She states that (unknown) (no (unknown) (unknown) Signed By: (units (unk nown) date) unknown) (unknown) (no (unknown) (unknown) Smoking Status: (units (unknown) date) Former smoker unknown) (unknown) (no (unknown) (unknown) Social History (units (unknown) date) (Reviewed 05/26/22 unknown) @ 00:06 by Sunil Andrews DO) (unknown) (no (unknown) (unknown) Stated Complaint: (units (unknown) date) Rt. foot/leg/hip unknown) pain due to fall (unknown) (no (unknown) (unknown) Substance Use (units ( unknown) date) Type: does not use unknown) (unknown) (no (unknown) (unknown) Time Seen by (units (u nknown) date) Provider: 05/26/22 unknown) 00:02 (unknown) (no (unknown) (unknown) XR ankle RT min (units (unknown) date) 3V Stat unknown) (unknown) (no (unknown) (unknown) XR hip w pel if (units (unknown) date) done RT 2V Stat unknown) (unknown) (no (unknown) (unknown) XR knee RT 3V (units ( unknown) date) Stat unknown) (unknown) (no (unknown) (unknown) XR lumbar spine (units (unknown) date) 2-3V Stat unknown) (unknown) (no (unknown) (unknown) a friend and a (units (unknown) date) chief complaint of unknown) multiple injury suffered as a result of a (unknown) (no (unknown) (unknown) alcohol intake (units (unknown) date) frequency: unknown) holidays/special occasions only (unknown) (no (unknown) (unknown) but states as the (units (unknown) date) day has gone on unknown) she is developed increasing pain that starts (unknown) (no (unknown) (unknown) constipation, (units ( unknown) date) melena. unknown) (unknown) (no (unknown) (unknown) denies any head (units (unknown) date) neck injury. She unknown) denies loss of control of bowel or bladder. (unknown) (no (unknown) (unknown) dizziness. (units (unk nown) date) unknown) (unknown) (no (unknown) (unknown) effusions, these (units (unknown) date) injuries are unknown) closed and neurovascularly intact. (unknown) (no (unknown) (unknown) ground level fall (units (unknown) date) earlier today. At unknown) about 6:00 p.m. today she was getting into (unknown) (no (unknown) (unknown) her car when her (units (unknown) date) right ankle got unknown) caught up and caused her to fall onto her right (unknown) (no (unknown) (unknown) her last (units (unkno wn) date) menstrual cycle unknown) was a few weeks ago and there is 0 chance of her being (unknown) (no (unknown) (unknown) icterus. No (units (un known) date) injection or unknown) drainage. (unknown) (no (unknown) (unknown) in her low back (units (unknown) date) goes to her hip, unknown) knee and ankle. She has severe pain in his (unknown) (no (unknown) (unknown) mild distress. (units (unknown) date) Obviously in pain, unknown) enters department in wheelchair (unknown) (no (unknown) (unknown) notes decreased (units (unknown) date) range of motion unknown) and muscle spasm, but no CVA tenderness, or (unknown) (no (unknown) (unknown) . (units (unkn own) date) unknown) (unknown) (no (unknown) (unknown) rales, or (units (unkn own) date) rhonchi. unknown) (unknown) (no (unknown) (unknown) saddle (units (unkno wn) date) anesthesia, and unknown) decreased reflexes, decreased sensation or strength. (unknown) (no (unknown) (unknown) seizures, (units (unkn own) date) incoordination. unknown) (unknown) (no (unknown) (unknown) side landing on (units (unknown) date) her hip, knee and unknown) ankle. She had some minimal pain initially (unknown) (no (unknown) (unknown) tonsillar (units (unkn own) date) hypertrophy or unknown) exudate. Airway patent. (unknown) (no (unknown) (unknown) unable to weight (units (unknown) date) bear. She denies unknown) any numbness, tingling or weakness. She (unknown) (no (unknown) (unknown) vertebral point (units (unknown) date) tenderness. There unknown) are no symptoms of cauda equina such as Result panel 3 (unknown) (no (unknown) (unknown) (no value) (units (unk nown) date) unknown) (unknown) (no (unknown) (unknown) [id number] (units (unkno wn) date) unknown) (unknown) (no (unknown) (unknown) 00:06 (units (unkno wn) date) unknown) (unknown) (no (unknown) (unknown) 02/04/22 (units (unkno wn) date) unknown) (unknown) (no (unknown) (unknown) 05/26/22 00:02 (units (unknown) date) unknown) (unknown) (no (unknown) (unknown) 05/26/22 (units (unkno wn) date) unknown) (unknown) (no (unknown) (unknown) 12 point review (units (unknown) date) of systems is unknown) negative except for those stated above (unknown) (no (unknown) (unknown) [address] (units (unknown) date) unknown) (unknown) (no (unknown) (unknown) 21-year-old (units (un known) date) female nonsmoker unknown) with noncontributory medical history presents with (unknown) (no (unknown) (unknown) ? (units (unkno wn) date) unknown) (unknown) (no (unknown) (unknown) Accession Number: (units (unknown) date) [id number] ?? unknown) (unknown) (no (unknown) (unknown) Accession Number: (units (unknown) date) [id number] ?? unknown) (unknown) (no (unknown) (unknown) Accession Number: (units (unknown) date) [id number] ?? unknown) (unknown) (no (unknown) (unknown) Accession Number: (units (unknown) date) [id number] ?? unknown) (unknown) (no (unknown) (unknown) Acct:[id number] (units (unknown) date) unknown) (unknown) (no (unknown) (unknown) Age/Sex: 21 / F (units (unknown) date) unknown) (unknown) (no (unknown) (unknown) Allergies (units (unkn own) date) unknown) (unknown) (no (unknown) (unknown) Allergy/AdvReac (units (unknown) date) Type Severity unknown) Reaction Status Date / Time (unknown) (no (unknown) (unknown) [place], [place] (units ( unknown) date) [id number] unknown) (unknown) (no (unknown) (unknown) Ankle X-Ray (units (un known) date) (Signed) unknown) (unknown) (no (unknown) (unknown) Approved by: (units (u nknown) date) Garth Monterroso unknown) M.DLaurence on 05/26/2022 at 0:40 ? (unknown) (no (unknown) (unknown) Approved by: (units (u nknown) date) Garth Monterroso unknown) MLaurenceDLaurence on 05/26/2022 at 0:40? (unknown) (no (unknown) (unknown) Approved by: (units (u nknown) date) Garth Monterroso, unknown) Marsha on 05/26/2022 at 0:41 ? (unknown) (no (unknown) (unknown) Approved by: (units (u nknown) date) Garth Monterroso, unknown) Marsha on 05/26/2022 at 0:42 ? (unknown) (no (unknown) (unknown) BACK: curing oven tender (units (unknown) date) but free of any unknown) obvious external abnormalities. Patient exam (unknown) (no (unknown) (unknown) Bleach (Sodium (units (unknown) date) Hypochlorite) unknown) Allergy Verified 02/04/22 18:14 (unknown) (no (unknown) (unknown) Blood Pressure (units (unknown) date) 153/86 H 05/26/22 unknown) 00:06 (unknown) (no (unknown) (unknown) Blood Pressure (units (unknown) date) 153/86 H unknown) (unknown) (no (unknown) (unknown) Bones:? 5 (units (unkn own) date) [id number] unknown) vertebrae are present.? There is normal bony (unknown) (no (unknown) (unknown) Bones:? No (units (unk nown) date) fractures or unknown) dislocations.? Ankle mortise is normally aligned.? No (unknown) (no (unknown) (unknown) Bones:? No (units (unk nown) date) fractures or unknown) dislocations.? No suspicious bony lesions.? (unknown) (no (unknown) (unknown) Bones:? No (units (unk nown) date) fractures or unknown) dislocations.? Pelvic ring appears intact.? No (unknown) (no (unknown) (unknown) CARDIOVASCULAR: (units (unknown) date) Denies chest pain, unknown) palpitations, orthopnea, edema, (unknown) (no (unknown) (unknown) CARDIOVASCULAR: (units (unknown) date) Regular rate and unknown) rhythm without murmurs, gallops, or rubs. (unknown) (no (unknown) (unknown) COMPARISON:? (units (u nknown) date) None. unknown) (unknown) (no (unknown) (unknown) Chief Complaint: (units (unknown) date) Fall unknown) (unknown) (no (unknown) (unknown) Close (units (unkno wn) date) unknown) (unknown) (no (unknown) (unknown) Course (units (unkno wn) date) unknown) (unknown) (no (unknown) (unknown) : 2000 (units (unknown) date) Acct:[id number] unknown) (unknown) (no (unknown) (unknown) : 2000 (units (unknown) date) unknown) (unknown) (no (unknown) (unknown) Date of Service: (units (unknown) date) 05/25/22 unknown) (unknown) (no (unknown) (unknown) Date of Service: (units (unknown) date) 05/26/22 unknown) (unknown) (no (unknown) (unknown) Departure (units (unkn own) date) unknown) (unknown) (no (unknown) (unknown) Telly Nickerson (units (u nknown) date) unknown) (unknown) (no (unknown) (unknown) Dictated by: (units (u nknown) date) briana Nieto) MAnisa on 05/26/2022 at 0:39 ? ? (unknown) (no (unknown) (unknown) Dictated by: (units (u nknown) date) briana Nieto) MAnisa on 05/26/2022 at 0:40 ? ? (unknown) (no (unknown) (unknown) Dictated by: (units (u nknown) date) briana Nieto) MAnisa on 05/26/2022 at 0:41 ? ? (unknown) (no (unknown) (unknown) Discharge Plan (units (unknown) date) unknown) (unknown) (no (unknown) (unknown) Discontinued (units (u nknown) date) Medications unknown) (unknown) (no (unknown) (unknown) Documented By: EB (units (unknown) date) unknown) (unknown) (no (unknown) (unknown) ED Orders (units (unkn own) date) unknown) (unknown) (no (unknown) (unknown) ENT: Nose without (units (unknown) date) bleeding, purulent unknown) drainage. Throat without erythema, (unknown) (no (unknown) (unknown) ER Physician: (units ( unknown) date) Sunil Andrews D.O. unknown) (unknown) (no (unknown) (unknown) EXTREMITIES: Full (units (unknown) date) but painful range unknown) of motion of right hip, knee and ankle. (unknown) (no (unknown) (unknown) EYES: Pupils (units (u nknown) date) equal round and unknown) reactive. Extraocular motions intact. No scleral (unknown) (no (unknown) (unknown) Emergency Report (units (unknown) date) unknown) (unknown) (no (unknown) (unknown) Exam Narrative: (units (unknown) date) unknown) (unknown) (no (unknown) (unknown) Exam (units (unkno wn) date) unknown) (unknown) (no (unknown) (unknown) Extremity x-ray (units (unknown) date) #1: unknown) (unknown) (no (unknown) (unknown) Extremity x-ray (units (unknown) date) #2: unknown) (unknown) (no (unknown) (unknown) Extremity x-ray (units (unknown) date) #3: unknown) (unknown) (no (unknown) (unknown) FINDINGS:? (units (unk nown) date) unknown) (unknown) (no (unknown) (unknown) GASTROINTESTINAL: (units (unknown) date) Abdomen soft, unknown) non-tender, nondistended. (unknown) (no (unknown) (unknown) GASTROINTESTINAL: (units (unknown) date) Denies nausea, unknown) vomiting, abdominal pain, diarrhea, (unknown) (no (unknown) (unknown) GENERAL: Denies (units (unknown) date) chills, fatigue, unknown) malaise, fever, sweats. (unknown) (no (unknown) (unknown) GENERAL: [21] (units ( unknown) date) year old patient unknown) appears stated age. Well-developed patient, in (unknown) (no (unknown) (unknown) : Denies (units (unk nown) date) dysuria, unknown) frequency, incontinence, hematuria, urinary retention. (unknown) (no (unknown) (unknown) General (units (unkno wn) date) unknown) (unknown) (no (unknown) (unknown) HEAD: Atraumatic. (units (unknown) date) Normocephalic. unknown) (unknown) (no (unknown) (unknown) HEENT: Denies (units ( unknown) date) sinus pain, ear unknown) pain, sore throat, difficulty swallowing, (unknown) (no (unknown) (unknown) HPI - Fall (units (unk nown) date) unknown) (unknown) (no (unknown) (unknown) HPI Narrative: (units (unknown) date) unknown) (unknown) (no (unknown) (unknown) Hand X-Ray (units (unk nown) date) (Signed) unknown) (unknown) (no (unknown) (unknown) Garth Monterroso (units (unknown) date) unknown) (unknown) (no (unknown) (unknown) Hip X-Ray (units (unkn own) date) (Signed) unknown) (unknown) (no (unknown) (unknown) History of (units (unk nown) date) Present Illness unknown) (unknown) (no (unknown) (unknown) Hydrocodone (units (un known) date) Bitart/Acetaminoph unknown) en (Hydrocodone/Acet 5/325 Prepack) 1 bottle MISC (unknown) (no (unknown) (unknown) IMPRESSION:? No (units (unknown) date) osseous trauma unknown) found. (unknown) (no (unknown) (unknown) IMPRESSION:? No (units (unknown) date) trauma found. unknown) (unknown) (no (unknown) (unknown) IMPRESSION:? No (units (unknown) date) trauma found.? unknown) Surgical clips at the right lower quadrant (unknown) (no (unknown) (unknown) INDICATIONS:? (units ( unknown) date) fall with R hip unknown) pain (unknown) (no (unknown) (unknown) INDICATIONS:? (units ( unknown) date) fall with ankle unknown) pain (unknown) (no (unknown) (unknown) INDICATIONS:? (units ( unknown) date) fall with back unknown) pain (unknown) (no (unknown) (unknown) INDICATIONS:? (units ( unknown) date) fall with knee unknown) pain (unknown) (no (unknown) (unknown) Imaging Data (units (u nknown) date) unknown) (unknown) (no (unknown) (unknown) Initial Vital (units ( unknown) date) Signs unknown) (unknown) (no (unknown) (unknown) Initial Vital (units ( unknown) date) Signs: unknown) (unknown) (no (unknown) (unknown) [facility] (units (unknown) date) [address] unknown) [place] [address] (unknown) (no (unknown) (unknown) [facility] (units (unknown) date) unknown) (unknown) (no (unknown) (unknown) Knee X-Ray (units (unk nown) date) (Signed) unknown) (unknown) (no (unknown) (unknown) L Spine: (units (unkno wn) date) unknown) (unknown) (no (unknown) (unknown) Last Admin: (units (un known) date) 05/26/22 00:16 unknown) Dose: 1 bottle (unknown) (no (unknown) (unknown) Launch?Image (units (u nknown) date) unknown) (unknown) (no (unknown) (unknown) Loc: ED (units (unkno wn) date) unknown) (unknown) (no (unknown) (unknown) Lumbar Spine (units (u nknown) date) X-Ray (Signed) unknown) (unknown) (no (unknown) (unknown) MDM - Fall (units (unk nown) date) unknown) (unknown) (no (unknown) (unknown) MR#: [id number] (units (unknown) date) unknown) (unknown) (no (unknown) (unknown) MUSCULOSKELETAL: (units (unknown) date) See HPI unknown) (unknown) (no (unknown) (unknown) Miscellaneous,Doc (units (unknown) date) MD lynnette [Primary unknown) Care Provider] (unknown) (no (unknown) (unknown) NECK: Trachea (units ( unknown) date) midline. Non unknown) tender (unknown) (no (unknown) (unknown) NEURO: AOx3. (units (u nknown) date) unknown) (unknown) (no (unknown) (unknown) NEUROLOGIC: (units (un known) date) Denies weakness, unknown) headache, numbness, change in speech, confusion, (unknown) (no (unknown) (unknown) Narrative (units (unkn own) date) unknown) (unknown) (no (unknown) (unknown) Narrative: (units (unk nown) date) unknown) (unknown) (no (unknown) (unknown) Ordered: (units (unkno wn) date) unknown) (unknown) (no (unknown) (unknown) Ordering (units (unkno wn) date) Provider: unknown) Sunil Andrews D.O. (unknown) (no (unknown) (unknown) Orders (units (unkno wn) date) unknown) (unknown) (no (unknown) (unknown) Oxygen Delivery (units (unknown) date) Method 05/26/22 unknown) 00:06 (unknown) (no (unknown) (unknown) Oxygen Delivery (units (unknown) date) Method Room Air unknown) (unknown) (no (unknown) (unknown) PROCEDURE:? XR (units (unknown) date) ANKLE RT MIN 3V unknown) (unknown) (no (unknown) (unknown) PROCEDURE:? XR (units (unknown) date) HIP W PEL IF DONE unknown) RT 2V (unknown) (no (unknown) (unknown) PROCEDURE:? XR (units (unknown) date) KNEE RT 3V unknown) (unknown) (no (unknown) (unknown) PROCEDURE:? XR (units (unknown) date) LUMBAR SPINE 2-3V unknown) (unknown) (no (unknown) (unknown) PSYCHIATRIC: No (units (unknown) date) concerning unknown) psychosocial issues. (unknown) (no (unknown) (unknown) Patient History (units (unknown) date) unknown) (unknown) (no (unknown) (unknown) Patient: (units (unkno wn) date) Jud Bae unknown) MR#: [id number] (unknown) (no (unknown) (unknown) Patient: (units (unkno wn) date) Jud Bae unknown) (unknown) (no (unknown) (unknown) Procedure: XR (units ( unknown) date) ankle RT min 3V unknown) (unknown) (no (unknown) (unknown) Procedure: XR hip (units (unknown) date) w pel if done RT unknown) 2V (unknown) (no (unknown) (unknown) Procedure: XR (units ( unknown) date) knee RT 3V unknown) (unknown) (no (unknown) (unknown) Procedure: XR (units ( unknown) date) lumbar spine 2-3V unknown) (unknown) (no (unknown) (unknown) Pulse Oximetry 99 (units (unknown) date) 05/26/22 00:06 unknown) (unknown) (no (unknown) (unknown) Pulse Oximetry 99 (units (unknown) date) unknown) (unknown) (no (unknown) (unknown) Pulse Rate 78 (units ( unknown) date) 05/26/22 00:06 unknown) (unknown) (no (unknown) (unknown) Pulse Rate 78 (units ( unknown) date) unknown) (unknown) (no (unknown) (unknown) RESPIRATORY: Clear (units (unknown) date) to auscultation. unknown) Breath sounds equal bilaterally. No wheezes, (unknown) (no (unknown) (unknown) RESPIRATORY: (units (u nknown) date) Denies dyspnea, unknown) cough, wheezing, hemoptysis, sputum. (unknown) (no (unknown) (unknown) Radiologist's (units ( unknown) date) Impression: unknown) (unknown) (no (unknown) (unknown) Referrals: (units (unk nown) date) unknown) (unknown) (no (unknown) (unknown) Related Data (units (u nknown) date) unknown) (unknown) (no (unknown) (unknown) Respiratory Rate (units (unknown) date) 18 05/26/22 00:06 unknown) (unknown) (no (unknown) (unknown) Respiratory Rate (units (unknown) date) 18 unknown) (unknown) (no (unknown) (unknown) Review of Systems (units (unknown) date) unknown) (unknown) (no (unknown) (unknown) SEEINSTR ONE (units (u nknown) date) unknown) (unknown) (no (unknown) (unknown) SKIN: Denies (units (u nknown) date) rash, skin unknown) lesions, or other (unknown) (no (unknown) (unknown) SKIN: No rash or (units (unknown) date) erythema of unknown) visible areas (unknown) (no (unknown) (unknown) She has increased (units (unknown) date) pain on palpation unknown) but no obvious ligamentous instability or (unknown) (no (unknown) (unknown) She took Motrin (units (unknown) date) with little to no unknown) relief prior to her arrival. She states that (unknown) (no (unknown) (unknown) Signed By: (units (unk nown) date) unknown) (unknown) (no (unknown) (unknown) Signed (units (unkno wn) date) unknown) (unknown) (no (unknown) (unknown) Smoking Status: (units (unknown) date) Former smoker unknown) (unknown) (no (unknown) (unknown) Social History (units (unknown) date) (Reviewed 05/26/22 unknown) @ 00:06 by Sunil Andrews DO) (unknown) (no (unknown) (unknown) Soft tissues:? No (units (unknown) date) joint effusion.? unknown) No suspicious soft tissue calcifications.? (unknown) (no (unknown) (unknown) Soft tissues:? No (units (unknown) date) tibiotalar joint unknown) effusion.? Achilles tendon appears normal.? (unknown) (no (unknown) (unknown) Soft tissues:? (units ( unknown) date) Overlying bowel unknown) gas pattern is normal.? No suspicious soft tissue (unknown) (no (unknown) (unknown) Soft tissues:? (units (unknown) date) The visualized unknown) bowel gas pattern is normal.? No suspicious soft (unknown) (no (unknown) (unknown) Stated Complaint: (units (unknown) date) Rt. foot/leg/hip unknown) pain due to fall (unknown) (no (unknown) (unknown) Stop: 05/26/22 (units (unknown) date) 00:05 unknown) (unknown) (no (unknown) (unknown) Substance Use (units ( unknown) date) Type: does not use unknown) (unknown) (no (unknown) (unknown) TECHNIQUE:? 2 (units ( unknown) date) views of the unknown) lumbar spine were acquired.? (unknown) (no (unknown) (unknown) TECHNIQUE:? 3 (units ( unknown) date) views of the ankle unknown) were acquired.? (unknown) (no (unknown) (unknown) TECHNIQUE:? 3 (units ( unknown) date) views of the knee unknown) were acquired.? (unknown) (no (unknown) (unknown) TECHNIQUE:? AP (units (unknown) date) pelvis with unknown) lateral view(s) of the right hip(s).? (unknown) (no (unknown) (unknown) Temperature 98.3 (units (unknown) date) F 05/26/22 00:06 unknown) (unknown) (no (unknown) (unknown) Temperature 98.3 (units (unknown) date) F unknown) (unknown) (no (unknown) (unknown) Time Seen by (units (u nknown) date) Provider: 05/26/22 unknown) 00:02 (unknown) (no (unknown) (unknown) Vital Signs - 8 (units (unknown) date) hr unknown) (unknown) (no (unknown) (unknown) Vital Signs (units (un known) date) unknown) (unknown) (no (unknown) (unknown) Vital signs: (units (u nknown) date) unknown) (unknown) (no (unknown) (unknown) XR ankle RT min (units (unknown) date) 3V Stat unknown) (unknown) (no (unknown) (unknown) XR hip w pel if (units (unknown) date) done RT 2V Stat unknown) (unknown) (no (unknown) (unknown) XR knee RT 3V (units ( unknown) date) Stat unknown) (unknown) (no (unknown) (unknown) XR lumbar spine (units (unknown) date) 2-3V Stat unknown) (unknown) (no (unknown) (unknown) XRay Report (units (un known) date) unknown) (unknown) (no (unknown) (unknown) a friend and a (units (unknown) date) chief complaint of unknown) multiple injury suffered as a result of a (unknown) (no (unknown) (unknown) alcohol intake (units (unknown) date) frequency: unknown) holidays/special occasions only (unknown) (no (unknown) (unknown) alignment.? No (units (unknown) date) unknown) (unknown) (no (unknown) (unknown) appendectomy. (units ( unknown) date) unknown) (unknown) (no (unknown) (unknown) bony lesions.? (units (unknown) date) unknown) (unknown) (no (unknown) (unknown) but states as the (units (unknown) date) day has gone on unknown) she is developed increasing pain that starts (unknown) (no (unknown) (unknown) calcifications.? (units (unknown) date) Surgical clips unknown) suggest prior appendectomy. (unknown) (no (unknown) (unknown) calcifications.? (units (unknown) date) unknown) (unknown) (no (unknown) (unknown) constipation, (units ( unknown) date) melena. unknown) (unknown) (no (unknown) (unknown) denies any head (units (unknown) date) neck injury. She unknown) denies loss of control of bowel or bladder. (unknown) (no (unknown) (unknown) dizziness. (units (unk nown) date) unknown) (unknown) (no (unknown) (unknown) effusions, these (units (unknown) date) injuries are unknown) closed and neurovascularly intact. (unknown) (no (unknown) (unknown) ground level fall (units (unknown) date) earlier today. At unknown) about 6:00 p.m. today she was getting into (unknown) (no (unknown) (unknown) her car when her (units (unknown) date) right ankle got unknown) caught up and caused her to fall onto her right (unknown) (no (unknown) (unknown) her last (units (unkno wn) date) menstrual cycle unknown) was a few weeks ago and there is 0 chance of her being (unknown) (no (unknown) (unknown) icterus. No (units (un known) date) injection or unknown) drainage. (unknown) (no (unknown) (unknown) in her low back (units (unknown) date) goes to her hip, unknown) knee and ankle. She has severe pain in his (unknown) (no (unknown) (unknown) lesions.? (units (unkn own) date) unknown) (unknown) (no (unknown) (unknown) mild distress. (units (unknown) date) Obviously in pain, unknown) enters department in wheelchair (unknown) (no (unknown) (unknown) notes decreased (units (unknown) date) range of motion unknown) and muscle spasm, but no CVA tenderness, or (unknown) (no (unknown) (unknown) . (units (unkn own) date) unknown) (unknown) (no (unknown) (unknown) rales, or (units (unkn own) date) rhonchi. unknown) (unknown) (no (unknown) (unknown) saddle (units (unkno wn) date) anesthesia, and unknown) decreased reflexes, decreased sensation or strength. (unknown) (no (unknown) (unknown) seizures, (units (unkn own) date) incoordination. unknown) (unknown) (no (unknown) (unknown) side landing on (units (unknown) date) her hip, knee and unknown) ankle. She had some minimal pain initially (unknown) (no (unknown) (unknown) suggest prior (units ( unknown) date) unknown) (unknown) (no (unknown) (unknown) suspicious bony (units (unknown) date) unknown) (unknown) (no (unknown) (unknown) suspicious (units (unk nown) date) unknown) (unknown) (no (unknown) (unknown) tissue (units (unkno wn) date) unknown) (unknown) (no (unknown) (unknown) tonsillar (units (unkn own) date) hypertrophy or unknown) exudate. Airway patent. (unknown) (no (unknown) (unknown) unable to weight (units (unknown) date) bear. She denies unknown) any numbness, tingling or weakness. She (unknown) (no (unknown) (unknown) vertebral body (units (unknown) date) compression unknown) fractures.? No suspicious bony lesions.? (unknown) (no (unknown) (unknown) vertebral point (units (unknown) date) tenderness. There unknown) are no symptoms of cauda equina such as Result panel 4 (unknown) (no (unknown) (unknown) (no value) (units (unk nown) date) unknown) (unknown) (no (unknown) (unknown) [id number] (units (unkno wn) date) unknown) (unknown) (no (unknown) (unknown) 00:06 (units (unkno wn) date) unknown) (unknown) (no (unknown) (unknown) 02/04/22 (units (unkno wn) date) unknown) (unknown) (no (unknown) (unknown) 05/26/22 00:02 (units (unknown) date) unknown) (unknown) (no (unknown) (unknown) 05/26/22 (units (unkno wn) date) unknown) (unknown) (no (unknown) (unknown) 12 point review (units (unknown) date) of systems is unknown) negative except for those stated above (unknown) (no (unknown) (unknown) [address] [place] [address] (units (unknown) date) unknown) (unknown) (no (unknown) (unknown) 21-year-old (units (un known) date) female nonsmoker unknown) with noncontributory medical history presents with (unknown) (no (unknown) (unknown) ? (units (unkno wn) date) unknown) (unknown) (no (unknown) (unknown) Accession Number: (units (unknown) date) [id number] ?? unknown) (unknown) (no (unknown) (unknown) Accession Number: (units (unknown) date) [id number] ?? unknown) (unknown) (no (unknown) (unknown) Accession Number: (units (unknown) date) [id number] ?? unknown) (unknown) (no (unknown) (unknown) Accession Number: (units (unknown) date) [id number] ?? unknown) (unknown) (no (unknown) (unknown) Acct:[id number] (units (unknown) date) unknown) (unknown) (no (unknown) (unknown) Age/Sex: 21 / F (units (unknown) date) unknown) (unknown) (no (unknown) (unknown) Allergies (units (unkn own) date) unknown) (unknown) (no (unknown) (unknown) Allergy/AdvReac (units (unknown) date) Type Severity unknown) Reaction Status Date / Time (unknown) (no (unknown) (unknown) [place], [place] (units ( unknown) date) [id number] unknown) (unknown) (no (unknown) (unknown) Ankle X-Ray (units (un known) date) (Signed) unknown) (unknown) (no (unknown) (unknown) Approved by: (units (u nknown) date) Garth Monterroso, unknown) M.D. on 05/26/2022 at 0:40 ? (unknown) (no (unknown) (unknown) Approved by: (units (u nknown) date) briana Nieto) M.D. on 05/26/2022 at 0:40? (unknown) (no (unknown) (unknown) Approved by: (units (u nknown) date) Garth Monterroso unknown) M.D. on 05/26/2022 at 0:41 ? (unknown) (no (unknown) (unknown) Approved by: (units (u nknown) date) Garth Monterroso, unknownElsie Larson on 05/26/2022 at 0:42 ? (unknown) (no (unknown) (unknown) BACK: curing oven tender (units (unknown) date) but free of any unknown) obvious external abnormalities. Patient exam (unknown) (no (unknown) (unknown) Bleach (Sodium (units (unknown) date) Hypochlorite) unknown) Allergy Verified 02/04/22 18:14 (unknown) (no (unknown) (unknown) Blood Pressure (units (unknown) date) 153/86 H 05/26/22 unknown) 00:06 (unknown) (no (unknown) (unknown) Blood Pressure (units (unknown) date) 153/86 H unknown) (unknown) (no (unknown) (unknown) Bones:? 5 (units (unkn own) date) [id number] unknown) vertebrae are present.? There is normal bony (unknown) (no (unknown) (unknown) Bones:? No (units (unk nown) date) fractures or unknown) dislocations.? Ankle mortise is normally aligned.? No (unknown) (no (unknown) (unknown) Bones:? No (units (unk nown) date) fractures or unknown) dislocations.? No suspicious bony lesions.? (unknown) (no (unknown) (unknown) Bones:? No (units (unk nown) date) fractures or unknown) dislocations.? Pelvic ring appears intact.? No (unknown) (no (unknown) (unknown) CARDIOVASCULAR: (units (unknown) date) Denies chest pain, unknown) palpitations, orthopnea, edema, (unknown) (no (unknown) (unknown) CARDIOVASCULAR: (units (unknown) date) Regular rate and unknown) rhythm without murmurs, gallops, or rubs. (unknown) (no (unknown) (unknown) COMPARISON:? (units (u nknown) date) None. unknown) (unknown) (no (unknown) (unknown) Chief Complaint: (units (unknown) date) Fall unknown) (unknown) (no (unknown) (unknown) Close (units (unkno wn) date) unknown) (unknown) (no (unknown) (unknown) Course (units (unkno wn) date) unknown) (unknown) (no (unknown) (unknown) : 2000 (units (unknown) date) Acct:[id number] unknown) (unknown) (no (unknown) (unknown) : 2000 (units (unknown) date) unknown) (unknown) (no (unknown) (unknown) Date of Service: (units (unknown) date) 05/25/22 unknown) (unknown) (no (unknown) (unknown) Date of Service: (units (unknown) date) 05/26/22 unknown) (unknown) (no (unknown) (unknown) Departure (units (unkn own) date) unknown) (unknown) (no (unknown) (unknown) Telly Nickerson (units (u nknown) date) unknown) (unknown) (no (unknown) (unknown) Dictated by: (units (u nknown) date) Garth Monterroso, unknown) M.D. on 05/26/2022 at 0:39 ? ? (unknown) (no (unknown) (unknown) Dictated by: (units (u nknown) date) Garth Monterroso, unknown) M.D. on 05/26/2022 at 0:40 ? ? (unknown) (no (unknown) (unknown) Dictated by: (units (u nknown) date) briana Nieto) M.D. on 05/26/2022 at 0:41 ? ? (unknown) (no (unknown) (unknown) Discharge Plan (units (unknown) date) unknown) (unknown) (no (unknown) (unknown) Discontinued (units (u nknown) date) Medications unknown) (unknown) (no (unknown) (unknown) Documented By: EB (units (unknown) date) unknown) (unknown) (no (unknown) (unknown) ED Orders (units (unkn own) date) unknown) (unknown) (no (unknown) (unknown) ENT: Nose without (units (unknown) date) bleeding, purulent unknown) drainage. Throat without erythema, (unknown) (no (unknown) (unknown) ER Physician: (units ( unknown) date) Sunil Andrews D.O. unknown) (unknown) (no (unknown) (unknown) EXTREMITIES: Full (units (unknown) date) but painful range unknown) of motion of right hip, knee and ankle. (unknown) (no (unknown) (unknown) EYES: Pupils (units (u nknown) date) equal round and unknown) reactive. Extraocular motions intact. No scleral (unknown) (no (unknown) (unknown) Emergency Report (units (unknown) date) unknown) (unknown) (no (unknown) (unknown) Exam Narrative: (units (unknown) date) unknown) (unknown) (no (unknown) (unknown) Exam (units (unkno wn) date) unknown) (unknown) (no (unknown) (unknown) Extremity x-ray (units (unknown) date) #1: unknown) (unknown) (no (unknown) (unknown) Extremity x-ray (units (unknown) date) #2: unknown) (unknown) (no (unknown) (unknown) Extremity x-ray (units (unknown) date) #3: unknown) (unknown) (no (unknown) (unknown) FINDINGS:? (units (unk nown) date) unknown) (unknown) (no (unknown) (unknown) GASTROINTESTINAL: (units (unknown) date) Abdomen soft, unknown) non-tender, nondistended. (unknown) (no (unknown) (unknown) GASTROINTESTINAL: (units (unknown) date) Denies nausea, unknown) vomiting, abdominal pain, diarrhea, (unknown) (no (unknown) (unknown) GENERAL: Denies (units (unknown) date) chills, fatigue, unknown) malaise, fever, sweats. (unknown) (no (unknown) (unknown) GENERAL: [21] (units ( unknown) date) year old patient unknown) appears stated age. Well-developed patient, in (unknown) (no (unknown) (unknown) : Denies (units (unk nown) date) dysuria, unknown) frequency, incontinence, hematuria, urinary retention. (unknown) (no (unknown) (unknown) General (units (unkno wn) date) unknown) (unknown) (no (unknown) (unknown) HEAD: Atraumatic. (units (unknown) date) Normocephalic. unknown) (unknown) (no (unknown) (unknown) HEENT: Denies (units ( unknown) date) sinus pain, ear unknown) pain, sore throat, difficulty swallowing, (unknown) (no (unknown) (unknown) HPI - Fall (units (unk nown) date) unknown) (unknown) (no (unknown) (unknown) HPI Narrative: (units (unknown) date) unknown) (unknown) (no (unknown) (unknown) Hand X-Ray (units (unk nown) date) (Signed) unknown) (unknown) (no (unknown) (unknown) Garth Monterroso (units (unknown) date) unknown) (unknown) (no (unknown) (unknown) Hip X-Ray (units (unkn own) date) (Signed) unknown) (unknown) (no (unknown) (unknown) History of (units (unk nown) date) Present Illness unknown) (unknown) (no (unknown) (unknown) Hydrocodone (units (un known) date) Bitart/Acetaminoph unknown) en (Hydrocodone/Acet 5/325 Prepack) 1 bottle MISC (unknown) (no (unknown) (unknown) IMPRESSION:? No (units (unknown) date) osseous trauma unknown) found. (unknown) (no (unknown) (unknown) IMPRESSION:? No (units (unknown) date) trauma found. unknown) (unknown) (no (unknown) (unknown) IMPRESSION:? No (units (unknown) date) trauma found.? unknown) Surgical clips at the right lower quadrant (unknown) (no (unknown) (unknown) INDICATIONS:? (units ( unknown) date) fall with R hip unknown) pain (unknown) (no (unknown) (unknown) INDICATIONS:? (units ( unknown) date) fall with ankle unknown) pain (unknown) (no (unknown) (unknown) INDICATIONS:? (units ( unknown) date) fall with back unknown) pain (unknown) (no (unknown) (unknown) INDICATIONS:? (units ( unknown) date) fall with knee unknown) pain (unknown) (no (unknown) (unknown) Imaging Data (units (u nknown) date) unknown) (unknown) (no (unknown) (unknown) Initial Vital (units ( unknown) date) Signs unknown) (unknown) (no (unknown) (unknown) Initial Vital (units ( unknown) date) Signs: unknown) (unknown) (no (unknown) (unknown) [facility] (units (unknown) date) [address] unknown) [place] [address] (unknown) (no (unknown) (unknown) [facility] (units (unknown) date) unknown) (unknown) (no (unknown) (unknown) Knee X-Ray (units (unk nown) date) (Signed) unknown) (unknown) (no (unknown) (unknown) L Spine: (units (unkno wn) date) unknown) (unknown) (no (unknown) (unknown) Last Admin: (units (un known) date) 05/26/22 00:16 unknown) Dose: 1 bottle (unknown) (no (unknown) (unknown) Launch?Image (units (u nknown) date) unknown) (unknown) (no (unknown) (unknown) Loc: ED (units (unkno wn) date) unknown) (unknown) (no (unknown) (unknown) Lumbar Spine (units (u nknown) date) X-Ray (Signed) unknown) (unknown) (no (unknown) (unknown) MDM - Fall (units (unk nown) date) unknown) (unknown) (no (unknown) (unknown) MR#: [id number] (units (unknown) date) unknown) (unknown) (no (unknown) (unknown) MUSCULOSKELETAL: (units (unknown) date) See HPI unknown) (unknown) (no (unknown) (unknown) Miscellaneous,Doc (units (unknown) date) MD lynnette [Primary unknown) Care Provider] (unknown) (no (unknown) (unknown) NECK: Trachea (units ( unknown) date) midline. Non unknown) tender (unknown) (no (unknown) (unknown) NEURO: AOx3. (units (u nknown) date) unknown) (unknown) (no (unknown) (unknown) NEUROLOGIC: (units (un known) date) Denies weakness, unknown) headache, numbness, change in speech, confusion, (unknown) (no (unknown) (unknown) Narrative (units (unkn own) date) unknown) (unknown) (no (unknown) (unknown) Narrative: (units (unk nown) date) unknown) (unknown) (no (unknown) (unknown) Ordered: (units (unkno wn) date) unknown) (unknown) (no (unknown) (unknown) Ordering (units (unkno wn) date) Provider: unknown) Sunil Andrews D.O. (unknown) (no (unknown) (unknown) Orders (units (unkno wn) date) unknown) (unknown) (no (unknown) (unknown) Oxygen Delivery (units (unknown) date) Method 05/26/22 unknown) 00:06 (unknown) (no (unknown) (unknown) Oxygen Delivery (units (unknown) date) Method Room Air unknown) (unknown) (no (unknown) (unknown) PROCEDURE:? XR (units (unknown) date) ANKLE RT MIN 3V unknown) (unknown) (no (unknown) (unknown) PROCEDURE:? XR (units (unknown) date) HIP W PEL IF DONE unknown) RT 2V (unknown) (no (unknown) (unknown) PROCEDURE:? XR (units (unknown) date) KNEE RT 3V unknown) (unknown) (no (unknown) (unknown) PROCEDURE:? XR (units (unknown) date) LUMBAR SPINE 2-3V unknown) (unknown) (no (unknown) (unknown) PSYCHIATRIC: No (units (unknown) date) concerning unknown) psychosocial issues. (unknown) (no (unknown) (unknown) Patient History (units (unknown) date) unknown) (unknown) (no (unknown) (unknown) Patient: (units (unkno wn) date) Jud Bae unknown) MR#: [id number] (unknown) (no (unknown) (unknown) Patient: (units (unkno wn) date) Jud Bae unknown) (unknown) (no (unknown) (unknown) Procedure: XR (units ( unknown) date) ankle RT min 3V unknown) (unknown) (no (unknown) (unknown) Procedure: XR hip (units (unknown) date) w pel if done RT unknown) 2V (unknown) (no (unknown) (unknown) Procedure: XR (units ( unknown) date) knee RT 3V unknown) (unknown) (no (unknown) (unknown) Procedure: XR (units ( unknown) date) lumbar spine 2-3V unknown) (unknown) (no (unknown) (unknown) Pulse Oximetry 99 (units (unknown) date) 05/26/22 00:06 unknown) (unknown) (no (unknown) (unknown) Pulse Oximetry 99 (units (unknown) date) unknown) (unknown) (no (unknown) (unknown) Pulse Rate 78 (units ( unknown) date) 05/26/22 00:06 unknown) (unknown) (no (unknown) (unknown) Pulse Rate 78 (units ( unknown) date) unknown) (unknown) (no (unknown) (unknown) RESPIRATORY: Clear (units (unknown) date) to auscultation. unknown) Breath sounds equal bilaterally. No wheezes, (unknown) (no (unknown) (unknown) RESPIRATORY: (units (u nknown) date) Denies dyspnea, unknown) cough, wheezing, hemoptysis, sputum. (unknown) (no (unknown) (unknown) Radiologist's (units ( unknown) date) Impression: unknown) (unknown) (no (unknown) (unknown) Referrals: (units (unk nown) date) unknown) (unknown) (no (unknown) (unknown) Related Data (units (u nknown) date) unknown) (unknown) (no (unknown) (unknown) Respiratory Rate (units (unknown) date) 18 05/26/22 00:06 unknown) (unknown) (no (unknown) (unknown) Respiratory Rate (units (unknown) date) 18 unknown) (unknown) (no (unknown) (unknown) Review of Systems (units (unknown) date) unknown) (unknown) (no (unknown) (unknown) SEEINSTR ONE (units (u nknown) date) unknown) (unknown) (no (unknown) (unknown) SKIN: Denies (units (u nknown) date) rash, skin unknown) lesions, or other (unknown) (no (unknown) (unknown) SKIN: No rash or (units (unknown) date) erythema of unknown) visible areas (unknown) (no (unknown) (unknown) She has increased (units (unknown) date) pain on palpation unknown) but no obvious ligamentous instability or (unknown) (no (unknown) (unknown) She took Motrin (units (unknown) date) with little to no unknown) relief prior to her arrival. She states that (unknown) (no (unknown) (unknown) Signed By: (units (unk nown) date) unknown) (unknown) (no (unknown) (unknown) Signed (units (unkno wn) date) unknown) (unknown) (no (unknown) (unknown) Smoking Status: (units (unknown) date) Former smoker unknown) (unknown) (no (unknown) (unknown) Social History (units (unknown) date) (Reviewed 05/26/22 unknown) @ 00:06 by Sunil Andrews DO) (unknown) (no (unknown) (unknown) Soft tissues:? No (units (unknown) date) joint effusion.? unknown) No suspicious soft tissue calcifications.? (unknown) (no (unknown) (unknown) Soft tissues:? No (units (unknown) date) tibiotalar joint unknown) effusion.? Achilles tendon appears normal.? (unknown) (no (unknown) (unknown) Soft tissues:? (units ( unknown) date) Overlying bowel unknown) gas pattern is normal.? No suspicious soft tissue (unknown) (no (unknown) (unknown) Soft tissues:? (units (unknown) date) The visualized unknown) bowel gas pattern is normal.? No suspicious soft (unknown) (no (unknown) (unknown) Stated Complaint: (units (unknown) date) Rt. foot/leg/hip unknown) pain due to fall (unknown) (no (unknown) (unknown) Stop: 05/26/22 (units (unknown) date) 00:05 unknown) (unknown) (no (unknown) (unknown) Substance Use (units ( unknown) date) Type: does not use unknown) (unknown) (no (unknown) (unknown) TECHNIQUE:? 2 (units ( unknown) date) views of the unknown) lumbar spine were acquired.? (unknown) (no (unknown) (unknown) TECHNIQUE:? 3 (units ( unknown) date) views of the ankle unknown) were acquired.? (unknown) (no (unknown) (unknown) TECHNIQUE:? 3 (units ( unknown) date) views of the knee unknown) were acquired.? (unknown) (no (unknown) (unknown) TECHNIQUE:? AP (units (unknown) date) pelvis with unknown) lateral view(s) of the right hip(s).? (unknown) (no (unknown) (unknown) Temperature 98.3 (units (unknown) date) F 05/26/22 00:06 unknown) (unknown) (no (unknown) (unknown) Temperature 98.3 (units (unknown) date) F unknown) (unknown) (no (unknown) (unknown) Time Seen by (units (u nknown) date) Provider: 05/26/22 unknown) 00:02 (unknown) (no (unknown) (unknown) Vital Signs - 8 (units (unknown) date) hr unknown) (unknown) (no (unknown) (unknown) Vital Signs (units (un known) date) unknown) (unknown) (no (unknown) (unknown) Vital signs: (units (u nknown) date) unknown) (unknown) (no (unknown) (unknown) XR ankle RT min (units (unknown) date) 3V Stat unknown) (unknown) (no (unknown) (unknown) XR hip w pel if (units (unknown) date) done RT 2V Stat unknown) (unknown) (no (unknown) (unknown) XR knee RT 3V (units ( unknown) date) Stat unknown) (unknown) (no (unknown) (unknown) XR lumbar spine (units (unknown) date) 2-3V Stat unknown) (unknown) (no (unknown) (unknown) XRay Report (units (un known) date) unknown) (unknown) (no (unknown) (unknown) a friend and a (units (unknown) date) chief complaint of unknown) multiple injury suffered as a result of a (unknown) (no (unknown) (unknown) alcohol intake (units (unknown) date) frequency: unknown) holidays/special occasions only (unknown) (no (unknown) (unknown) alignment.? No (units (unknown) date) unknown) (unknown) (no (unknown) (unknown) appendectomy. (units ( unknown) date) unknown) (unknown) (no (unknown) (unknown) bony lesions.? (units (unknown) date) unknown) (unknown) (no (unknown) (unknown) but states as the (units (unknown) date) day has gone on unknown) she is developed increasing pain that starts (unknown) (no (unknown) (unknown) calcifications.? (units (unknown) date) Surgical clips unknown) suggest prior appendectomy. (unknown) (no (unknown) (unknown) calcifications.? (units (unknown) date) unknown) (unknown) (no (unknown) (unknown) constipation, (units ( unknown) date) melena. unknown) (unknown) (no (unknown) (unknown) denies any head (units (unknown) date) neck injury. She unknown) denies loss of control of bowel or bladder. (unknown) (no (unknown) (unknown) dizziness. (units (unk nown) date) unknown) (unknown) (no (unknown) (unknown) effusions, these (units (unknown) date) injuries are unknown) closed and neurovascularly intact. (unknown) (no (unknown) (unknown) ground level fall (units (unknown) date) earlier today. At unknown) about 6:00 p.m. today she was getting into (unknown) (no (unknown) (unknown) her car when her (units (unknown) date) right ankle got unknown) caught up and caused her to fall onto her right (unknown) (no (unknown) (unknown) her last (units (unkno wn) date) menstrual cycle unknown) was a few weeks ago and there is 0 chance of her being (unknown) (no (unknown) (unknown) icterus. No (units (un known) date) injection or unknown) drainage. (unknown) (no (unknown) (unknown) in her low back (units (unknown) date) goes to her hip, unknown) knee and ankle. She has severe pain in his (unknown) (no (unknown) (unknown) lesions.? (units (unkn own) date) unknown) (unknown) (no (unknown) (unknown) mild distress. (units (unknown) date) Obviously in pain, unknown) enters department in wheelchair (unknown) (no (unknown) (unknown) notes decreased (units (unknown) date) range of motion unknown) and muscle spasm, but no CVA tenderness, or (unknown) (no (unknown) (unknown) . (units (unkn own) date) unknown) (unknown) (no (unknown) (unknown) rales, or (units (unkn own) date) rhonchi. unknown) (unknown) (no (unknown) (unknown) saddle (units (unkno wn) date) anesthesia, and unknown) decreased reflexes, decreased sensation or strength. (unknown) (no (unknown) (unknown) seizures, (units (unkn own) date) incoordination. unknown) (unknown) (no (unknown) (unknown) side landing on (units (unknown) date) her hip, knee and unknown) ankle. She had some minimal pain initially (unknown) (no (unknown) (unknown) suggest prior (units ( unknown) date) unknown) (unknown) (no (unknown) (unknown) suspicious bony (units (unknown) date) unknown) (unknown) (no (unknown) (unknown) suspicious (units (unk nown) date) unknown) (unknown) (no (unknown) (unknown) tissue (units (unkno wn) date) unknown) (unknown) (no (unknown) (unknown) tonsillar (units (unkn own) date) hypertrophy or unknown) exudate. Airway patent. (unknown) (no (unknown) (unknown) unable to weight (units (unknown) date) bear. She denies unknown) any numbness, tingling or weakness. She (unknown) (no (unknown) (unknown) vertebral body (units (unknown) date) compression unknown) fractures.? No suspicious bony lesions.? (unknown) (no (unknown) (unknown) vertebral point (units (unknown) date) tenderness. There unknown) are no symptoms of cauda equina such as Result panel 5 (unknown) (no (unknown) (unknown) (no value) (units (unk nown) date) unknown) (unknown) (no (unknown) (unknown) <Electronically (units (unknown) date) signed by Sunil unknown) Mariana Andrews> (unknown) (no (unknown) (unknown) *If you do not have (unit s (unknown) date) a primary care unknown) provider please contact the [facility] (unknown) (no (unknown) (unknown) *Please continue to (unit s (unknown) date) take your regular unknown) medications as directed. (unknown) (no (unknown) (unknown) *Please follow up (units (unknown) date) with your primary unknown) care provider in 2-3 days, call for an (unknown) (no (unknown) (unknown) *Return to (units (unk nown) date) Emergency Department unknown) if you should have any new, worsening or (unknown) (no (unknown) (unknown) *What to do: (units (u nknown) date) unknown) (unknown) (no (unknown) (unknown) *You have been (units (unknown) date) diagnosed with unknown) [acute right-sided lumbar radiculopathy. As we (unknown) (no (unknown) (unknown) [id number] (units (unkno wn) date) unknown) (unknown) (no (unknown) (unknown) 00:06 (units (unkno wn) date) unknown) (unknown) (no (unknown) (unknown) 02/04/22 (units (unkno wn) date) unknown) (unknown) (no (unknown) (unknown) 1 tab PO Q4-6H PRN (units (unknown) date) (Reason: pain) Qty: unknown) 10 0RF (unknown) (no (unknown) (unknown) 10 mg PO Q6H PRN (units (unknown) date) (Reason: pain) Qty: unknown) 14 0RF (unknown) (no (unknown) (unknown) 10 mg PO TID PRN (units (unknown) date) (Reason: muscle unknown) spasm) Qty: 14 0RF (unknown) (no (unknown) (unknown) 05/26/22 00:02 (units (unknown) date) unknown) (unknown) (no (unknown) (unknown) 05/26/22 0145 (units ( unknown) date) unknown) (unknown) (no (unknown) (unknown) 05/26/22 (units (unkno wn) date) unknown) (unknown) (no (unknown) (unknown) 12 point review of (units (unknown) date) systems is negative unknown) except for those stated above (unknown) (no (unknown) (unknown) [address] [place] [address] (units (unknown) date) unknown) (unknown) (no (unknown) (unknown) 21-year-old female (units (unknown) date) nonsmoker with unknown) noncontributory medical history presents with (unknown) (no (unknown) (unknown) 300 mg PO BEDTIME (units (unknown) date) Qty: 14 0RF unknown) (unknown) (no (unknown) (unknown) ? (units (unkno wn) date) unknown) (unknown) (no (unknown) (unknown) Accession Number: (units (unknown) date) [id number] ?? unknown) (unknown) (no (unknown) (unknown) Accession Number: (units (unknown) date) [id number] ?? unknown) (unknown) (no (unknown) (unknown) Accession Number: (units (unknown) date) [id number] ?? unknown) (unknown) (no (unknown) (unknown) Accession Number: (units (unknown) date) [id number] ?? unknown) (unknown) (no (unknown) (unknown) Acct:[id number] (units (unknown) date) unknown) (unknown) (no (unknown) (unknown) Activity (units (unkno wn) date) Restrictions/Additio unknown) nal Instructions: (unknown) (no (unknown) (unknown) Additionally, you (units (unknown) date) cannot sign legal unknown) documents or perform any duties such as (unknown) (no (unknown) (unknown) Age/Sex: 21 / F (units (unknown) date) unknown) (unknown) (no (unknown) (unknown) Allergies (units (unkn own) date) unknown) (unknown) (no (unknown) (unknown) Allergy/AdvReac (units (unknown) date) Type Severity unknown) Reaction Status Date / Time (unknown) (no (unknown) (unknown) [place], [place] [address] (unit s (unknown) date) unknown) (unknown) (no (unknown) (unknown) Ankle X-Ray (units (un known) date) (Signed) unknown) (unknown) (no (unknown) (unknown) Approved by: Garth (units (unknown) date) Marsha Monterroso on unknown) 05/26/2022 at 0:40 ? (unknown) (no (unknown) (unknown) Approved by: Garth (units (unknown) date) Marsha Monterroso on unknown) 05/26/2022 at 0:40? (unknown) (no (unknown) (unknown) Approved by: Garth (units (unknown) date) Marsha Monterroso on unknown) 05/26/2022 at 0:41 ? (unknown) (no (unknown) (unknown) Approved by: Garth (units (unknown) date) Marsha Monterroso on unknown) 05/26/2022 at 0:42 ? (unknown) (no (unknown) (unknown) BACK: curing oven tender (units (unknown) date) but free of any unknown) obvious external abnormalities. Patient exam (unknown) (no (unknown) (unknown) Bleach (Sodium (units (unknown) date) Hypochlorite) unknown) Allergy Verified 02/04/22 18:14 (unknown) (no (unknown) (unknown) Blood Pressure (units (unknown) date) 153/86 H 05/26/22 unknown) 00:06 (unknown) (no (unknown) (unknown) Blood Pressure (units (unknown) date) 153/86 H unknown) (unknown) (no (unknown) (unknown) Bones:? 5 (units (unkn own) date) [id number] unknown) vertebrae are present.? There is normal bony (unknown) (no (unknown) (unknown) Bones:? No (units (unk nown) date) fractures or unknown) dislocations.? Ankle mortise is normally aligned.? No (unknown) (no (unknown) (unknown) Bones:? No (units (unk nown) date) fractures or unknown) dislocations.? No suspicious bony lesions.? (unknown) (no (unknown) (unknown) Bones:? No (units (unk nown) date) fractures or unknown) dislocations.? Pelvic ring appears intact.? No (unknown) (no (unknown) (unknown) CARDIOVASCULAR: (units (unknown) date) Denies chest pain, unknown) palpitations, orthopnea, edema, (unknown) (no (unknown) (unknown) CARDIOVASCULAR: (units (unknown) date) Regular rate and unknown) rhythm without murmurs, gallops, or rubs. (unknown) (no (unknown) (unknown) COMPARISON:? None. (units (unknown) date) unknown) (unknown) (no (unknown) (unknown) Chief Complaint: (units (unknown) date) Fall unknown) (unknown) (no (unknown) (unknown) Clinical (units (unkno wn) date) Impression: unknown) (unknown) (no (unknown) (unknown) Close (units (unkno wn) date) unknown) (unknown) (no (unknown) (unknown) Course (units (unkno wn) date) unknown) (unknown) (no (unknown) (unknown) : 2000 (units (unknown) date) Acct:[id number] unknown) (unknown) (no (unknown) (unknown) : 2000 (units (unknown) date) unknown) (unknown) (no (unknown) (unknown) Date of Service: (units (unknown) date) 05/25/22 unknown) (unknown) (no (unknown) (unknown) Date of Service: (units (unknown) date) 05/26/22 unknown) (unknown) (no (unknown) (unknown) Departure (units (unkn own) date) unknown) (unknown) (no (unknown) (unknown) Telly Nickerson (units (u nknown) date) unknown) (unknown) (no (unknown) (unknown) Dictated by: Garth (units (unknown) date) Marsha Monterroso on unknown) 05/26/2022 at 0:39 ? ? (unknown) (no (unknown) (unknown) Dictated by: Garth (units (unknown) date) Marsha Monterroso on unknown) 05/26/2022 at 0:40 ? ? (unknown) (no (unknown) (unknown) Dictated by: Garth (units (unknown) date) Marsha Monterroso on unknown) 05/26/2022 at 0:41 ? ? (unknown) (no (unknown) (unknown) Discharge Plan (units (unknown) date) unknown) (unknown) (no (unknown) (unknown) Discontinued (units (u nknown) date) Medications unknown) (unknown) (no (unknown) (unknown) Documented By: EB (units (unknown) date) unknown) (unknown) (no (unknown) (unknown) ED Orders (units (unkn own) date) unknown) (unknown) (no (unknown) (unknown) ENT: Nose without (units (unknown) date) bleeding, purulent unknown) drainage. Throat without erythema, (unknown) (no (unknown) (unknown) ER Physician: (units ( unknown) date) Sunil Andrews D.O. unknown) (unknown) (no (unknown) (unknown) EXTREMITIES: Full (units (unknown) date) but painful range of unknown) motion of right hip, knee and ankle. (unknown) (no (unknown) (unknown) EYES: Pupils equal (units (unknown) date) round and reactive. unknown) Extraocular motions intact. No scleral (unknown) (no (unknown) (unknown) Emergency Report (units (unknown) date) unknown) (unknown) (no (unknown) (unknown) Exam Narrative: (units (unknown) date) unknown) (unknown) (no (unknown) (unknown) Exam (units (unkno wn) date) unknown) (unknown) (no (unknown) (unknown) Extremity x-ray #1: (unit s (unknown) date) unknown) (unknown) (no (unknown) (unknown) Extremity x-ray #2: (unit s (unknown) date) unknown) (unknown) (no (unknown) (unknown) Extremity x-ray #3: (unit s (unknown) date) unknown) (unknown) (no (unknown) (unknown) FINDINGS:? (units (unk nown) date) unknown) (unknown) (no (unknown) (unknown) GASTROINTESTINAL: (units (unknown) date) Abdomen soft, unknown) non-tender, nondistended. (unknown) (no (unknown) (unknown) GASTROINTESTINAL: (units (unknown) date) Denies nausea, unknown) vomiting, abdominal pain, diarrhea, (unknown) (no (unknown) (unknown) GENERAL: Denies (units (unknown) date) chills, fatigue, unknown) malaise, fever, sweats. (unknown) (no (unknown) (unknown) GENERAL: [21] year (units (unknown) date) old patient appears unknown) stated age. Well-developed patient, in (unknown) (no (unknown) (unknown) : Denies dysuria, (unit s (unknown) date) frequency, unknown) incontinence, hematuria, urinary retention. (unknown) (no (unknown) (unknown) General (units (unkno wn) date) unknown) (unknown) (no (unknown) (unknown) HEAD: Atraumatic. (units (unknown) date) Normocephalic. unknown) (unknown) (no (unknown) (unknown) HEENT: Denies sinus (unit s (unknown) date) pain, ear pain, sore unknown) throat, difficulty swallowing, (unknown) (no (unknown) (unknown) HPI - Fall (units (unk nown) date) unknown) (unknown) (no (unknown) (unknown) HPI Narrative: (units (unknown) date) unknown) (unknown) (no (unknown) (unknown) Hand X-Ray (Signed) (unit s (unknown) date) unknown) (unknown) (no (unknown) (unknown) Garth Monterroso (units (unknown) date) unknown) (unknown) (no (unknown) (unknown) Hip X-Ray (Signed) (units (unknown) date) unknown) (unknown) (no (unknown) (unknown) History of Present (units (unknown) date) Illness unknown) (unknown) (no (unknown) (unknown) Hydrocodone (units (un known) date) Bitart/Acetaminophen unknown) (Hydrocodone/Acet 5/325 Prepack) 1 bottle MISC (unknown) (no (unknown) (unknown) IMPRESSION:? No (units (unknown) date) osseous trauma unknown) found. (unknown) (no (unknown) (unknown) IMPRESSION:? No (units (unknown) date) trauma found. unknown) (unknown) (no (unknown) (unknown) IMPRESSION:? No (units (unknown) date) trauma found.? unknown) Surgical clips at the right lower quadrant (unknown) (no (unknown) (unknown) INDICATIONS:? fall (units (unknown) date) with R hip pain unknown) (unknown) (no (unknown) (unknown) INDICATIONS:? fall (units (unknown) date) with ankle pain unknown) (unknown) (no (unknown) (unknown) INDICATIONS:? fall (units (unknown) date) with back pain unknown) (unknown) (no (unknown) (unknown) INDICATIONS:? fall (units (unknown) date) with knee pain unknown) (unknown) (no (unknown) (unknown) Imaging Data (units (u nknown) date) unknown) (unknown) (no (unknown) (unknown) Initial Vital Signs (unit s (unknown) date) unknown) (unknown) (no (unknown) (unknown) Initial Vital (units ( unknown) date) Signs: unknown) (unknown) (no (unknown) (unknown) Instructions: How (units (unknown) date) to Prevent Falls unknown) (unknown) (no (unknown) (unknown) [facility] (units (unknown) date) [address] unknown) [place] [address] (unknown) (no (unknown) (unknown) [facility] (units (unknown) date) unknown) (unknown) (no (unknown) (unknown) Knee X-Ray (Signed) (unit s (unknown) date) unknown) (unknown) (no (unknown) (unknown) L Spine: (units (unkno wn) date) unknown) (unknown) (no (unknown) (unknown) Last Admin: (units (un known) date) 05/26/22 00:16 Dose: unknown) 1 bottle (unknown) (no (unknown) (unknown) Launch?Image (units (u nknown) date) unknown) (unknown) (no (unknown) (unknown) Loc: ED (units (unkno wn) date) unknown) (unknown) (no (unknown) (unknown) Lumbar Spine X-Ray (units (unknown) date) (Signed) unknown) (unknown) (no (unknown) (unknown) Lumbar (units (unkno wn) date) radiculopathy, right unknown) (unknown) (no (unknown) (unknown) MDM - Fall (units (unk nown) date) unknown) (unknown) (no (unknown) (unknown) MR#: [id number] (units (unknown) date) unknown) (unknown) (no (unknown) (unknown) MUSCULOSKELETAL: (units (unknown) date) See HPI unknown) (unknown) (no (unknown) (unknown) Medication (units (unk nown) date) Instructions unknown) Recorded (unknown) (no (unknown) (unknown) Miscellaneous,[place] (unit s (unknown) date) MD cristine [Primary Care unknown) Provider] (unknown) (no (unknown) (unknown) NECK: Trachea (units ( unknown) date) midline. Non tender unknown) (unknown) (no (unknown) (unknown) NEURO: AOx3. (units (u nknown) date) unknown) (unknown) (no (unknown) (unknown) NEUROLOGIC: Denies (units (unknown) date) weakness, headache, unknown) numbness, change in speech, confusion, (unknown) (no (unknown) (unknown) Narrative (units (unkn own) date) unknown) (unknown) (no (unknown) (unknown) Narrative: (units (unk nown) date) unknown) (unknown) (no (unknown) (unknown) New (units (unkno wn) date) unknown) (unknown) (no (unknown) (unknown) Ordered: (units (unkno wn) date) unknown) (unknown) (no (unknown) (unknown) Ordering Provider: (units (unknown) date) Sunil Andrews D.O. unknown) (unknown) (no (unknown) (unknown) Orders (units (unkno wn) date) unknown) (unknown) (no (unknown) (unknown) Oxygen Delivery (units (unknown) date) Method 05/26/22 unknown) 00:06 (unknown) (no (unknown) (unknown) Oxygen Delivery (units (unknown) date) Method Room Air unknown) (unknown) (no (unknown) (unknown) PROCEDURE:? XR (units (unknown) date) ANKLE RT MIN 3V unknown) (unknown) (no (unknown) (unknown) PROCEDURE:? XR HIP (units (unknown) date) W PEL IF DONE RT 2V unknown) (unknown) (no (unknown) (unknown) PROCEDURE:? XR KNEE (unit s (unknown) date) RT 3V unknown) (unknown) (no (unknown) (unknown) PROCEDURE:? XR (units (unknown) date) LUMBAR SPINE 2-3V unknown) (unknown) (no (unknown) (unknown) PSYCHIATRIC: No (units (unknown) date) concerning unknown) psychosocial issues. (unknown) (no (unknown) (unknown) Patient (units (unkno wn) date) Disposition: Home unknown) (unknown) (no (unknown) (unknown) Patient History (units (unknown) date) unknown) (unknown) (no (unknown) (unknown) Patient: (units (unkno wn) date) Jud Bae unknown) MR#: [id number] (unknown) (no (unknown) (unknown) Patient: (units (unkno wn) date) Jud Bae unknown) (unknown) (no (unknown) (unknown) Please understand (units (unknown) date) that we cannot unknown) provide further refills of narcotics or (unknown) (no (unknown) (unknown) Prednisone (units (unk nown) date) (Prednisone 20 Mg unknown) Tablet) 40 mg PO NOW ONE (unknown) (no (unknown) (unknown) Prescriptions: (units (unknown) date) unknown) (unknown) (no (unknown) (unknown) Previous Rx's (units ( unknown) date) unknown) (unknown) (no (unknown) (unknown) Procedure: XR ankle (unit s (unknown) date) RT min 3V unknown) (unknown) (no (unknown) (unknown) Procedure: XR hip w (unit s (unknown) date) pel if done RT 2V unknown) (unknown) (no (unknown) (unknown) Procedure: XR knee (units (unknown) date) RT 3V unknown) (unknown) (no (unknown) (unknown) Procedure: XR (units ( unknown) date) lumbar spine 2-3V unknown) (unknown) (no (unknown) (unknown) Pulse Oximetry 99 (units (unknown) date) 05/26/22 00:06 unknown) (unknown) (no (unknown) (unknown) Pulse Oximetry 99 (units (unknown) date) unknown) (unknown) (no (unknown) (unknown) Pulse Rate 78 (units ( unknown) date) 05/26/22 00:06 unknown) (unknown) (no (unknown) (unknown) Pulse Rate 78 (units ( unknown) date) unknown) (unknown) (no (unknown) (unknown) RESPIRATORY: Clear (units (unknown) date) to auscultation. unknown) Breath sounds equal bilaterally. No wheezes, (unknown) (no (unknown) (unknown) RESPIRATORY: Denies (unit s (unknown) date) dyspnea, cough, unknown) wheezing, hemoptysis, sputum. (unknown) (no (unknown) (unknown) Radiologist's (units ( unknown) date) Impression: unknown) (unknown) (no (unknown) (unknown) Referrals: (units (unk nown) date) unknown) (unknown) (no (unknown) (unknown) Related Data (units (u nknown) date) unknown) (unknown) (no (unknown) (unknown) Resource line at (units (unknown) date) [phone]. They unknown) will ask some questions about your medical (unknown) (no (unknown) (unknown) Respiratory Rate 18 (unit s (unknown) date) 05/26/22 00:06 unknown) (unknown) (no (unknown) (unknown) Respiratory Rate 18 (unit s (unknown) date) unknown) (unknown) (no (unknown) (unknown) Review of Systems (units (unknown) date) unknown) (unknown) (no (unknown) (unknown) Rx Instructions: (units (unknown) date) unknown) (unknown) (no (unknown) (unknown) SEEINSTR ONE (units (u nknown) date) unknown) (unknown) (no (unknown) (unknown) SKIN: Denies rash, (units (unknown) date) skin lesions, or unknown) other (unknown) (no (unknown) (unknown) SKIN: No rash or (units (unknown) date) erythema of visible unknown) areas (unknown) (no (unknown) (unknown) See Rx Instructions (unit s (unknown) date) .ROUTE .COMPLEX Qty: unknown) 21 0RF (unknown) (no (unknown) (unknown) She has increased (units (unknown) date) pain on palpation unknown) but no obvious ligamentous instability or (unknown) (no (unknown) (unknown) She took Motrin (units (unknown) date) with little to no unknown) relief prior to her arrival. She states that (unknown) (no (unknown) (unknown) Signed By: (units (unk nown) date) unknown) (unknown) (no (unknown) (unknown) Signed (units (unkno wn) date) unknown) (unknown) (no (unknown) (unknown) Smoking Status: (units (unknown) date) Former smoker unknown) (unknown) (no (unknown) (unknown) Social History (units (unknown) date) (Reviewed 05/26/22 @ unknown) 00:06 by Sunil Andrews DO) (unknown) (no (unknown) (unknown) Soft tissues:? No (units (unknown) date) joint effusion.? No unknown) suspicious soft tissue calcifications.? (unknown) (no (unknown) (unknown) Soft tissues:? No (units (unknown) date) tibiotalar joint unknown) effusion.? Achilles tendon appears normal.? (unknown) (no (unknown) (unknown) Soft tissues:? (units ( unknown) date) Overlying bowel gas unknown) pattern is normal.? No suspicious soft tissue (unknown) (no (unknown) (unknown) Soft tissues:? The (units (unknown) date) visualized bowel gas unknown) pattern is normal.? No suspicious soft (unknown) (no (unknown) (unknown) Stated Complaint: (units (unknown) date) Rt. foot/leg/hip unknown) pain due to fall (unknown) (no (unknown) (unknown) Stop: 05/26/22 (units (unknown) date) 00:05 unknown) (unknown) (no (unknown) (unknown) Stop: 05/26/22 (units (unknown) date) 01:08 unknown) (unknown) (no (unknown) (unknown) Substance Use Type: (unit s (unknown) date) does not use unknown) (unknown) (no (unknown) (unknown) TECHNIQUE:? 2 views (unit s (unknown) date) of the lumbar spine unknown) were acquired.? (unknown) (no (unknown) (unknown) TECHNIQUE:? 3 views (unit s (unknown) date) of the ankle were unknown) acquired.? (unknown) (no (unknown) (unknown) TECHNIQUE:? 3 views (unit s (unknown) date) of the knee were unknown) acquired.? (unknown) (no (unknown) (unknown) TECHNIQUE:? AP (units (unknown) date) pelvis with lateral unknown) view(s) of the right hip(s).? (unknown) (no (unknown) (unknown) Temperature 98.3 F (units (unknown) date) 05/26/22 00:06 unknown) (unknown) (no (unknown) (unknown) Temperature 98.3 F (units (unknown) date) unknown) (unknown) (no (unknown) (unknown) Time Seen by (units (u nknown) date) Provider: 05/26/22 unknown) 00:02 (unknown) (no (unknown) (unknown) Vital Signs - 8 hr (units (unknown) date) unknown) (unknown) (no (unknown) (unknown) Vital Signs (units (un known) date) unknown) (unknown) (no (unknown) (unknown) Vital signs: (units (u nknown) date) unknown) (unknown) (no (unknown) (unknown) While on these (units (unknown) date) medications you unknown) cannot drive or operate heavy machinery. (unknown) (no (unknown) (unknown) XR ankle RT min 3V (units (unknown) date) Stat unknown) (unknown) (no (unknown) (unknown) XR hip w pel if (units (unknown) date) done RT 2V Stat unknown) (unknown) (no (unknown) (unknown) XR knee RT 3V Stat (units (unknown) date) unknown) (unknown) (no (unknown) (unknown) XR lumbar spine (units (unknown) date) 2-3V Stat unknown) (unknown) (no (unknown) (unknown) XRay Report (units (un known) date) unknown) (unknown) (no (unknown) (unknown) You have been (units ( unknown) date) prescribed a short unknown) course of narcotic medications. These are (unknown) (no (unknown) (unknown) [ ] New medication (units (unknown) date) written as a paper unknown) prescription (unknown) (no (unknown) (unknown) [ ] No new (units (unk nown) date) medications given unknown) (unknown) (no (unknown) (unknown) [ x] New medication (unit s (unknown) date) prescriptions sent unknown) to your pharmacy: [ [facility]] (unknown) (no (unknown) (unknown) a dose pack (Medrol (unit s (unknown) date) (Alejandro)) #21 ea unknown) (unknown) (no (unknown) (unknown) a friend and a (units (unknown) date) chief complaint of unknown) multiple injury suffered as a result of a (unknown) (no (unknown) (unknown) advisable to (units (u nknown) date) discuss stool unknown) softeners with the pharmacist when you hand picker your (unknown) (no (unknown) (unknown) alcohol intake (units (unknown) date) frequency: unknown) holidays/special occasions only (unknown) (no (unknown) (unknown) alignment.? No (units (unknown) date) unknown) (unknown) (no (unknown) (unknown) appendectomy. (units ( unknown) date) unknown) (unknown) (no (unknown) (unknown) appointment. Let (units (unknown) date) them know you were unknown) seen in the Emergency Department and that we (unknown) (no (unknown) (unknown) ask that you be (units (unknown) date) seen in follow up. unknown) We will electronically transmit a record of (unknown) (no (unknown) (unknown) bony lesions.? (units (unknown) date) unknown) (unknown) (no (unknown) (unknown) but states as the (units (unknown) date) day has gone on she unknown) is developed increasing pain that starts (unknown) (no (unknown) (unknown) calcifications.? (units (unknown) date) Surgical clips unknown) suggest prior appendectomy. (unknown) (no (unknown) (unknown) calcifications.? (units (unknown) date) unknown) (unknown) (no (unknown) (unknown) concerning (units (unk nown) date) symptoms, such as unknown) [fever greater than 101 F, shaking chills, (unknown) (no (unknown) (unknown) constipation, (units ( unknown) date) melena. unknown) (unknown) (no (unknown) (unknown) controlled (units (unk nown) date) substances through unknown) the ED and your pain management will need to be (unknown) (no (unknown) (unknown) cyclobenzaprine 10 (units (unknown) date) mg tablet 10 mg PO unknown) TID PRN muscle spasm #14 05/26/22 (unknown) (no (unknown) (unknown) cyclobenzaprine 10 (units (unknown) date) mg tablet unknown) (unknown) (no (unknown) (unknown) denies any head (units (unknown) date) neck injury. She unknown) denies loss of control of bowel or bladder. (unknown) (no (unknown) (unknown) discussed your (units (unknown) date) imaging is unknown) reassuring and there is no evidence of fracture or d (unknown) (no (unknown) (unknown) dizziness. (units (unk nown) date) unknown) (unknown) (no (unknown) (unknown) effusions, these (units (unknown) date) injuries are closed unknown) and neurovascularly intact. (unknown) (no (unknown) (unknown) gabapentin 300 mg (units (unknown) date) capsule 300 mg PO unknown) BEDTIME #14 caps 05/26/22 (unknown) (no (unknown) (unknown) gabapentin 300 mg (units (unknown) date) capsule unknown) (unknown) (no (unknown) (unknown) ground level fall (units (unknown) date) earlier today. At unknown) about 6:00 p.m. today she was getting into (unknown) (no (unknown) (unknown) her car when her (units (unknown) date) right ankle got unknown) caught up and caused her to fall onto her right (unknown) (no (unknown) (unknown) her last menstrual (units (unknown) date) cycle was a few unknown) weeks ago and there is 0 chance of her being (unknown) (no (unknown) (unknown) history and help (units (unknown) date) get you set up with unknown) a doctor in the community. (unknown) (no (unknown) (unknown) hydrocodone 5 (units ( unknown) date) mg-acetaminophen 325 unknown) 1 tab PO Q4-6H PRN pain #10 tabs 05/26/22 (unknown) (no (unknown) (unknown) hydrocodone-acetami (unit s (unknown) date) nophen 5-325 mg unknown) tablet (unknown) (no (unknown) (unknown) icterus. No (units (un known) date) injection or unknown) drainage. (unknown) (no (unknown) (unknown) in her low back (units (unknown) date) goes to her hip, unknown) knee and ankle. She has severe pain in his (unknown) (no (unknown) (unknown) islocation.] (units (u nknown) date) unknown) (unknown) (no (unknown) (unknown) ketorolac 10 mg (units (unknown) date) tablet 10 mg PO Q6H unknown) PRN pain #14 tabs 05/26/22 (unknown) (no (unknown) (unknown) ketorolac 10 mg (units (unknown) date) tablet unknown) (unknown) (no (unknown) (unknown) lesions.? (units (unkn own) date) unknown) (unknown) (no (unknown) (unknown) methylprednisolone (units (unknown) date) 4 mg tablets in See unknown) Rx Instructions PO .COMPLEX 05/26/22 (unknown) (no (unknown) (unknown) methylprednisolone (units (unknown) date) [Medrol (Alejandro)] 4 mg unknown) tablets,dose pack (unknown) (no (unknown) (unknown) mg tablet (units (unkn own) date) unknown) (unknown) (no (unknown) (unknown) mild distress. (units (unknown) date) Obviously in pain, unknown) enters department in wheelchair (unknown) (no (unknown) (unknown) notes decreased (units (unknown) date) range of motion and unknown) muscle spasm, but no CVA tenderness, or (unknown) (no (unknown) (unknown) orally per package (units (unknown) date) directions unknown) (unknown) (no (unknown) (unknown) potentially (units (un known) date) dangerous and unknown) addictive medications that should be used carefully. (unknown) (no (unknown) (unknown) . (units (unkn own) date) unknown) (unknown) (no (unknown) (unknown) prescription. (units ( unknown) date) unknown) (unknown) (no (unknown) (unknown) rales, or rhonchi. (units (unknown) date) unknown) (unknown) (no (unknown) (unknown) saddle anesthesia, (units (unknown) date) and decreased unknown) reflexes, decreased sensation or strength. (unknown) (no (unknown) (unknown) seizures, (units (unkn own) date) incoordination. unknown) (unknown) (no (unknown) (unknown) side landing on her (unit s (unknown) date) hip, knee and ankle. unknown) She had some minimal pain initially (unknown) (no (unknown) (unknown) suggest prior (units ( unknown) date) unknown) (unknown) (no (unknown) (unknown) suspicious bony (units (unknown) date) unknown) (unknown) (no (unknown) (unknown) suspicious (units (unk nown) date) unknown) (unknown) (no (unknown) (unknown) tabs (units (unkno wn) date) unknown) (unknown) (no (unknown) (unknown) this. Many people (units (unknown) date) get constipated on unknown) narcotic medications so it would be (unknown) (no (unknown) (unknown) through your (units (u nknown) date) Primary Care unknown) Provider (unknown) (no (unknown) (unknown) tissue (units (unkno wn) date) unknown) (unknown) (no (unknown) (unknown) today's note if (units (unknown) date) your PCP is in our unknown) system (unknown) (no (unknown) (unknown) tonsillar (units (unkn own) date) hypertrophy or unknown) exudate. Airway patent. (unknown) (no (unknown) (unknown) unable to weight (units (unknown) date) bear. She denies any unknown) numbness, tingling or weakness. She (unknown) (no (unknown) (unknown) vertebral body (units (unknown) date) compression unknown) fractures.? No suspicious bony lesions.? (unknown) (no (unknown) (unknown) vertebral point (units (unknown) date) tenderness. There unknown) are no symptoms of cauda equina such as (unknown) (no (unknown) (unknown) worsening pain, (units (unknown) date) persistent vomiting unknown) or other bothersome symptoms] Social History No information. Vital Signs No information.
[2022-07-01] MEDS ORDERED: KETOROLAC 60 MG/2 ML VIAL IM STA (19:52)
--- NOTE | 2022-07-01 19:56 | ED Physician Documentation ---
PD HPI Fall - Stated complaint Stated Complaint: GLF/BACK PX - Chief complaint Chief Complaint: Trauma Hd/Nk - History obtained from History obtained from: Patient, Family - History of Present Illness Mechanism of injury: Slipped Fall distance: Standing position Where injury occurred: Other (on outside bleachers) Timing - onset: Today Injury(ies) location: Back, Left Lower Extremity Associated symptoms: No: LOC, AMS, Amnesia, Seizures, Ear drainage, Nasal drainage, Neck pain, Weakness, Paresthesias, Dyspnea, Nausea / vomiting, Hematemesis, Abdominal distension Symptoms improve with: Rest Worsens with: Movement, Palpation Contributing factors: No: Anticoagulated, Intoxicated Similar symptoms before: Has not had sx before Recently seen: Not recently seen - Additional information Additional information: 21-year-old Malou Bae was on some bleachers when she fell forward on the bleachers tumbling down the bleachers landing on her left hip and low back. She is complaining of pain that is severe radiating from her hip into her pelvis. She has extreme pain when attempting to bear weight. She was able to get into the car with assistance of her to come to the emergency department for evaluation. She denies any loss of consciousness with the fall she denies any head injury associated with a fall. Review of Systems Constitutional: denies: Fever Throat: denies: Sore throat Respiratory: denies: Cough GI: denies: Vomiting, Diarrhea : denies: Dysuria, Frequency Skin: denies: Rash Musculoskeletal: reports: Back pain, Joint pain, Pain with weight bearing. denies: Neck pain PD PAST MEDICAL HISTORY - Past Medical History Cardiovascular: None Respiratory: None Neuro: None Endocrine/Autoimmune: None GI: Other NUCLEAR MEDICINE TECH: None : None HEENT: None Psych: Depression, Post traumatic stress disorder Musculoskeletal: None Derm: None - Past Surgical History Past Surgical History: Yes General: Appendectomy - Present Medications Home Medications: Ambulatory Orders Medication Instructions Recorded Confirmed Prazosin HCl [Minipress] 2 mg PO QPM 30 Days #30 cap 09/22/21 Sertraline [Zoloft] 25 mg PO DAILY 30 Days #30 tablet 09/22/21 Famotidine [Pepcid] 20 mg PO DAILY #20 tablet 10/11/21 Ondansetron Odt [Zofran] 4 mg TL Q6H PRN #20 tablet 10/11/21 Doxepin [SINEquan] 10 mg PO TID PRN #30 cap 01/28/22 predniSONE [Deltasone] 60 mg PO DAILY 5 Days #15 tablet 01/28/22 HYDROcod/ACETAM 5/325 [Alloy 5/325] 1 - 2 tablet PO Q6H PRN #14 tablet 07/01/22 - Allergies Allergies/Adverse Reactions: Allergies Allergy/AdvReac Type Severity Reaction Status Date / Time Bleach (Sodium Hypochlorite) Allergy Itching Verified 07/01/22 19:38 - Social History Does the pt smoke?: No Smoking Status: Never smoker Does the pt drink ETOH?: No Does the pt have substance abuse?: No - Immunizations Immunizations are current?: Yes - POLST Patient has POLST: No PD ED PE NORMAL - Vitals Vital signs reviewed: Yes - General General: Alert and oriented X 3, Well developed/nourished, Other (appears to be in pain with any movement dramatic tears. ) - HEENT HEENT: Atraumatic, PERRL, EOMI - Neck Neck: Supple, no meningeal sign, No bony TTP - Cardiac Cardiac: RRR, No murmur - Respiratory Respiratory: No respiratory distress, Clear bilaterally - Abdomen Abdomen: Normal bowel sounds, Soft, Non tender, Non distended, No organomegaly - Back Back: No CVA TTP, Other (There is tenderness to the left hip trochanter and with any movement of the left leg. The patient is garding and crying in pain. There i s pain to palpation of the lower lumbar spine as well. ) - Derm Derm: Normal color, Warm and dry, No rash - Extremities Extremities: No deformity, No edema - Neuro Neuro: Alert and oriented X 3, area cleaner 2-12 intact, No motor deficit, No sensory deficit Eye Opening: Spontaneous Motor: Obeys Commands Verbal: Oriented GCS Score: 15 - Psych Psych: Normal mood, Normal affect Results - Vitals Vitals: Vital Signs - 24 hr 07/01/22 19:36 Temperature 37.2 C Heart Rate 134 H Respiratory 30 H Rate Blood Pressure 167/116 H O2 Saturation 96 Oxygen O2 Source Room air - Rads (name of study) hip/pelvis L Radiology: Prelim report reviewed (Impression: 1. No fracture or dislocation.), EMP read indepedently, See rad report lumbar spine Radiology: Prelim report reviewed (Impression: 1. No definite fracture or subluxation.), EMP read indepedently, See rad report PD MEDICAL DECISION MAKING - ED course Complexity details: reviewed results, re-evaluated patient, considered differential, d/w patient, d/w family ED course: 21-year-old female who has had a fall on some bleachers has dramatic pain response and appears to have injured herself. We did obtain x-rays of the hip and lumbar spine without evidence of fracture and we were able to provide some pain relief to the patient with use of Toradol. She looks like she will be quite sore for some time and I have provided a limited amount of narcotic pain reliever for this patient. Departure - Departure Disposition: 01 Home, Self Care Clinical Impression: Contusion of hip, left Qualifiers: Encounter type: initial encounter Qualified Code(s): S70.02XA - Contusion of left hip, initial encounter Lumbosacral strain Qualifiers: Encounter type: initial encounter Qualified Code(s): S39.012A - Strain of muscle, fascia and tendon of lower back, initial encounter Condition: Stable Instructions: ED Low Back Pain Injury, ED Contusion Hip Follow-Up: Jaime Farley MD [Physician No Access] - Prescriptions: HYDROcod/ACETAM 5/325 [Alloy 5/325] 1 - 2 tablet PO Q6H PRN #14 tablet PRN Reason: Pain Comments: Jud, today looks like you have contused your hip and strained your lower back and our expectation is for you to recover from this over the next 1 to 2 weeks. I have written a note for 5 days off on work. I have E scribed some Alloy to the [facility] in [place]. I have given you a name of a doctor in [place] for follow-up. Forms: Activity restrictions Discharge Date/Time: 07/01/22 22:10
--- NOTE | 2022-07-01 21:33 | XRAY Report ---
PROCEDURE: Hip w/Pelvis 2-3V LT INDICATIONS: fall hip and pelvis pain TECHNIQUE: AP pelvis with lateral view of the left hip. COMPARISON: None. FINDINGS: Bones: No fractures or dislocations. Pelvic ring appears intact. No suspicious bony lesions. Soft tissues: The visualized bowel gas pattern is normal. No suspicious soft tissue calcifications. IMPRESSION: 1. No fracture or dislocation. Reviewed by: Yuriy Nunez MD on 07/01/2022 9:32 PM PST Approved by: Yuriy Nunez MD on 07/01/2022 9:32 PM PST Station ID: [id number]
--- NOTE | 2022-07-01 21:37 | XRAY Report ---
PROCEDURE: Lumbar Spine 2 View INDICATIONS: fall 6 ft. pain in L hip and lower lumbar spine TECHNIQUE: 2 views of the lumbar spine were acquired. COMPARISON: None. FINDINGS: Bones: 5 [id number] vertebrae are present. There is a minimal rightward curvature of the lumba r spine. There is minimal retrolisthesis of T12 on L1, L1-L2, L2-L3, and L5-S1. No vertebral body com pression fractures. No suspicious bony lesions. Soft tissues: Overlying bowel gas pattern is normal. No suspicious soft tissue calcifications. IMPRESSION: 1. No definite fracture or subluxation. Reviewed by: Yuriy Nunez MD on 07/01/2022 9:35 PM PST Approved by: Yuriy Nunez MD on 07/01/2022 9:35 PM PST Station ID: [id number]
[2022-07-01] MEDS ORDERED: HYDROcod/ACET 5/325 Prepack 4 PO STA (21:50)
== END 2022-07-01 22:10 | disposition home or self-care (01) ==
LOC: ED 19:25
DX: S70.02XA Contusion of left hip, initial encounter (principal); S39.012A Strain of muscle, fascia and tendon of lower back, initial encounter; W10.8XXA Fall (on) (from) other stairs and steps, initial encounter; Y92.89 Other specified places as the place of occurrence of the external cause
CPT/HCPCS: 96372; 99284